=== PATIENT | male | born 1965 | race Caucasian/White ===

== ENCOUNTER → 2024-03-01 16:19 | Outpatient (REF) | payer OTHER, SELFPAY | LOC: RAD 16:19 | PROVIDERS: ATTENDING PHYSICIAN Nurse Practitioner Family; FAMILY PHYSICIAN Family Medicine | DX: R14.0 Abdominal distension (gaseous) (principal); R13.19 Other dysphagia | CPT/HCPCS: 74018 ==

== ENCOUNTER 2024-03-08 08:59 | Emergency (ER) | payer OTHER, SELFPAY ==
[2024-03-08 09:15] VITALS: BP 155/100
[2024-03-08 09:34] LABS: % Basophils 0.8 % (0-2); % Immature Granulocytes 0.3 % (0-0.5); % Lymphocytes 30.2 % (20.5-51.1); % Monocytes 6.3 % (1.7-9.3); % Neutrophils 60.4 % (42.2-75.2); Absolute Basophils 0.1 10^3/uL (0-0.2); Absolute Eosinophils 0.1 10^3/uL (0-0.7); Absolute Lymphocytes 1.9 10^3/uL (1.2-3.4); Absolute Monocytes 0.4 10^3/uL (0.1-0.6); Absolute Neutrophils 3.8 10^3/uL (1.4-6.5); Hematocrit 45.4 % (39.0-52.0); Hemoglobin 16.5 g/dL (13.0-18.0); Mean Corp Hgb Conc. 36.3 g/dL (33.0-37.0); Mean Corpuscular Hgb 31.9 pg (27.0-31.0); Mean Corpuscular Volume 87.8 fL (80.0-94.0); Mean Platelet Volume 9.3 fL (7.4-10.4); Nucleated Red Blood Cells % 0 % (-); Platelet Count 240 10^3/uL (130-400); Red Blood Cell Count 5.17 10^6/uL (4.70-6.10); Red Cell Dist. Width 12.2 % (11.5-14.5); White Blood Cell Count 6.4 10^3/uL (4.8-10.8)
[2024-03-08 09:48] LABS: ALT (SGPT) 38 U/L (0-50); AST (SGOT) 29 U/L (17-59); Albumin 4.8 g/dl (3.5-5.0); Alkaline Phosphatase 57 U/L (38-126); Blood Urea Nitrogen 18 mg/dl (9-20); Calcium 9.9 mg/dl (8.4-10.2); Carbon Dioxide 24 mmol/L (22-30); Chloride 106 mmol/L (98-107); Glucose 102 mg/dl (70-99); Potassium 4.6 mmol/L (3.5-5.1); Sodium 138 mmol/L (135-145); Total Bilirubin 1.2 mg/dl (0.2-1.3); Total Protein 7.9 g/dl (6.3-8.2); eGFR > 60.00
[2024-03-08 09:59] LABS: Troponin I < 0.012 ng/ml
--- NOTE | 2024-03-08 09:59 | ED.GENMED ---
History of Present Illness
General
Chief Complaint: Chest Pain
Source: patient
Exam Limitations: none
Time Seen by Provider: 03/08/24 09:59
Nursing documentation reviewed up to this point in time: agreed with
Travel History
Have you had any contact with someone who has COVID-19?: No
Do you have any symptoms of coronavirus? Fever > 100 degrees, chills, cough, shortness of breath, sore throat, loss of taste or smell, muscle aches, or headache?: No
History of Present Illness
History of Present Illness:
58-year-old male with history of migraines, sciatica, sleep apnea, HTN, HLD, GERD, BPH, UTI, anxiety depression, panic disorder presents stating he woke at 3:30 a.m. with central chest pain radiatig to left arm, felt dizzy, got sweaty, had to run to
the bathroom and had 3 episodes diarrhea. Denies fever/chills. Denies nausea or vomiting.
Took Lorazepam, back to bed, with some improvement.
Pain was 9/10 at 3:30 a.m., now 5/10 and non radiating
Has suprapubic tube and took last dose of 9 doses of Fosfomycin 4 days ago. Followed by Urologist Dr. Parry. Has appt 03/12 for tube change.
Has been SOB with exertion for 'months'
Has appointment with his account financial manager in 3 days for pulmonary function testing.
He does admit to being anxious about his health 'I don't want to collapse and no one be around.' Followed 3 x week by Psychologist.
Past History
Past History
ED Past Medical History: GERD, HTN, Hypercholesterolemia, Psychiatric (Anxiety and Depression Panic disorder) and Other (sarcoidosis-in remission per pt 04/2017, 'aneurisms of carotids', concussion Sep 2016, migraines, Vertigo, Herniated disc, Sleep
apnea, Hiatal hernia, UTI, )
ED Past Surgical History: Orthopedic (ACL left knee repair, Jaw implants Laminectomy) and Urological (TURP, atonic bladder, suprapubic tube)
Patient has exhibited threatening behavior?: No
Social History
Tobacco: Non-smoker
Alcohol: None
Drug: None
Personal: Partner
Living: with roommate
Employment: Disabled
Family History
Family History: CAD and Other
Review of Systems
Review of Systems
Allergies reviewed?: Yes
All Other Systems: ROS reviewed and negative except as documented in HPI and ROS
Constitutional: Denies fever or fatigue
EENT: Reports other (dysphagia followed by GI Dr. Bustillo, for swallow study 03/14)
Respiratory: Reports trouble breathing (Has been short of breath with exertion for 'months.' He is followed by pulmonology. Next appt. in 3 days); Denies cough
Cardiac: Reports chest pain and diaphoresis; Denies palpitations or syncope
ABD/GI: Reports diarrhea (3 episodes during the night); Denies abdominal pain, nausea, vomiting or anorexia
: Reports other (suprapubic tube finished and final dose of Fosfomycin 03/04, to have tube changed 03/12)
Musculoskeletal: Reports back pain (chronic)
Skin: Reports no symptoms
Neurological: Reports dizzy and other (bilateral LE neuropathy); Denies headache, weakness or numbness
Phy Exam
Physical Exam
Physical Exam:
GENERAL: No acute distress. A&Ox3.
CONSTITUTIONAL: Afebrile.
EYES: Clear, conjunctivae normal
ENMT: moist mucus membranes, Pharynx nl
RESPIRATORY: Regular respirations, nonlabored, lungs clear.
CARDIOVASCULAR: Regular rate and rhythm, no murmurs, no rubs.
GI: Soft, nontender, normal BS, Suprapubic catheter intact.
MUSCULOSKELETAL: Moves with ease. Well perfused. No edema
SKIN: Warm, dry, pink
PSYCH: Normal mood and affect. Well kept, interactive and appropriate
NEUROLOGIC: Awake, alert and oriented. No focal neurological deficits
Scores
Heart Score for Chest Pain Patients
STEMI patient?: Not applicable
Course
Orders/Labs/Results
Orders:
Orders
03/08/24 09:07
EKG [Electrocardiogram (*1)] Urgent
Reason for Study: Chest Pain
EKG- Treatment ONCE
03/08/24 09:24
Complete Blood Count/With Diff Urgent
Comprehensive Metabolic Panel Urgent
Troponin I Urgent
03/08/24 10:00
CR Chest - 2 Views Urgent
Comment:
Reason For Exam: chest pain
Abnormal Lab Results
03/08/24
09:24
MCH 31.9 H pg
(27.0-31.0)
Glucose 102 H mg/dl
(70-99)
03/08/24 09:24
03/08/24 09:24
Vital Signs
Initial and Last Documented VS:
Initial Vital Signs
Temp Pulse Resp BP Pulse Ox
98.5 F 68 16 155/100 96
03/08/24 09:15 03/08/24 09:15 03/08/24 09:15 03/08/24 09:15 03/08/24 09:15
Last Documented Vital Signs
Temp Pulse Resp BP Pulse Ox
98.5 F 64 25 139/102 96
03/08/24 09:15 03/08/24 10:44 03/08/24 10:44 03/08/24 10:44 03/08/24 10:44
MDM/Problems Addressed
Differential Diagnosis Includes:
ACS, GERD, medication side effect, anxiety, musculoskeletal
MDM/Problems Addressed:
58-year-old male with history of migraines, sciatica, sleep apnea, HTN, HLD, GERD, BPH, UTI, anxiety depression, panic disorder presents stating he woke at 3:30 a.m. with central chest pain radiatig to left arm, felt dizzy, got sweaty, had to run to
the bathroom and had 3 episodes diarrhea. Denies fever/chills. Denies nausea or vomiting.
Took Lorazepam, back to bed, with some improvement.
Pain was 9/10 at 3:30 a.m., now 5/10 and non radiating
Has suprapubic tube and took last dose of 9 doses of Fosfomycin 4 days ago. Followed by Urologist Dr. Parry. Has appt 03/12 for tube change.
Has been SOB with exertion for 'months'
Has appointment with his account financial manager in 3 days for pulmonary function testing.
He does admit to being anxious about his health 'I don't want to collapse and no one be around.' Followed 3 x week by Psychologist.
10:10 AM
CBC normal
CMP normal troponin normal
Chest x-ray normal
EKG NSR
Side effects of fosfomycin include dyspepsia, diarrhea and these may be the etiology of patient's symptoms.
Patient does admit to being anxious about his health
Reassured nothing worrisome in today's workup
Patient will keep follow-up appointments with GI doctor, urologist, account financial manager and psychologist.
*Critical Care Note
Total Time (30-74mins, 75-104mins- exclusive of procedures): Not Applicable
ED Attending Note
-
Portions of this chart may have been created with voice recognition software.� Occasional wrong word or��sound alike� substitutions may have occurred due to the inherent limitations of voice recognition software.
Discharge Plan
Departure
Patient Disposition: Home (Routine Discharge)
Date of Disposition: 03/08/24
Time of Disposition: 10:51
Patient with high blood pressure during this ER visit?: No
Condition: Good
Discharge Problem:
Atypical chest pain, Anxiety about health
Instructions: Chest Pain That Is Not Caused by the Heart (DC), Acid Reflux and GERD in Adults (DC)
Prescriptions:
No Action
valacyclovir [Valtrex] 500 MG tablet
500 mg PO DAILY
lorazepam 1 MG tablet
1 mg PO BID PRN (Reason: ANXIETY)
Patient Comments:
11/18/2023: LAST FILLED 10/06/23, 60 TABS FOR 30 DAYS FROM [facility]#[id number]
famotidine 20 MG tablet
20 mg PO BID
nebivolol 2.5 MG tablet
1.25 mg PO HS
albuterol sulfate 90 mcg/actuation HFA aerosol inhaler
2 puff INHALATION R Q4 PRN (Reason: SOB/WHEEZING)
cyclosporine 0.05 % dropperette
1 drp BOTH EYES HS
metoclopramide HCl [Reglan] 10 mg tablet
10 mg PO Q8HPRN PRN (Reason: Migraine headache) Qty: 30 0RF
Referrals:
Your, Surface Grinder [Other] - Keep scheduled appt
Paolo Bustillo MD [Active] - Keep scheduled appt
Activity Restrictions/Additional Instructions:
As we discussed, there is nothing worrisome in your workup here today, specifically no sign of a heart attack.
Some of the side effects of fosfomycin include heartburn, nausea, diarrhea so your symptoms may be side effect from this medication. Keep your appointments with your account financial manager, GI doctor as scheduled.
Interventions
Interventions:
*Risk Screen - Suicide Last Done: 03/08/24 09:15
*General Assessment Last Done: 03/08/24 09:15
*Neglect/Abuse Screening Last Done: 03/08/24 09:15
*Nursing Disposition Last Done: 03/08/24 11:06
ED- Cardiac Assessment Last Done: 03/08/24 10:12
Discharge Date and Time
Discharge Date/Time: 03/08/24 11:11
Print Language: GEORGIAN
[2024-03-08 10:11] VITALS: BMI 29.7
[2024-03-08 10:44] VITALS: BP 139/102
== END 2024-03-08 11:11 | disposition home or self-care (01) ==
LOC: EMR 08:59
PROVIDERS: Physician Assistant; EMERGENCY PHYSICIAN Student in an Organized Health Care Education/Training Program; FAMILY PHYSICIAN Family Medicine
DX: R07.89 Other chest pain (principal); F41.9 Anxiety disorder, unspecified; R42 Dizziness and giddiness; R19.7 Diarrhea, unspecified; R06.02 Shortness of breath; G43.909 Migraine, unspecified, not intractable, without status migrainosus; R13.10 Dysphagia, unspecified; M54.30 Sciatica, unspecified side; G47.30 Sleep apnea, unspecified; E78.00 Pure hypercholesterolemia, unspecified; K21.9 Gastro-esophageal reflux disease without esophagitis; I10 Essential (primary) hypertension; N40.0 Benign prostatic hyperplasia without lower urinary tract symptoms; F41.0 Panic disorder [episodic paroxysmal anxiety]; F32.A Depression, unspecified; D86.9 Sarcoidosis, unspecified; G62.9 Polyneuropathy, unspecified; K44.9 Diaphragmatic hernia without obstruction or gangrene; M51.25 Other intervertebral disc displacement, thoracolumbar region; Z87.440 Personal history of urinary (tract) infections; Z87.820 Personal history of traumatic brain injury; Z88.1 Allergy status to other antibiotic agents; Z88.5 Allergy status to narcotic agent; Z88.2 Allergy status to sulfonamides; Z88.8 Allergy status to other drugs, medicaments and biological substances
CPT/HCPCS: 99284; 71046; 80053; 84484; 85025; 93005

== ENCOUNTER 2024-03-15 14:02 | Emergency (ER) | payer OTHER, SELFPAY ==
[2024-03-15 14:07] VITALS: BP 172/110
[2024-03-15 14:32] LABS: % Basophils 0.7 % (0-2); % Eosinophils 1.5 % (0-6); % Immature Granulocytes 0.1 % (0-0.5); % Monocytes 6.4 % (1.7-9.3); % Neutrophils 52.3 % (42.2-75.2); Absolute Basophils 0.1 10^3/uL (0-0.2); Absolute Eosinophils 0.1 10^3/uL (0-0.7); Absolute Lymphocytes 2.9 10^3/uL (1.2-3.4); Absolute Monocytes 0.5 10^3/uL (0.1-0.6); Absolute Neutrophils 3.9 10^3/uL (1.4-6.5); Hematocrit 47.7 % (39.0-52.0); Hemoglobin 16.9 g/dL (13.0-18.0); Mean Corp Hgb Conc. 35.4 g/dL (33.0-37.0); Mean Corpuscular Hgb 31.4 pg (27.0-31.0); Mean Corpuscular Volume 88.5 fL (80.0-94.0); Mean Platelet Volume 9.5 fL (7.4-10.4); Nucleated Red Blood Cells % 0 % (-); Platelet Count 221 10^3/uL (130-400); Red Blood Cell Count 5.39 10^6/uL (4.70-6.10); Red Cell Dist. Width 12.2 % (11.5-14.5); White Blood Cell Count 7.5 10^3/uL (4.8-10.8)
[2024-03-15 14:50] LABS: ALT (SGPT) 47 U/L (0-50); AST (SGOT) 30 U/L (17-59); Albumin 4.7 g/dl (3.5-5.0); Alkaline Phosphatase 54 U/L (38-126); Blood Urea Nitrogen 15 mg/dl (9-20); Calcium 9.6 mg/dl (8.4-10.2); Carbon Dioxide 26 mmol/L (22-30); Chloride 104 mmol/L (98-107); Glucose 87 mg/dl (70-99); Potassium 4.3 mmol/L (3.5-5.1); Sodium 135 mmol/L (135-145); Total Bilirubin 1.5 mg/dl (0.2-1.3); Total Protein 8.1 g/dl (6.3-8.2); eGFR > 60.00
[2024-03-15 14:59] LABS: Troponin I < 0.012 ng/ml
[2024-03-15 17:07] VITALS: BP 163/111
[2024-03-15 17:13] VITALS: BP 172/106
[2024-03-15 18:00] VITALS: BP 149/101
--- NOTE | 2024-03-15 19:02 | ED.GENMED ---
History of Present Illness
General
Chief Complaint: Chest Pain
Source: patient
Exam Limitations: none
Time Seen by Provider: 03/15/24 17:19
Nursing documentation reviewed up to this point in time: agreed with
Travel History
Have you had any contact with someone who has COVID-19?: No
Do you have any symptoms of coronavirus? Fever > 100 degrees, chills, cough, shortness of breath, sore throat, loss of taste or smell, muscle aches, or headache?: No
History of Present Illness
History of Present Illness:
Patient presents to ED for evaluation, after he developed chest pain with elevated blood pressure during outpatient, scheduled GI procedure this afternoon. Patient states that as the camera was being passed down his nose and down his throat, he
started gagging. This is when he developed chest pain, with left arm numbness sensation, along with elevated blood pressure. Denies shortness of breath. Denies headache. Denies nausea or vomiting. Patient does report feeling sweaty with
lightheaded sensation. Patient was subsequently transferred to ED for an evaluation. During the course of observation, patient states that his symptoms have all resolved.
Past History
Past History
ED Past Medical History: GERD, HTN, Hypercholesterolemia, Psychiatric (Anxiety and Depression Panic disorder) and Other (sarcoidosis-in remission per pt 04/2017, 'aneurisms of carotids', concussion Sep 2016, migraines, Vertigo, Herniated disc, Sleep
apnea, Hiatal hernia, UTI, )
ED Past Surgical History: Orthopedic (ACL left knee repair, Jaw implants Laminectomy) and Urological (TURP, atonic bladder, suprapubic tube)
Patient has exhibited threatening behavior?: No
Social History
Tobacco: Non-smoker
Alcohol: None
Drug: None
Personal: Partner
Living: with roommate
Employment: Disabled
Family History
Family History: CAD and Other
Review of Systems
Review of Systems
Allergies reviewed?: Yes
All Other Systems: ROS reviewed and negative except as documented in HPI and ROS
Constitutional: Reports no symptoms
EENT: Reports no symptoms
Respiratory: Reports no symptoms
Cardiac: Reports chest pain and diaphoresis
ABD/GI: Reports no symptoms
: Reports no symptoms
Musculoskeletal: Reports no symptoms
Skin: Reports no symptoms
Neurological: Reports dizzy
Phy Exam
Physical Exam
Physical Exam:
Physical Exam
General: no apparent distress, not acutely ill. afebrile
Head: nc/at. eomi
Neck: supple. no meningeal signs.
Heart: s1/s2 regular rate and rhythm, no murmur. equal radial pulses.
Lungs: no acute respiratory distress. clear bilaterally
Abdomen: normal bowel sounds. not tender.
Neuro: alert and oriented. no focal neurological deficits
Skin: no rash
Psychiatric: well kept. interactive and cooperative
Extremities: no edema. no calf tenderness.
Scores
Heart Score for Chest Pain Patients
STEMI patient?: Not applicable
Course
Orders/Labs/Results
Orders:
Orders
03/15/24 14:04
Electrocardiogram (*1) Urgent
Reason for Study: Chest Pain
EKG- Treatment ONCE
03/15/24 14:17
Complete Blood Count/With Diff Urgent
Comprehensive Metabolic Panel Urgent
Troponin I Urgent
Abnormal Lab Results
03/15/24
14:17
MCH 31.4 H pg
(27.0-31.0)
Total Bilirubin 1.5 H mg/dl
(0.2-1.3)
03/15/24 14:17
03/15/24 14:17
Vital Signs
Initial and Last Documented VS:
Initial Vital Signs
Temp Pulse Resp BP Pulse Ox
98.4 F 73 18 172/110 98
03/15/24 14:07 03/15/24 14:07 03/15/24 14:07 03/15/24 14:07 03/15/24 14:07
Last Documented Vital Signs
Temp Pulse Resp BP Pulse Ox
98.4 F 65 21 149/101 96
03/15/24 14:07 03/15/24 18:30 03/15/24 18:30 03/15/24 18:00 03/15/24 18:30
MDM/Problems Addressed
MDM/Problems Addressed:
History and exam consistent with likely vagal response from procedure. Since arrival to ED, patient has remained symptom-free. Blood pressure remains mildly elevated, but patient has not taken his evening blood pressure medication. As such,
patient will be discharged home at this time, with recommendation to follow-up with his pillowcase folder for reevaluation, including potentially additional medication to better control his blood pressure. Patient expresses understanding at time of
discharge.
*Critical Care Note
Total Time (30-74mins, 75-104mins- exclusive of procedures): Not Applicable
ED Attending Note
-
Portions of this chart may have been created with voice recognition software.� Occasional wrong word or��sound alike� substitutions may have occurred due to the inherent limitations of voice recognition software.
Discharge Plan
Departure
Patient Disposition: Home (Routine Discharge)
Date of Disposition: 03/15/24
Time of Disposition: 19:06
Patient with high blood pressure during this ER visit?: Yes
Discharge Problem:
Hypertension
Instructions: High Blood Pressure (DC)
Prescriptions:
No Action
valacyclovir [Valtrex] 500 MG tablet
500 mg PO DAILY
lorazepam 1 MG tablet
1 mg PO BID PRN (Reason: ANXIETY)
Patient Comments:
11/18/2023: LAST FILLED 10/06/23, 60 TABS FOR 30 DAYS FROM [id number]
famotidine 20 MG tablet
20 mg PO BID
nebivolol 2.5 MG tablet
1.25 mg PO HS
albuterol sulfate 90 mcg/actuation HFA aerosol inhaler
2 puff INHALATION R Q4 PRN (Reason: SOB/WHEEZING)
cyclosporine 0.05 % dropperette
1 drp BOTH EYES HS
metoclopramide HCl [Reglan] 10 mg tablet
10 mg PO Q8HPRN PRN (Reason: Migraine headache) Qty: 30 0RF
Referrals:
Maria A Mcintyre DO [Family Provider] -
Srinivas Delcid MD [Active] -
Activity Restrictions/Additional Instructions:
As discussed, please follow-up with your primary care physician and/or pillowcase folder for further evaluation treatment, including potential medication adjustment.
Interventions
Interventions:
*Risk Screen - Suicide Last Done: 03/15/24 14:04
*General Assessment Last Done: 03/15/24 14:04
*Neglect/Abuse Screening Last Done: 03/15/24 14:04
ED- Fall Risk Assessment Last Done: 03/15/24 19:29
*ED COVID-19 Vaccine History Last Done: 03/15/24 14:04
*Nursing Disposition Last Done: 03/15/24 19:29
ED- Cardiac Assessment Last Done: 03/15/24 17:37
Discharge Date and Time
Discharge Date/Time: 03/15/24 19:30
Print Language: [place]
== END 2024-03-15 19:30 | disposition home or self-care (01) ==
LOC: EMR 14:02
PROVIDERS: Emergency Medicine; EMERGENCY PHYSICIAN Emergency Medicine; FAMILY PHYSICIAN Family Medicine
DX: I10 Essential (primary) hypertension (principal)
CPT/HCPCS: 99284; 80053; 84484; 85025; 93005

== ENCOUNTER → 2024-04-02 07:04 | Outpatient (REF) | payer OTHER, SELFPAY | LOC: RCS 07:04 | PROVIDERS: ATTENDING PHYSICIAN Physician Assistant; FAMILY PHYSICIAN Family Medicine | DX: R07.89 Other chest pain (principal); I10 Essential (primary) hypertension; R07.9 Chest pain, unspecified; R06.02 Shortness of breath | CPT/HCPCS: 93306 ==

== ENCOUNTER 2024-04-07 13:23 | Emergency (ER) | payer OTHER, SELFPAY ==
[2024-04-07 13:30] VITALS: BP 163/122
[2024-04-07 14:07] LABS: ALT (SGPT) 44 U/L (0-50); AST (SGOT) 25 U/L (17-59); Albumin 4.7 g/dl (3.5-5.0); Alkaline Phosphatase 56 U/L (38-126); Blood Urea Nitrogen 8 mg/dl (9-20); Calcium 9.6 mg/dl (8.4-10.2); Carbon Dioxide 28 mmol/L (22-30); Chloride 105 mmol/L (98-107); Glucose 96 mg/dl (70-99); Potassium 4.1 mmol/L (3.5-5.1); Sodium 141 mmol/L (135-145); Total Bilirubin 0.9 mg/dl (0.2-1.3); Total Protein 7.8 g/dl (6.3-8.2); eGFR > 60.00
[2024-04-07 14:08] LABS: % Basophils 0.8 % (0-2); % Eosinophils 2.3 % (0-6); % Immature Granulocytes 0.3 % (0-0.5); % Lymphocytes 36.1 % (20.5-51.1); % Neutrophils 53.5 % (42.2-75.2); Absolute Basophils 0.1 10^3/uL (0-0.2); Absolute Eosinophils 0.2 10^3/uL (0-0.7); Absolute Lymphocytes 2.4 10^3/uL (1.2-3.4); Absolute Monocytes 0.5 10^3/uL (0.1-0.6); Absolute Neutrophils 3.5 10^3/uL (1.4-6.5); Hematocrit 45.8 % (39.0-52.0); Mean Corp Hgb Conc. 34.9 g/dL (33.0-37.0); Mean Corpuscular Hgb 31.2 pg (27.0-31.0); Mean Corpuscular Volume 89.3 fL (80.0-94.0); Mean Platelet Volume 9.6 fL (7.4-10.4); Nucleated Red Blood Cells % 0 % (-); Platelet Count 236 10^3/uL (130-400); Red Blood Cell Count 5.13 10^6/uL (4.70-6.10); Red Cell Dist. Width 12.2 % (11.5-14.5); White Blood Cell Count 6.6 10^3/uL (4.8-10.8)
[2024-04-07 14:42] LABS: Urine Albumin Trace (Neg - Trace); Urine Bilirubin 2+ (Negative); Urine Character Clear (Clear); Urine Glucose Negative (Negative); Urine Ketone Negative (Negative); Urine Leukocyte 2+ (Negative); Urine Nitrite Positive (Negative); Urine Occult Blood 2+ (Negative); Urine Urobilinogen 3+ (Neg - 1+)
[2024-04-07 14:52] LABS: Urine Color Orange
[2024-04-07 15:10] LABS: Urine Bacteria Few (Negative)
[2024-04-07 15:11] LABS: Urine White Cell 21-25 /HPF (0-5)
[2024-04-07 15:14] LABS: Urine Squamous Cell 0-2 /LPF (Few); Urine Urothelial Cell 0-2 /LPF (FEW)
--- NOTE | 2024-04-07 16:03 | ED.GENMED ---
History of Present Illness
General
Chief Complaint: Urinary Symptoms
Source: patient
Time Seen by Provider: 04/07/24 15:48
Travel History
Have you had any contact with someone who has COVID-19?: No
Do you have any symptoms of coronavirus? Fever > 100 degrees, chills, cough, shortness of breath, sore throat, loss of taste or smell, muscle aches, or headache?: No
History of Present Illness
History of Present Illness:
58-year-old male with chronic indwelling suprapubic Preston catheter presenting to the emergency department from urology office for evaluation of bilateral flank and groin pain over the last few days, had his suprapubic catheter changed a couple of
days ago and since that time has had worsening symptoms. Had an appointment at urology office today and due to the pain was sent to the ER for further evaluation. Patient reports that he had a bladder scan done at the office which did not show any
urine retained. He states pain to the bilateral testicles presently but no lesions or sores. He states that when he has to have a bowel movement he notes increased pressure and discomfort with in the suprapubic region and scrotum. Patient states
he has been taking Azo for bladder spasm with minimal relief. He notes that about a week or so ago he finished a course of amoxicillin for urinary tract infection. He denies any traumatic injuries. Has noted history for genital herpes in the past
but no current outbreaks. No other concerns.
Past History
Past History
ED Past Medical History: GERD, HTN, Hypercholesterolemia, Psychiatric (Anxiety and Depression Panic disorder) and Other (sarcoidosis-in remission per pt 04/2017, 'aneurisms of carotids', concussion Sep 2016, migraines, Vertigo, Herniated disc, Sleep
apnea, Hiatal hernia, UTI, )
ED Past Surgical History: Orthopedic (ACL left knee repair, Jaw implants Laminectomy) and Urological (TURP, atonic bladder, suprapubic tube)
Patient has exhibited threatening behavior?: No
Social History
Tobacco: Non-smoker
Alcohol: None
Drug: None
Personal: Partner
Living: with roommate
Employment: Disabled
Family History
Family History: CAD and Other
Review of Systems
Review of Systems
All Other Systems: ROS reviewed and negative except as documented in HPI and ROS
Phy Exam
Physical Exam
Physical Exam:
GENERAL: Alert , in no apparent distress but does appear uncomfortable
EYE: clear conjunctiva b/l
HEAD: NCAT
ENT: mmm.
ABDOMEN: Soft, without focal tenderness, no r/g, no cvat, negative Javier sign, no tenderness at McBurney's point
Genitourinary: Circumcised, normal lying testicles, positive cremasteric reflex bilateral, no testicular tenderness or epididymal tenderness, no overlying erythema, no perineal crepitus or erythema, no urethral discharge
NEUROLOGICAL: Alert and oriented
SKIN: Warm and dry, skin intact.
MUSCULOSKELETAL: No edema, well perfused.
PSYCH: Normal and appropriate interaction.
Scores
Heart Failure Risk
Heart Failure Risk Score: Not Applicable
Heart Score for Chest Pain Patients
STEMI patient?: Not applicable
Withdrawal Assessment of Alcohol
Withdrawal Assessment Completed?: Not applicable
Course
Orders/Labs/Results
Orders:
Orders
04/07/24 13:39
CT Abd/pelvis Wo Iv Cont Urgent
Comment:
Reason For Exam: pelvic pain since suprabulic tube placed
04/07/24 13:41
US Scrotum Urgent
Comment:
Reason For Exam: testicular pain
04/07/24 13:46
Complete Blood Count/With Diff Urgent
Comprehensive Metabolic Panel Urgent
Urinalysis Reflex To Culture Urgent
Date Specimen was Collected: 04/07/24
Time Specimen was Collected: 13:31
Urine Microscopic Reflex Cult Urgent
Urine Culture Urgent
LEXY Source: U
Specimen Description:
Date Specimen was Collected: 04/07/24
Time Specimen was Collected: 13:31
Abnormal Lab Results
04/07/24
13:46
MCH 31.2 H pg
(27.0-31.0)
BUN 8 L mg/dl
(9-20)
Ur Occult Blood Reflex 2+ A
(Negative)
Urine Nitrite (Reflex) Positive A
(Negative)
Urine Bilirubin 2+ A
(Negative)
Urine Urobilinogen 3+ A
(Neg - 1+)
Leukocyte Esterase Rfl 2+ A
(Negative)
Urine RBC 3-6 A /HPF
(0-2)
Urine WBC (Reflex) 21-25 A /HPF
(0-5)
Urine Bacteria (Reflex) Few A
(Negative)
04/07/24 13:46
04/07/24 13:46
Vital Signs
Initial and Last Documented VS:
Initial Vital Signs
Temp Pulse Resp BP Pulse Ox
97.9 F 79 17 163/122 99
04/07/24 13:30 04/07/24 13:30 04/07/24 13:30 04/07/24 13:30 04/07/24 13:30
Last Documented Vital Signs
Temp Pulse Resp BP Pulse Ox
97.6 F 72 16 148/82 99
04/07/24 17:04 04/07/24 17:04 04/07/24 17:04 04/07/24 17:04 04/07/24 17:04
MDM/Problems Addressed
Differential Diagnosis Includes:
Urinary tract infection, epididymitis/orchitis, renal/ureteral colic, chronic pain, catheter associated pain, pyelonephritis
MDM/Problems Addressed:
58-year-old male presenting emergency department for evaluation of gradually worsening pelvic pain/suprapubic pain after having recent catheter exchange. Patient was in so much discomfort at urology office today so was sent to the ER to be further
evaluated. Patient's labs show no leukocytosis or any renal dysfunction. Urinalysis is nitrite positive, 2+ leukocyte esterase and 21-[address] of the abdomen pelvis and ultrasound were ordered. Ultimately no acute findings on these tests
either. Patient has multiple previous culture reports and amoxicillin does appear to be resistant on some of his urine cultures so it certainly possible patient had antibiotic failure due to organism resistance. Will discuss case with urology to
help determine treatment plan and disposition.
Chronic conditions affecting care: Previous abdomnial surgery
Acute Exacerbation and/or Progression of Chronic Illness: Previous abdomnial surgery
*Radiology
Radiology exam reviewed: radiology read reviewed
*Pulse Oximetry
Patient hypoxic: no
*Critical Care Note
Total Time (30-74mins, 75-104mins- exclusive of procedures): Not Applicable
Data Reviewed
Review of Other/Old Records Reveals: Labs and Records (Patient had urinalysis/urine culture done on September 27, 2023 which grew Citrobacter Freundii. This was resistant to Augmentin and other penicillins but was otherwise pansensitive)
Source: patient and records
Patient Management
Discussion with other providers: Filter Press Supervisor
Escalation/DeEscalation of care consider admission/obs:
Ultrasound and CT unremarkable. I notified patient's urology team and we will initiate patient on Monuril although I do suspect there is some degree of colonization given his chronic indwelling catheter. Patient aware of return precautions ER but
is otherwise stable for discharge home.
ED Attending Note
-
Portions of this chart may have been created with voice recognition software.� Occasional wrong word or��sound alike� substitutions may have occurred due to the inherent limitations of voice recognition software.
Discharge Plan
Departure
Patient Disposition: Home (Routine Discharge)
Date of Disposition: 04/07/24
Time of Disposition: 16:19
Patient with high blood pressure during this ER visit?: Yes
Discharge Problem:
Urinary tract infection
Instructions: Urinary Tract Infection, Adult (DC)
Prescriptions:
New
fosfomycin tromethamine 3 gram packet
3 g PO Q3D Qty: 2 0RF
No Action
valacyclovir [Valtrex] 500 MG tablet
500 mg PO DAILY
lorazepam 1 MG tablet
1 mg PO BID PRN (Reason: ANXIETY)
Patient Comments:
11/18/2023: LAST FILLED 10/06/23, 60 TABS FOR 30 DAYS FROM [facility]#[id number]
famotidine 20 MG tablet
20 mg PO BID
nebivolol 2.5 MG tablet
1.25 mg PO HS
albuterol sulfate 90 mcg/actuation HFA aerosol inhaler
2 puff INHALATION R Q4 PRN (Reason: SOB/WHEEZING)
cyclosporine 0.05 % dropperette
1 drp BOTH EYES HS
metoclopramide HCl [Reglan] 10 mg tablet
10 mg PO Q8HPRN PRN (Reason: Migraine headache) Qty: 30 0RF
Referrals:
Maria A Mcintyre DO [Family Provider] -
Harshal Roca MD [Active] -
Interventions
Interventions:
*ED COVID-19 Vaccine History Last Done: 04/07/24 13:30
*Nursing Disposition Last Done: 04/07/24 17:05
ED-Male Genitourinary Assessment Last Done: 04/07/24 17:03
Discharge Date and Time
Discharge Date/Time: 04/07/24 17:05
Print Language: [place]
[2024-04-07 17:04] VITALS: BP 148/82
== END 2024-04-07 17:05 | disposition home or self-care (01) ==
LOC: EMR 13:23
PROVIDERS: EMERGENCY PHYSICIAN Emergency Medicine; FAMILY PHYSICIAN Family Medicine
DX: N39.0 Urinary tract infection, site not specified (principal); N50.811 Right testicular pain; N50.812 Left testicular pain; I10 Essential (primary) hypertension; K21.9 Gastro-esophageal reflux disease without esophagitis; F41.9 Anxiety disorder, unspecified; F32.A Depression, unspecified; F41.0 Panic disorder [episodic paroxysmal anxiety]; E78.00 Pure hypercholesterolemia, unspecified; D86.9 Sarcoidosis, unspecified; G47.30 Sleep apnea, unspecified; K44.9 Diaphragmatic hernia without obstruction or gangrene; G43.909 Migraine, unspecified, not intractable, without status migrainosus; Z88.6 Allergy status to analgesic agent; Z88.1 Allergy status to other antibiotic agents; Z88.5 Allergy status to narcotic agent; Z88.2 Allergy status to sulfonamides; Z88.8 Allergy status to other drugs, medicaments and biological substances
CPT/HCPCS: 99284; 74176; 76870; 80053; 81003; 81015; 85025; 87077; 87086; 87147; 87186; 93976

== ENCOUNTER → 2024-06-04 10:21 | Outpatient (REF) | payer OTHER, MEDICARE, SELFPAY | LOC: REG 10:21 | PROVIDERS: ATTENDING PHYSICIAN Specialist; FAMILY PHYSICIAN Family Medicine | DX: R33.8 Other retention of urine (principal) | CPT/HCPCS: 36415; 87086 ==

== ENCOUNTER 2024-07-01 15:42 | Emergency (ER) | payer OTHER, MEDICARE, SELFPAY ==
[2024-07-01 15:58] VITALS: BP 152/103
[2024-07-01 16:29] LABS: % Basophils 0.8 % (0-2); % Eosinophils 2.4 % (0-6); % Immature Granulocytes 0.3 % (0-0.5); % Lymphocytes 37.3 % (20.5-51.1); % Monocytes 6.5 % (1.7-9.3); % Neutrophils 52.7 % (42.2-75.2); Absolute Basophils 0.1 10^3/uL (0-0.2); Absolute Eosinophils 0.2 10^3/uL (0-0.7); Absolute Lymphocytes 2.5 10^3/uL (1.2-3.4); Absolute Monocytes 0.4 10^3/uL (0.1-0.6); Absolute Neutrophils 3.5 10^3/uL (1.4-6.5); Hemoglobin 15.5 g/dL (13.0-18.0); Mean Corpuscular Hgb 31.1 pg (27.0-31.0); Mean Corpuscular Volume 86.3 fL (80.0-94.0); Mean Platelet Volume 9.4 fL (7.4-10.4); Nucleated Red Blood Cells % 0 % (-); Platelet Count 242 10^3/uL (130-400); Red Blood Cell Count 4.98 10^6/uL (4.70-6.10); Red Cell Dist. Width 12.5 % (11.5-14.5); White Blood Cell Count 6.6 10^3/uL (4.8-10.8)
[2024-07-01 16:37] LABS: ALT (SGPT) 31 U/L (0-50); AST (SGOT) 27 U/L (17-59); Albumin 4.8 g/dl (3.5-5.0); Alkaline Phosphatase 51 U/L (38-126); Blood Urea Nitrogen 11 mg/dl (9-20); Calcium 9.5 mg/dl (8.4-10.2); Carbon Dioxide 23 mmol/L (22-30); Chloride 107 mmol/L (98-107); Glucose 123 mg/dl (70-99); Potassium 3.8 mmol/L (3.5-5.1); Sodium 140 mmol/L (135-145); Total Bilirubin 0.9 mg/dl (0.2-1.3); Total Protein 7.5 g/dl (6.3-8.2); eGFR > 60.00
--- NOTE | 2024-07-01 17:50 | ED.GENMED ---
History of Present Illness
General
Chief Complaint: Flank Pain
Time Seen by Provider: 07/01/24 17:50
History of Present Illness
History of Present Illness:
HPI: Patient presents with general unwell feeling and multiple complaints. He has a neurogenic bladder. He has increasing abdominal discomfort. He reports a history of 'the urine backing up into my kidneys' around the time that he had back
surgery a few years ago and had a Preston catheter which was then switched to an SP tube last year. He felt chills. He went to see urologist today where he saw a nurse and they performed a urine culture which will be pending for the next few days
according to the patient. He also reports some confusion and slurred speech
EXAM:
GENERAL: Well appearing in mild distress
HEENT: Moist oral mucosa
CARDIOVASCULAR: No murmurs, normal heart rate, regular rhythm, No chest wall tenderness
PULMONARY: No respiratory distress, breath sounds are clear and equal
ABDOMEN: Soft with no peritoneal signs, diffuse abdominal tenderness, SP tube noted and there is tenderness near the SP insertion site
NEUROLOGIC: Excellent strength all extremities, no coordination deficits, specifically there is no slurred speech on physical examination and he has a nonfocal neurologic examination
PSYCHIATRIC: Appropriate mental status, normal insight and judgement
EXTREMITIES: Nontender, no edema, moves all extremities equally, Preston catheter drainage bag noted around the right thigh this is an acute problem
SKIN: No rash, no lesions
TIME OF INITIAL ENCOUNTER: 6 PM
NUMBER AND COMPLEXITY OF PROBLEMS ADDRESSED AT THE ENCOUNTER
� Chronic conditions affecting care: High blood pressure, hyperlipidemia, BPH, neurogenic bladder
� Acute Exacerbation and/or Progression of Chronic Illness: This is an acute but recurrent problem
� Differential Diagnosis includes: UTI, pyelonephritis, noninfectious bladder pain
AMOUNT AND/OR COMPLEXITY OF DATA TO BE REVIEWED AND ANALYZED
� I performed an independent evaluation of and my interpretation is:
EKG:
CT: CT head shows no acute abnormality
X-rays:
Laboratory Studies: White count, hemoglobin, and chemistries unremarkable
Other:
� Review of other/old records: I reviewed records urine cultures in the past grew Citrobacter freundii
� Clinical information was obtained by an independent historian: None needed
� Prescriptions/Medications Considered but not given: Consider different antibiotics however the patient has multiple intolerances and I also reviewed the urine cultures/sensitivities
� Further testing considered but not performed:
RISK OF COMPLICATIONS AND/OR MORBIDITY OR MORTALITY OF PATIENT MANAGEMENT
� Social determinants of health affecting care: Lives at home
� Discussion with other providers: Discussed case with Dr. Peacock and ultimately we decided to try Monurol again
� Escalation of care including admission/observation vs risk of discharge considered: The patient is concerned because of ongoing pain. He also has other complaints including slurred speech however no slurred speech is noted on
physical examination. CT of the brain was obtained which was unremarkable. He states he gave a urinalysis to the urologist nurse earlier today and urine culture pending.
Past History
Past History
ED Past Medical History: GERD, HTN, Hypercholesterolemia, Psychiatric (Anxiety and Depression Panic disorder) and Other (sarcoidosis-in remission per pt 04/2017, 'aneurisms of carotids', concussion Sep 2016, migraines, Vertigo, Herniated disc, Sleep
apnea, Hiatal hernia, UTI, )
ED Past Surgical History: Orthopedic (ACL left knee repair, Jaw implants Laminectomy) and Urological (TURP, atonic bladder, suprapubic tube)
Patient has exhibited threatening behavior?: No
Social History
Tobacco: Non-smoker
Alcohol: None
Drug: None
Personal: Partner
Living: with roommate
Employment: Disabled
Family History
Family History: CAD and Other
Phy Exam
Physical Exam
Physical Exam:
See HPI
Course
Orders/Labs/Results
Orders:
Orders
07/01/24 16:02
Electrocardiogram (*1) Urgent
Reason for Study: Abdominal Pain
EKG- Treatment ONCE
07/01/24 16:09
Complete Blood Count/With Diff Urgent
Comprehensive Metabolic Panel Urgent
07/01/24 18:07
CT Abd/pel Without Iv Or Oral Urgent
Comment:
Reason For Exam: increasing abd/back pain, SP tube
CT Head W/o Iv Contrast Urgent
Comment:
Reason For Exam: slurred speech confusion
07/01/24 19:09
ECG [Electrocardiogram (*1)] Urgent
Reason for Study: Chest Pain
EKG- Treatment ONCE
07/01/24 21:58
Urinalysis Reflex To Culture Urgent
Date Specimen was Collected: 07/01/24
Time Specimen was Collected: 21:56
Urine Microscopic Reflex Cult Urgent
Urine Culture Urgent
LEXY Source: U
Specimen Description:
Date Specimen was Collected: 07/01/24
Time Specimen was Collected: 21:56
07/01/24 22:22
Fosfomycin [Monurol] 3 gm PO ONCE ONE
Abnormal Lab Results
07/01/24 07/01/24
16:09 21:58
MCH 31.1 H pg
(27.0-31.0)
Glucose 123 H mg/dl
(70-99)
Ur Occult Blood Reflex Trace A
(Negative)
Urine Nitrite (Reflex) Positive A
(Negative)
Leukocyte Esterase Rfl 2+ A
(Negative)
Urine WBC (Reflex) 80-90 A /HPF
(0-5)
Urine Bacteria (Reflex) Moderate A
(Negative)
07/01/24 16:09
07/01/24 16:09
Vital Signs
Initial and Last Documented VS:
Initial Vital Signs
Temp Pulse Resp BP Pulse Ox
98.1 F 66 16 152/103 95
07/01/24 15:58 07/01/24 15:58 07/01/24 15:58 07/01/24 15:58 07/01/24 15:58
Last Documented Vital Signs
Temp Pulse Resp BP Pulse Ox
98.1 F 77 18 142/88 94
07/01/24 15:58 07/01/24 21:56 07/01/24 21:56 07/01/24 21:56 07/01/24 21:56
*Critical Care Note
Total Time (30-74mins, 75-104mins- exclusive of procedures): Not Applicable
ED Attending Note
-
Portions of this chart may have been created with voice recognition software.� Occasional wrong word or��sound alike� substitutions may have occurred due to the inherent limitations of voice recognition software.
Discharge Plan
Departure
Patient Disposition: Home (Routine Discharge)
Date of Disposition: 07/01/24
Time of Disposition: 22:24
Patient with high blood pressure during this ER visit?: Yes
Discharge Problem:
Urinary tract infection
Instructions: Urinary Tract Infection, Adult ED
Prescriptions:
New
fosfomycin tromethamine 3 gram packet
3 g PO ONCE Qty: 2 0RF
Rx Instructions:
Take dose on Friday and Friday
No Action
valacyclovir [Valtrex] 500 MG tablet
500 mg PO DAILY
lorazepam 1 MG tablet
1 mg PO BID PRN (Reason: ANXIETY)
Patient Comments:
11/18/2023: LAST FILLED 10/06/23, 60 TABS FOR 30 DAYS FROM [facility]#[id number]
famotidine 20 MG tablet
20 mg PO BID
nebivolol 2.5 MG tablet
1.25 mg PO HS
albuterol sulfate 90 mcg/actuation HFA aerosol inhaler
2 puff INHALATION R Q4 PRN (Reason: SOB/WHEEZING)
cyclosporine 0.05 % dropperette
1 drp BOTH EYES HS
metoclopramide HCl [Reglan] 10 mg tablet
10 mg PO Q8HPRN PRN (Reason: Migraine headache) Qty: 30 0RF
fosfomycin tromethamine 3 gram packet
3 g PO Q3D Qty: 2 0RF
Referrals:
Maria A Mcintyre DO [Family Provider] -
Harshal Roca MD [Active] - Follow up in 2-3 days
Activity Restrictions/Additional Instructions:
We gave a dose of Monurol today. I gave a prescription for Monurol to take another dose on Friday and then another dose on Friday. Follow-up with your urologist.
Interventions
Interventions:
*Risk Screen - Suicide Last Done: 07/01/24 15:58
*General Assessment Last Done: 07/01/24 15:58
*Neglect/Abuse Screening Last Done: 07/01/24 15:58
ED- Fall Risk Assessment Last Done: 07/01/24 22:42
*ED COVID-19 Vaccine History Last Done: 07/01/24 15:58
*Nursing Disposition Last Done: 07/01/24 22:42
DH-Ljqnhs-Yyuwamnqrr Assessment Last Done: 07/01/24 19:52
ED-Male Genitourinary Assessment Last Done: 07/01/24 19:52
Discharge Date and Time
Discharge Date/Time: 07/01/24 22:43
Print Language: BAHAMIAN
[2024-07-01 17:51] VITALS: BP 159/102
[2024-07-01 21:56] VITALS: BP 142/88
[2024-07-01 22:06] LABS: Urine Albumin Negative (Neg - Trace); Urine Bilirubin Negative (Negative); Urine Character Clear (Clear); Urine Color Yellow; Urine Glucose Negative (Negative); Urine Ketone Negative (Negative); Urine Leukocyte 2+ (Negative); Urine Nitrite Positive (Negative); Urine Occult Blood Trace (Negative); Urine Specific Gravity 1.015 (<1.030); Urine Urobilinogen Negative (Neg - 1+)
[2024-07-01 22:20] LABS: Urine Red Blood Cell 0-2 /HPF (0-2)
[2024-07-01 22:21] LABS: Urine Bacteria Moderate (Negative); Urine White Cell 80-90 /HPF (0-5)
[2024-07-01] MEDS: MONUROL 3 GM PO (22:32)
== END 2024-07-01 22:43 | disposition home or self-care (01) ==
LOC: EMR 15:42
PROVIDERS: Emergency Medicine; EMERGENCY PHYSICIAN Emergency Medicine; FAMILY PHYSICIAN Family Medicine
DX: N39.0 Urinary tract infection, site not specified (principal); N31.9 Neuromuscular dysfunction of bladder, unspecified; E78.00 Pure hypercholesterolemia, unspecified; F41.9 Anxiety disorder, unspecified; G47.30 Sleep apnea, unspecified; I10 Essential (primary) hypertension; K21.9 Gastro-esophageal reflux disease without esophagitis; N20.0 Calculus of kidney; Z82.49 Family history of ischemic heart disease and other diseases of the circulatory system; Z87.440 Personal history of urinary (tract) infections; Z90.79 Acquired absence of other genital organ(s)
CPT/HCPCS: 99284; 70450; 74176; 80053; 81003; 81015; 85025; 87086; 87147; 87186; 93005

== ENCOUNTER → 2024-11-23 10:44 | Outpatient (REF) | payer MEDICARE, OTHER, SELFPAY | LOC: RAD 10:44 | PROVIDERS: ATTENDING PHYSICIAN Internal Medicine Gastroenterology; FAMILY PHYSICIAN Student in an Organized Health Care Education/Training Program | DX: R13.19 Other dysphagia (principal) | CPT/HCPCS: 74221 ==

== ENCOUNTER → 2024-11-26 17:06 | Outpatient (REF) | payer MEDICARE, OTHER, SELFPAY | LOC: RAD 17:06 | PROVIDERS: ATTENDING PHYSICIAN Student in an Organized Health Care Education/Training Program | DX: R10.84 Generalized abdominal pain (principal) | CPT/HCPCS: 74019 ==

== ENCOUNTER → 2024-12-24 09:20 | Outpatient (REF) | payer MEDICARE, OTHER, SELFPAY | LOC: RAD 09:20 | PROVIDERS: FAMILY PHYSICIAN Student in an Organized Health Care Education/Training Program | DX: J42 Unspecified chronic bronchitis (principal); I10 Essential (primary) hypertension; R04.2 Hemoptysis | CPT/HCPCS: 71275; Q9967 ==

== ENCOUNTER → 2025-01-10 08:13 | Outpatient (REF) | payer MEDICARE, OTHER, SELFPAY | LOC: RAD 08:13 | PROVIDERS: ATTENDING PHYSICIAN Student in an Organized Health Care Education/Training Program | DX: R50.9 Fever, unspecified (principal) | CPT/HCPCS: 71046 ==

== ENCOUNTER 2025-01-18 16:50 | Emergency (ER) | payer MEDICARE, OTHER, SELFPAY ==
[2025-01-18 16:54] VITALS: BP 163/106
[2025-01-18 17:07] LABS: % Basophils 0.8 % (0-2); % Eosinophils 2.7 % (0-6); % Immature Granulocytes 0.1 % (0-0.5); % Lymphocytes 42.7 % (20.5-51.1); % Monocytes 7.1 % (1.7-9.3); % Neutrophils 46.6 % (42.2-75.2); Absolute Basophils 0.1 10^3/uL (0-0.2); Absolute Eosinophils 0.2 10^3/uL (0-0.7); Absolute Lymphocytes 3.1 10^3/uL (1.2-3.4); Absolute Monocytes 0.5 10^3/uL (0.1-0.6); Absolute Neutrophils 3.3 10^3/uL (1.4-6.5); Hematocrit 43.6 % (39.0-52.0); Hemoglobin 15.3 g/dL (13.0-18.0); Mean Corp Hgb Conc. 35.1 g/dL (33.0-37.0); Mean Corpuscular Hgb 31.3 pg (27.0-31.0); Mean Corpuscular Volume 89.2 fL (80.0-94.0); Mean Platelet Volume 9.5 fL (7.4-10.4); Nucleated Red Blood Cells % 0 % (-); Platelet Count 300 10^3/uL (130-400); Red Blood Cell Count 4.89 10^6/uL (4.70-6.10); Red Cell Dist. Width 12.9 % (11.5-14.5); White Blood Cell Count 7.1 10^3/uL (4.8-10.8)
[2025-01-18 17:28] LABS: ALT (SGPT) 44 U/L (0-50); AST (SGOT) 24 U/L (17-59); Albumin 4.9 g/dl (3.5-5.0); Alkaline Phosphatase 54 U/L (38-126); Blood Urea Nitrogen 13 mg/dl (9-20); Carbon Dioxide 26 mmol/L (22-30); Chloride 102 mmol/L (98-107); Glucose 119 mg/dl (70-99); Potassium 4.4 mmol/L (3.5-5.1); Sodium 139 mmol/L (135-145); Total Bilirubin 1.1 mg/dl (0.2-1.3); Total Protein 7.9 g/dl (6.3-8.2); eGFR > 60.00
[2025-01-18 18:48] VITALS: BMI 28.7
[2025-01-18 18:55] VITALS: BP 158/95
[2025-01-18 19:00] VITALS: BP 190/109
[2025-01-18 20:00] VITALS: BP 142/95
[2025-01-18 20:05] LABS: Urine Albumin Negative (Neg - Trace); Urine Bilirubin Negative (Negative); Urine Character Clear (Clear); Urine Color Yellow; Urine Glucose Negative (Negative); Urine Ketone Negative (Negative); Urine Leukocyte 3+ (Negative); Urine Nitrite Negative (Negative); Urine Occult Blood Negative (Negative); Urine Specific Gravity 1.015 (<1.030); Urine Urobilinogen Negative (Neg - 1+)
[2025-01-18 20:18] LABS: Urine Bacteria Moderate (Negative); Urine Red Blood Cell 0-2 /HPF (0-2); Urine White Cell 30-40 /HPF (0-5)
[2025-01-18 21:00] VITALS: BP 155/108
--- NOTE | 2025-01-18 22:39 | ED.GENMED ---
History of Present Illness
General
Chief Complaint: Flank Pain
Source: patient
Exam Limitations: none
Time Seen by Provider: 01/18/25 18:55
Nursing documentation reviewed up to this point in time: agreed with
History of Present Illness
History of Present Illness:
Patient to ED with complaint of left flank pain. He has a suprapubic tube and reports he is frequently treated for UTI's. He had fever and flank pain last week. He was placed on fosfamycin 3g every 3 days x 3 doses. Last dose was friday. COmes
to ED [facility] because flank pain is still present. States he follows with urology at [facility] and was advised to come to ED for further eval as his provider was not sure what antibiotic to order due to his many allergies. He denies any fever/chills
since last week. No n/v/d. Flank pain is unchangeed from prior. Brought self to ED for eval.
Past History
Past History
ED Past Medical History: GERD, HTN, Hypercholesterolemia, Psychiatric (Anxiety and Depression Panic disorder) and Other (sarcoidosis-in remission per pt 04/2017, 'aneurisms of carotids', concussion Sep 2016, migraines, Vertigo, Herniated disc, Sleep
apnea, Hiatal hernia, UTI, )
ED Past Surgical History: Orthopedic (ACL left knee repair, Jaw implants Laminectomy) and Urological (TURP, atonic bladder, suprapubic tube)
Patient has exhibited threatening behavior?: No
Social History
Tobacco: Non-smoker
Alcohol: None
Drug: None
Personal: Partner
Living: with roommate
Employment: Disabled
Family History
Family History: CAD and Other
Review of Systems
Review of Systems
Allergies reviewed?: Yes
All Other Systems: ROS reviewed and negative except as documented in HPI and ROS
Constitutional: Reports no symptoms
EENT: Reports no symptoms
Respiratory: Reports no symptoms
Cardiac: Reports no symptoms
ABD/GI: Reports no symptoms
: Reports flank pain (left flank pain)
Musculoskeletal: Reports no symptoms
Skin: Reports no symptoms
Neurological: Reports no symptoms
Psychiatric: Reports no symptoms
Phy Exam
General Physical Exam
General Presentation: well appearing and no apparent distress
General age: appears stated age
General Skin: warm and dry
General Habitus: normal
General Mental: alert
Gastrointestinal Exam
Gastrointestinal Exam: normal bowel sounds, non tender, soft, no organomegaly and no cva tenderness
Genitourinary Exam Male
Exam Male: other (Suprapubic tube intact, draining clear yellow urine,)
Musculoskeletal Exam
Musculoskeletal Exam: full ROM and neuro vasc intact
Skin Exam
Skin Exam: normal color, warm/dry and no rash
Psychiatric Exam
Psychiatric Exam: normal mood/affect
Course
Orders/Labs/Results
Orders:
Orders
01/18/25 17:00
Complete Blood Count/With Diff Urgent
Comprehensive Metabolic Panel Urgent
01/18/25 19:04
CT Abd/pel Without Iv Or Oral Urgent
Comment:
Reason For Exam: left flank pain
01/18/25 19:53
Urinalysis Reflex To Culture Urgent
Date Specimen was Collected: 01/18/25
Time Specimen was Collected: 19:02
Urine Microscopic Reflex Cult Urgent
Urine Culture Urgent
LEXY Source: U
Specimen Description:
Date Specimen was Collected: 01/18/25
Time Specimen was Collected: 19:02
Abnormal Lab Results
01/18/25 01/18/25
17:00 19:53
MCH 31.3 H pg
(27.0-31.0)
Glucose 119 H mg/dl
(70-99)
Leukocyte Esterase Rfl 3+ A
(Negative)
Urine WBC (Reflex) 30-40 A /HPF
(0-5)
Urine Bacteria (Reflex) Moderate A
(Negative)
01/18/25 17:00
01/18/25 17:00
Vital Signs
Initial and Last Documented VS:
Initial Vital Signs
Temp Pulse Resp BP Pulse Ox
97.1 F 71 16 163/106 100
01/18/25 16:54 01/18/25 16:54 01/18/25 16:54 01/18/25 16:54 01/18/25 16:54
Last Documented Vital Signs
Temp Pulse Resp BP Pulse Ox
97.1 F 64 16 155/108 97
01/18/25 16:54 01/18/25 20:59 01/18/25 20:59 01/18/25 21:00 01/18/25 20:59
*Radiology
Radiology exam reviewed: radiology read reviewed
*Pulse Oximetry
Patient hypoxic: no
*Critical Care Note
Total Time (30-74mins, 75-104mins- exclusive of procedures): Not Applicable
Update Note
Update Note:
Patient to ED with complaint of left flank pain for the past week. He just completed a course of fosfomycin without relief. He remains afebrile. No n/v/d. UA reviewed. Elevated WBC's noted. No RBC''s, No nitrates. Will hold off on further
antibiotics pending culture results. May be related to chronic catheter. Her remains nontoxic appearing, in no distress. He has a followup with his urologist this week. Given instructions on s/s tor eturn to ED and he is agreeable to plan.
ED Attending Note
-
Portions of this chart may have been created with voice recognition software.� Occasional wrong word or��sound alike� substitutions may have occurred due to the inherent limitations of voice recognition software.
Discharge Plan
Departure
Patient Disposition: Home (Routine Discharge)
Date of Disposition: 01/18/25
Time of Disposition: 21:53
Patient with high blood pressure during this ER visit?: No
Condition: Good
Covid-19: Not Applicable
Discharge Problem:
Flank pain
Instructions: Flank Pain (DC)
Prescriptions:
No Action
valacyclovir [Valtrex] 500 MG tablet
500 mg PO DAILY
lorazepam 1 MG tablet
1 mg PO BID PRN (Reason: ANXIETY)
Patient Comments:
11/18/2023: LAST FILLED 10/06/23, 60 TABS FOR 30 DAYS FROM [facility]#[id number]
famotidine 20 MG tablet
20 mg PO BID
nebivolol 2.5 MG tablet
1.25 mg PO HS
albuterol sulfate 90 mcg/actuation HFA aerosol inhaler
2 puff INHALATION R Q4 PRN (Reason: SOB/WHEEZING)
cyclosporine 0.05 % dropperette
1 drp BOTH EYES HS
metoclopramide HCl [Reglan] 10 mg tablet
10 mg PO Q8HPRN PRN (Reason: Migraine headache) Qty: 30 0RF
fosfomycin tromethamine 3 gram packet
3 g PO Q3D Qty: 2 0RF
fosfomycin tromethamine 3 gram packet
3 g PO ONCE Qty: 2 0RF
Rx Instructions:
Take dose on Friday and Friday
Referrals:
SOLE VILLA, [Family Provider] -
Activity Restrictions/Additional Instructions:
FOllow up with your urologist as scheduled. Return to the emergency department immediately for fever/chills, increasing pain, vomiting, or for any further concerns.
Interventions
Interventions:
*Risk Screen - Suicide Last Done: 01/18/25 16:54
*General Assessment Last Done: 01/18/25 18:48
*Neglect/Abuse Screening Last Done: 01/18/25 16:54
*ED- Fall Risk Assessment Last Done: 01/18/25 18:48
*ED COVID-19 Vaccine History Last Done: 01/18/25 18:48
*Nursing Disposition Last Done: 01/18/25 22:03
YH-Xbnbau-Mkekpeetwr Assessment Last Done: 01/18/25 19:29
ED-Male Genitourinary Assessment Last Done: 01/18/25 19:29
Discharge Date and Time
Discharge Date/Time: 01/18/25 22:03
Print Language: NORTHERN IRISH
== END 2025-01-18 22:03 | disposition home or self-care (01) ==
LOC: EMR 16:50
PROVIDERS: Nurse Practitioner; EMERGENCY PHYSICIAN Emergency Medicine; FAMILY PHYSICIAN Student in an Organized Health Care Education/Training Program
DX: R10.9 Unspecified abdominal pain (principal); K21.9 Gastro-esophageal reflux disease without esophagitis; I10 Essential (primary) hypertension; E78.00 Pure hypercholesterolemia, unspecified; N40.0 Benign prostatic hyperplasia without lower urinary tract symptoms; N31.9 Neuromuscular dysfunction of bladder, unspecified; F41.9 Anxiety disorder, unspecified; F32.A Depression, unspecified; F41.0 Panic disorder [episodic paroxysmal anxiety]; D86.9 Sarcoidosis, unspecified; R01.1 Cardiac murmur, unspecified; G43.909 Migraine, unspecified, not intractable, without status migrainosus; G47.30 Sleep apnea, unspecified; K44.9 Diaphragmatic hernia without obstruction or gangrene; Z87.440 Personal history of urinary (tract) infections; Z87.442 Personal history of urinary calculi; Z87.820 Personal history of traumatic brain injury; Z86.16 Personal history of COVID-19; Z88.1 Allergy status to other antibiotic agents; Z88.5 Allergy status to narcotic agent; Z88.2 Allergy status to sulfonamides; Z88.8 Allergy status to other drugs, medicaments and biological substances
CPT/HCPCS: 99284; 74176; 80053; 81003; 81015; 85025; 87086

== ENCOUNTER 2025-03-14 18:59 | Emergency (ER) | payer MEDICARE, OTHER, SELFPAY ==
[2025-03-14 19:04] VITALS: BP 161/111
[2025-03-14 19:20] LABS: % Basophils 0.6 % (0-2); % Eosinophils 3.5 % (0-6); % Immature Granulocytes 0.1 % (0-0.5); % Lymphocytes 40.5 % (20.5-51.1); % Monocytes 7.2 % (1.7-9.3); % Neutrophils 48.1 % (42.2-75.2); Absolute Basophils 0.1 10^3/uL (0-0.2); Absolute Eosinophils 0.3 10^3/uL (0-0.7); Absolute Lymphocytes 3.2 10^3/uL (1.2-3.4); Absolute Monocytes 0.6 10^3/uL (0.1-0.6); Absolute Neutrophils 3.7 10^3/uL (1.4-6.5); Hematocrit 45.4 % (39.0-52.0); Hemoglobin 16.3 g/dL (13.0-18.0); Mean Corp Hgb Conc. 35.9 g/dL (33.0-37.0); Mean Corpuscular Hgb 30.7 pg (27.0-31.0); Mean Corpuscular Volume 85.5 fL (80.0-94.0); Mean Platelet Volume 9.2 fL (7.4-10.4); Nucleated Red Blood Cells % 0 % (-); Platelet Count 245 10^3/uL (130-400); Red Blood Cell Count 5.31 10^6/uL (4.70-6.10); Red Cell Dist. Width 12.5 % (11.5-14.5); White Blood Cell Count 7.8 10^3/uL (4.8-10.8)
[2025-03-14 19:42] LABS: ALT (SGPT) 42 U/L (0-50); AST (SGOT) 27 U/L (17-59); Albumin 4.6 g/dl (3.5-5.0); Alkaline Phosphatase 41 U/L (38-126); Blood Urea Nitrogen 15 mg/dl (9-20); Calcium 10.2 mg/dl (8.4-10.2); Carbon Dioxide 23 mmol/L (22-30); Chloride 104 mmol/L (98-107); Glucose 120 mg/dl (70-99); Potassium 4.2 mmol/L (3.5-5.1); Sodium 139 mmol/L (135-145); Total Bilirubin 1.2 mg/dl (0.2-1.3); Total Protein 7.7 g/dl (6.3-8.2); eGFR > 60.00
[2025-03-14 19:48] LABS: Troponin I < 0.012 ng/ml
--- NOTE | 2025-03-14 21:56 | ED.GENMED ---
History of Present Illness
General
Chief Complaint: Chest Pain
Source: patient
Exam Limitations: none
Time Seen by Provider: 03/14/25 21:56
Nursing documentation reviewed up to this point in time: agreed with
History of Present Illness
History of Present Illness:
59-year-old male presents emergency department due to chest pain in his left armpit that began at about 6 PM. He was sitting on the couch when the pain began. It hurts when he moves his left arm.
Past History
Past History
ED Past Medical History: GERD, HTN, Hypercholesterolemia, Psychiatric (Anxiety and Depression Panic disorder) and Other (sarcoidosis-in remission per pt 04/2017, 'aneurisms of carotids', concussion Sep 2016, migraines, Vertigo, Herniated disc, Sleep
apnea, Hiatal hernia, UTI, )
ED Past Surgical History: Orthopedic (ACL left knee repair, Jaw implants Laminectomy) and Urological (TURP, atonic bladder, suprapubic tube)
Patient has exhibited threatening behavior?: No
Social History
Tobacco: Non-smoker
Alcohol: None
Drug: None
Personal: Partner
Living: with roommate
Employment: Disabled
Family History
Family History: CAD and Other
Review of Systems
Review of Systems
Allergies reviewed?: Yes
All Other Systems: Not applicable
Constitutional: Reports no symptoms
EENT: Reports no symptoms
Respiratory: Reports no symptoms
Cardiac: Reports chest pain
ABD/GI: Reports no symptoms
: Reports no symptoms
Musculoskeletal: Reports no symptoms
Skin: Reports no symptoms
Neurological: Reports no symptoms
Endocrine: Reports no symptoms
Hematologic/Lymphatic: Reports no symptoms
Psychiatric: Reports no symptoms
Phy Exam
Physical Exam
Physical Exam:
Physical Exam
General: no apparent distress, not acutely ill
Neck: supple. no meningeal signs. normal posterior pharynx
Heart: s1/s2 regular rate and rhythm, no murmur. equal radial
pulses.
HEENT: Pupils equal round reactive to light, EOMI
Lungs: no acute respiratory distress. clear bilaterally, left chest wall tender to palpation reproducing pain
Abdomen: normal bowel sounds. not tender. no CVAT, suprapubic catheter
Neuro: alert and oriented. no focal neurological deficits cranial nerves II through XII intact
Skin: no rash
Psychiatric: well kept. interactive and cooperative
Extremities: no edema. no calf tenderness. negative homans. good distal pulses
Scores
Heart Score for Chest Pain Patients
STEMI patient?: No
History: Slightly or Non-Suspicious
ECG: Normal
Age: >45 - <65 years
Risk Factors: 1 or 2 Risk Factors
Troponin: </= Normal Limit
Heart Score for Chest Pain Patients: 2
Heart Score Risk: 2.5% MACE over next 6 weeks
Course
Orders/Labs/Results
Orders:
Orders
03/14/25 19:01
Electrocardiogram (*1) Urgent
Reason for Study: Chest Pain
EKG- Treatment ONCE
03/14/25 19:14
Complete Blood Count/With Diff Urgent
Comprehensive Metabolic Panel Urgent
Troponin I Urgent
03/14/25 22:04
CR Chest - 2 Views Urgent
Comment:
Reason For Exam: left side chest pain
03/14/25 22:08
Troponin I Urgent
Abnormal Lab Results
03/14/25
19:14
Glucose 120 H mg/dl
(70-99)
03/14/25 19:14
03/14/25 19:14
Vital Signs
Initial and Last Documented VS:
Initial Vital Signs
Temp Pulse Resp BP Pulse Ox
97.8 F 83 18 161/111 93
03/14/25 19:04 03/14/25 19:04 03/14/25 19:04 03/14/25 19:04 03/14/25 19:04
Last Documented Vital Signs
Temp Pulse Resp BP Pulse Ox
97.8 F 66 21 136/94 96
03/14/25 19:04 03/14/25 22:45 03/14/25 22:45 03/14/25 22:26 03/14/25 22:45
MDM/Problems Addressed
Differential Diagnosis Includes:
PE, ACS
MDM/Problems Addressed:
59-year-old male with left-sided chest pain, likely musculoskeletal. Do not suspect aortic dissection, PE or ACS. Exam more consistent with left-sided intercostal muscle pain. Serial troponins negative. Stable for discharge. Follow-up with
primary care.
Chronic conditions affecting care: HTN
Acute Exacerbation and/or Progression of Chronic Illness: HTN
*Radiology
Radiology exam reviewed: preliminary read by ED provider (Chest x-ray no acute findings)
*Pulse Oximetry
Patient hypoxic: no
*EKG
Interpreted by ED Provider?: Yes
EKG Intrepretation Date: 03/14/25
EKG Intrepretation Time: 19:02
Interpretation: normal
Comparison EKG: no changes
Heart Rate: 81
Rate: normal
Rhythm: sinus
[place]: normal axis
Interval: normal interval
QRS Pattern: normal QRS
Ischemia: no ischemia
*Research & Analytics Manager Interpretation
Rate: normal
Interpretation: normal
Heart Rate: 80
Rhythm: sinus
*Critical Care Note
Total Time (30-74mins, 75-104mins- exclusive of procedures): Not Applicable
Data Reviewed
Further Testing Considered But Not Given:
CT chest not indicated
Patient Management
Social determinants of health affecting care: Living situation and Strong social support
Escalation/DeEscalation of care consider admission/obs:
Admit not indicated
ED Attending Note
-
Portions of this chart may have been created with voice recognition software.� Occasional wrong word or��sound alike� substitutions may have occurred due to the inherent limitations of voice recognition software.
Discharge Plan
Departure
Patient Disposition: Home (Routine Discharge)
Date of Disposition: 03/14/25
Time of Disposition: 22:59
Patient with high blood pressure during this ER visit?: Yes
Condition: Good
Discharge Problem:
Chest pain
Instructions: Chest Pain That Is Not Caused by the Heart (DC), BLOOD PRESSURE
Prescriptions:
No Action
valacyclovir [Valtrex] 500 MG tablet
500 mg PO DAILY
lorazepam 1 MG tablet
1 mg PO BID PRN (Reason: ANXIETY)
Patient Comments:
11/18/2023: LAST FILLED 10/06/23, 60 TABS FOR [address] [facility]#[id number]
famotidine 20 MG tablet
20 mg PO BID
nebivolol 2.5 MG tablet
1.25 mg PO HS
albuterol sulfate 90 mcg/actuation HFA aerosol inhaler
2 puff INHALATION R Q4 PRN (Reason: SOB/WHEEZING)
cyclosporine 0.05 % dropperette
1 drp BOTH EYES HS
metoclopramide HCl [Reglan] 10 mg tablet
10 mg PO Q8HPRN PRN (Reason: Migraine headache) Qty: 30 0RF
fosfomycin tromethamine 3 gram packet
3 g PO Q3D Qty: 2 0RF
fosfomycin tromethamine 3 gram packet
3 g PO ONCE Qty: 2 0RF
Rx Instructions:
Take dose on Friday and Friday
Referrals:
SOLE VILLA, [Family Provider] - Call in 1-3 days for appt
Interventions
Interventions:
*Risk Screen - Suicide Last Done: 03/14/25 19:07
*General Assessment Last Done: 03/14/25 19:07
*Neglect/Abuse Screening Last Done: 03/14/25 19:07
*ED COVID-19 Vaccine History Last Done: 03/14/25 19:07
ED- Cardiac Assessment Last Done: 03/14/25 22:00
Discharge Date and Time
Print Language: FRISIAN
[2025-03-14 21:59] VITALS: BP 147/105
[2025-03-14 22:26] VITALS: BP 136/94
[2025-03-14 22:42] LABS: Troponin I < 0.012 ng/ml
[2025-03-14 23:00] VITALS: BP 120/84
== END 2025-03-14 23:15 | disposition home or self-care (01) ==
LOC: EMR 18:59
PROVIDERS: Emergency Medicine; EMERGENCY PHYSICIAN Emergency Medicine; FAMILY PHYSICIAN Student in an Organized Health Care Education/Training Program
DX: R07.89 Other chest pain (principal); K21.9 Gastro-esophageal reflux disease without esophagitis; E78.00 Pure hypercholesterolemia, unspecified; G47.30 Sleep apnea, unspecified; I10 Essential (primary) hypertension; Z82.49 Family history of ischemic heart disease and other diseases of the circulatory system; Z87.440 Personal history of urinary (tract) infections; Z90.79 Acquired absence of other genital organ(s); F41.9 Anxiety disorder, unspecified
CPT/HCPCS: 99283; 71046; 80053; 84484; 85025; 93005

== ENCOUNTER 2025-05-02 06:28 | Emergency (ER) | payer MEDICARE, OTHER, SELFPAY ==
[2025-05-02 06:36] VITALS: BP 146/104
--- NOTE | 2025-05-02 07:23 | ED.GENMED ---
History of Present Illness
General
Chief Complaint: Male Genito-Urinary Symptoms
Source: patient
Time Seen by Provider: 05/02/25 07:06
History of Present Illness
History of Present Illness:
The patient presents with atypical right-sided cranial pain following bladder irrigation.
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 He routinely performs gentamicin flushes as
per his urologists instructions. During the procedure last night, he experienced intense bladder spasms followed by a rapid onset of nausea, a warm sensation, and abnormal pain in his cranial region. The patient describes the sensation as feeling as
if 'water was running in his head.' This incident was also associated with severe nausea and dizziness, though no vomiting occurred. He reports mild visual changes and describes the cranial pain as acute and different from his usual migraines.
Symptoms began after the gentamicin flush was completed around 6 PM. The patient denies fever and notes neck pain was not present upon palpation.
Past History
Past History
ED Past Medical History: GERD, HTN, Hypercholesterolemia, Psychiatric (Anxiety and Depression Panic disorder) and Other (sarcoidosis-in remission per pt 04/2017, 'aneurisms of carotids', concussion Sep 2016, migraines, Vertigo, Herniated disc, Sleep
apnea, Hiatal hernia, UTI, )
ED Past Surgical History: Orthopedic (ACL left knee repair, Jaw implants Laminectomy) and Urological (TURP, atonic bladder, suprapubic tube)
Patient has exhibited threatening behavior?: No
Social History
Tobacco: Non-smoker
Alcohol: None
Drug: None
Personal: Partner
Living: with roommate
Employment: Disabled
Family History
Family History: CAD and Other
Phy Exam
Physical Exam
Physical Exam:
General: Well-appearing male no acute respiratory distress
HEENT: Normocephalic pupils equal round reactive to light extract motions are intact no nystagmus
Heart: Regular rate and rhythm
Lungs: Clear no wheeze
Neurologic exam: Alert and oriented no facial asymmetry finger-nose [id number] intact no drift on exam no tenderness to palpation or negative Tinel's over the right temporal artery. No meningeal sign
Extremities: No cyanosis or edema
Course
Orders/Labs/Results
Orders:
Orders
05/02/25 07:23
CT Head W/o Iv Contrast Urgent
Comment:
Reason For Exam: headache
05/02/25 07:42
CRP [C-Reactive Protein] Urgent
Complete Blood Count/With Diff Urgent
Comprehensive Metabolic Panel Urgent
Sed Rate [Erythrocyte Sed Rate] Urgent
Urinalysis Reflex To Culture Urgent
Date Specimen was Collected: 05/02/25
Time Specimen was Collected: 07:25
Urine Microscopic Reflex Cult Urgent
Urine Culture Urgent
LEXY Source: U
Specimen Description:
Date Specimen was Collected: 05/02/25
Time Specimen was Collected: 07:25
Abnormal Lab Results
05/02/25
07:42
Chloride 108 H mmol/L
(98-107)
Glucose 103 H mg/dl
(70-99)
Leukocyte Esterase Rfl 1+ A
(Negative)
05/02/25 07:42
05/02/25 07:42
Vital Signs
Initial and Last Documented VS:
Initial Vital Signs
Temp Pulse Resp BP Pulse Ox
98.2 F 68 20 146/104 98
05/02/25 06:36 05/02/25 06:36 05/02/25 06:36 05/02/25 06:36 05/02/25 06:36
Last Documented Vital Signs
Temp Pulse Resp BP Pulse Ox
98.2 F 68 20 139/91 95
05/02/25 06:36 05/02/25 06:36 05/02/25 06:36 05/02/25 09:00 05/02/25 09:00
MDM/Problems Addressed
Differential Diagnosis Includes:
The Differential Diagnosis includes, in no particular order and is not limited to:
1. Migraine variant
2. Subarachnoid hemorrhage
3. Cervicogenic headache
4. Temporal arteritis
5. Bladder irrigation complication
MDM/Problems Addressed:
Acute Problems:
- Uncharacteristic cranial pain post-bladder irrigation
- Nausea and dizziness
1. Perform a computed tomography (CT) scan of the head to evaluate the atypical cranial pain and ensure no underlying pathology.
2. Conduct blood tests to include inflammatory markers to rule out potential vasculitis or related conditions affecting cranial arteries.
3. Obtain a sample for urinalysis to further assess any complications related to bladder function or infections.
*Critical Care Note
Total Time (30-74mins, 75-104mins- exclusive of procedures): Not Applicable
Update Note
Update Note:
Patient reexamined looks well upon reassessment CT head negative urinalysis normal renal function is normal. Patient could have had an adverse reaction to his gentamicin irrigation versus an atypical migraine but neurologically appears well
declined any medicine for his headache. Stable for discharge with follow-up with urology
ED Attending Note
-
Portions of this chart may have been created with voice recognition software.� Occasional wrong word or��sound alike� substitutions may have occurred due to the inherent limitations of voice recognition software.
Discharge Plan
Departure
Patient Disposition: Home (Routine Discharge)
Date of Disposition: 05/02/25
Time of Disposition: 10:03
Patient with high blood pressure during this ER visit?: No
Discharge Problem:
Headache
Instructions: Headaches in adults
Prescriptions:
No Action
valacyclovir [Valtrex] 500 MG tablet
500 mg PO DAILY
lorazepam 1 MG tablet
1 mg PO BID PRN (Reason: ANXIETY)
Patient Comments:
11/18/2023: LAST FILLED 10/06/23, 60 TABS FOR 30 DAYS FROM [facility]#[id number]
famotidine 20 MG tablet
20 mg PO BID
nebivolol 2.5 MG tablet
1.25 mg PO HS
albuterol sulfate 90 mcg/actuation HFA aerosol inhaler
2 puff INHALATION R Q4 PRN (Reason: SOB/WHEEZING)
cyclosporine 0.05 % dropperette
1 drp BOTH EYES HS
metoclopramide HCl [Reglan] 10 mg tablet
10 mg PO Q8HPRN PRN (Reason: Migraine headache) Qty: 30 0RF
fosfomycin tromethamine 3 gram packet
3 g PO Q3D Qty: 2 0RF
fosfomycin tromethamine 3 gram packet
3 g PO ONCE Qty: 2 0RF
Rx Instructions:
Take dose on Friday and Friday
Referrals:
SOLE [facility]ILLA DO [Family Provider, Family Practice]
Activity Restrictions/Additional Instructions:
Return if worse otherwise follow-up with your doctor
Interventions
Interventions:
*Risk Screen - Suicide Last Done: 05/02/25 06:36
*General Assessment Last Done: 05/02/25 07:17
*Neglect/Abuse Screening Last Done: 05/02/25 06:36
*ED- Fall Risk Assessment Last Done: 05/02/25 07:17
*ED COVID-19 Vaccine History Last Done: 05/02/25 07:44
ED-Male Genitourinary Assessment Last Done: 05/02/25 07:14
Discharge Date and Time
Print Language: IRISH
[2025-05-02 07:42] VITALS: BP 139/93
--- NOTE | 2025-05-02 07:53 | EDRN ---
Pt has some skin irritation from stat lock. Offered leg strap; pt declined. Offered skin prep pads with instructions
[2025-05-02 08:07] LABS: Urine Albumin Negative (Neg - Trace); Urine Bilirubin Negative (Negative); Urine Character Clear (Clear); Urine Color Yellow; Urine Glucose Negative (Negative); Urine Ketone Negative (Negative); Urine Leukocyte 1+ (Negative); Urine Nitrite Negative (Negative); Urine Occult Blood Negative (Negative); Urine Urobilinogen Negative (Neg - 1+)
[2025-05-02 08:26] VITALS: BP 137/90
[2025-05-02 08:26] LABS: ALT (SGPT) 33 U/L (0-50); AST (SGOT) 21 U/L (17-59); Albumin 4.5 g/dl (3.5-5.0); Alkaline Phosphatase 47 U/L (38-126); Blood Urea Nitrogen 17 mg/dl (9-20); Calcium 9.7 mg/dl (8.4-10.2); Carbon Dioxide 24 mmol/L (22-30); Chloride 108 mmol/L (98-107); Glucose 103 mg/dl (70-99); Potassium 4.6 mmol/L (3.5-5.1); Sodium 142 mmol/L (135-145); Total Bilirubin 0.7 mg/dl (0.2-1.3); Total Protein 7.6 g/dl (6.3-8.2); eGFR > 60.00
[2025-05-02 08:28] LABS: Urine Squamous Cell 0-2 /LPF (Few)
[2025-05-02 08:29] LABS: Urine Amorphous Seen
[2025-05-02 08:30] LABS: Urine Red Blood Cell 0-2 /HPF (0-2)
[2025-05-02 09:00] VITALS: BP 139/91
[2025-05-02 09:02] LABS: C-Reactive Protein < 5.00 mg/L (0.0-10.00)
[2025-05-02 09:51] LABS: % Basophils 0.8 % (0-2); % Eosinophils 4.4 % (0-6); % Immature Granulocytes 0.2 % (0-0.5); % Lymphocytes 35.1 % (20.5-51.1); % Monocytes 6.5 % (1.7-9.3); Absolute Eosinophils 0.2 10^3/uL (0-0.7); Absolute Lymphocytes 1.8 10^3/uL (1.2-3.4); Absolute Monocytes 0.3 10^3/uL (0.1-0.6); Absolute Neutrophils 2.8 10^3/uL (1.4-6.5); Hematocrit 45.3 % (39.0-52.0); Hemoglobin 16.2 g/dL (13.0-18.0); Mean Corp Hgb Conc. 35.8 g/dL (33.0-37.0); Mean Corpuscular Hgb 30.6 pg (27.0-31.0); Mean Corpuscular Volume 85.6 fL (80.0-94.0); Mean Platelet Volume 10.2 fL (7.4-10.4); Nucleated Red Blood Cells % 0 % (-); Platelet Count 215 10^3/uL (130-400); Red Blood Cell Count 5.29 10^6/uL (4.70-6.10); Red Cell Dist. Width 12.5 % (11.5-14.5); White Blood Cell Count 5.2 10^3/uL (4.8-10.8)
[2025-05-02 09:57] LABS: Erythrocyte Sed Rate 7 mm/hour (0-20)
== END 2025-05-02 10:12 | disposition home or self-care (01) ==
LOC: EMR 06:28
PROVIDERS: Physician Assistant; EMERGENCY PHYSICIAN Emergency Medicine; FAMILY PHYSICIAN Student in an Organized Health Care Education/Training Program
DX: R51.9 Headache, unspecified (principal); E78.00 Pure hypercholesterolemia, unspecified; G47.30 Sleep apnea, unspecified; I10 Essential (primary) hypertension; Z90.79 Acquired absence of other genital organ(s); Z93.59 Other cystostomy status; Z87.440 Personal history of urinary (tract) infections
CPT/HCPCS: 99284; 70450; 80053; 81003; 81015; 85025; 85652; 86140; 87086

== ENCOUNTER 2025-06-15 05:36 | Emergency (ER) | payer MEDICARE, OTHER, SELFPAY ==
[2025-06-15] VITALS (8 sets, daily range): BP systolic 139–174; BP diastolic 88–104; BMI 28.8
[2025-06-15 05:54] LABS: Hematocrit 44.8 % (39.0-52.0); Hemoglobin 15.6 g/dL (13.0-18.0); Mean Corp Hgb Conc. 34.8 g/dL (33.0-37.0); Mean Corpuscular Volume 88.9 fL (80.0-94.0); Nucleated Red Blood Cells % 0 % (-); Platelet Count 222 10^3/uL (130-400); Red Cell Dist. Width 12.6 % (11.5-14.5)
[2025-06-15 06:17] LABS: ALT (SGPT) 33 U/L (0-50); AST (SGOT) 19 U/L (17-59); Albumin 4.4 g/dl (3.5-5.0); Alkaline Phosphatase 51 U/L (38-126); Blood Urea Nitrogen 19 mg/dl (9-20); Calcium 9.3 mg/dl (8.4-10.2); Carbon Dioxide 25 mmol/L (22-30); Chloride 107 mmol/L (98-107); Glucose 106 mg/dl (70-99); Potassium 4.4 mmol/L (3.5-5.1); Sodium 139 mmol/L (135-145); Total Protein 7.3 g/dl (6.3-8.2); eGFR > 60.00
[2025-06-15 06:28] LABS: Troponin I < 0.012 ng/ml
--- NOTE | 2025-06-15 08:09 | ED.GENMED ---
History of Present Illness
General
Chief Complaint: Chest Pain
Time Seen by Provider: 06/15/25 08:09
History of Present Illness
History of Present Illness:
PAST MEDICAL HISTORY AND REVIEW OF OLD RECORDS
- The patient has a history of migraines, sarcoidosis, high blood pressure, hyperlipidemia, GERD, anxiety/depression. I reviewed records, the patient was seen here in February also with chest pain which was felt to be musculoskeletal in nature.
Note:
CHIEF COMPLAINT(S)
Chest discomfort and fluctuating blood pressure.
HISTORY OF PRESENT ILLNESS
The patient is a 59-year-old male presenting with episodes of chest discomfort and fluctuating blood pressure. The chest discomfort reportedly began on Friday or Friday and occurs intermittently rather than constantly. The patient mentioned
experiencing the discomfort upon waking at approximately 5 a.m. today, describing it as a pressure-like sensation. He does not report experiencing it daily.
The patient has a known heart murmur, and he experiences 'extra beats,' though he is uncertain of the specific diagnosis. Follow-up with his remedial project manager, Dr. Delcid, occurred a couple of months ago, during which a monitor was employed to observe his
condition due to ongoing issues with his blood pressure. The patient is currently on Nebivolol for blood pressure management, which he takes at night. However, he has observed significant fluctuations in his blood pressure, ranging from high to as
low as 101/68 mmHg, and describes feeling unwell during these fluctuations. He consulted his primary care provider due to these concerns, who advised hospital evaluation and recommended increased vigilance regarding his condition.
The patient plans to follow up with his remedial project manager, Dr. Delcid, tomorrow. He expressed concerns about increasing Nebivolol due to its association with bradycardia. He inquired about alternative blood pressure medications such as Losartan, which
might not affect heart rate. Additionally, he experiences markedly different blood pressure readings between his right and left arms.
CHRONIC MEDICAL CONDITIONS SIGNIFICANTLY AFFECTING CARE
- Known heart murmur.
- Blood pressure instability managed with Nebivolol.
MEDICATIONS
- Nebivolol for blood pressure management.
PHYSICAL EXAM
General: Alert, no acute distress.
Skin: Warm, dry.
Head: Normocephalic, atraumatic.
Neck: Supple, trachea midline.
Eyes, Ears, Nose, Mouth and Throat: Oral mucosa moist.
Cardiovascular: Normal peripheral perfusion, No edema.
Respiratory: Respirations are non-labored.
Gastrointestinal: Abdomen nondistended.
Back: Normal range of motion, Normal alignment.
Musculoskeletal: Normal range of motion, normal strength.
Neurological: Alert and oriented to person, place, time, and situation, No focal neurological deficit observed.
Psychiatric: Cooperative, appropriate mood & affect.
PLAN
- A repeat cardiac biomarker test is planned to reassess cardiac status.
- Monitoring and possible adjustment of blood pressure medication, with consideration of alternatives such as Losartan.
- Follow-up with cardiology scheduled for tomorrow to further evaluate blood pressure fluctuations and medication efficacy.
DIFFERENTIAL DIAGNOSIS
The Differential Diagnosis includes, in no particular order and is not limited to:
- Acute Coronary Syndrome
- Aortic Dissection
- Cardiac Arrhythmia
- Pulmonary Embolism
- Gastroesophageal Reflux Disease
- Hypertensive Crisis
- Panic Disorder
- Costochondritis
- Pericarditis
- Myocarditis
Disposition:
SUMMARY OF ENCOUNTER
The patient presented to the emergency department with intermittent chest discomfort and fluctuating blood pressure. Cardiac blood work was repeated and returned normal results, indicating no immediate need for hospital admission. Blood pressure
readings were taken in both arms and found to be comparable, with the most recent reading at 139/88 mmHg. No changes to the patients current blood pressure medication, Nebivolol, were recommended during this visit. The patient will follow up with
remedial project manager Dr. Delcid tomorrow for further evaluation.
DISPOSITION
Discharge
PLAN
The patient is instructed to follow up with their remedial project manager, Dr. Delcid, tomorrow for further evaluation of blood pressure fluctuations and related symptoms.
FOLLOW-UP INSTRUCTIONS
The patient is advised to review their emergency department visit and findings with Dr. Delcid at the scheduled appointment tomorrow.
MEDICAL DECISION MAKING
- Number and Complexity of Problems Addressed: Chronic conditions affecting care include known heart murmur and blood pressure instability managed with Nebivolol. Differential Diagnosis includes Acute Coronary Syndrome, Aortic Dissection, Cardiac
Arrhythmia, Pulmonary Embolism, Gastroesophageal Reflux Disease, Hypertensive Crisis, Panic Disorder, Costochondritis, Pericarditis, Myocarditis.
- Data:
Category 1
Repeat cardiac biomarker test was reviewed, which returned normal results.
- Risk:
Consideration of Admission/Observation: Escalation of care including admission/observation was considered given the complexity and risk of the patients presenting complaint, exam findings, and underlying comorbidities. However, ultimately I feel the
patient is safe for outpatient management with close follow-up. Reasoning: Work-up reassuring, does not reveal any acute life/organ-threatening processes, patients symptoms well controlled upon reevaluation, reexamination is reassuring, vitals are
stable, patient agreeable with discharge, reliable for follow-up.
DIAGNOSIS
Chest Discomfort, unspecified (R07.89)
Essential (primary) hypertension (I10)
EKG
- Sinus 60, left axis deviation, no acute ST abnormality, no change from 03/14/2025
LABS
- CBC normal, chemistries and troponin unremarkable
Past History
Past History
ED Past Medical History: GERD, HTN, Hypercholesterolemia, Psychiatric (Anxiety and Depression Panic disorder) and Other (sarcoidosis-in remission per pt 04/2017, 'aneurisms of carotids', concussion Sep 2016, migraines, Vertigo, Herniated disc, Sleep
apnea, Hiatal hernia, UTI, )
ED Past Surgical History: Orthopedic (ACL left knee repair, Jaw implants Laminectomy) and Urological (TURP, atonic bladder, suprapubic tube)
Patient has exhibited threatening behavior?: No
Social History
Tobacco: Non-smoker
Alcohol: None
Drug: None
Personal: Partner
Living: with roommate
Employment: Disabled
Family History
Family History: CAD and Other
Phy Exam
Physical Exam
Physical Exam:
See HPI
Scores
Heart Score for Chest Pain Patients
STEMI patient?: Not applicable
Course
Orders/Labs/Results
Orders:
Orders
06/15/25 05:36
Electrocardiogram (*1) Urgent
Reason for Study: Chest Pain
06/15/25 05:37
EKG- Treatment ONCE
06/15/25 05:45
Complete Blood Count/With Diff Urgent
Comprehensive Metabolic Panel Urgent
Troponin I Urgent
06/15/25 08:55
Electrocardiogram (*1) Urgent
Reason for Study: Chest Pain
06/15/25 08:56
EKG- Treatment ONCE
06/15/25 09:09
Troponin I Urgent
Abnormal Lab Results
06/15/25
05:45
Glucose 106 H mg/dl
(70-99)
06/15/25 05:45
06/15/25 05:45
Vital Signs
Initial and Last Documented VS:
Initial Vital Signs
Temp Pulse Resp BP Pulse Ox
36.6 C 64 16 145/101 96
06/15/25 05:39 06/15/25 05:39 06/15/25 05:39 06/15/25 05:39 06/15/25 05:39
Last Documented Vital Signs
Temp Pulse Resp BP Pulse Ox
36.6 C 58 26 174/103 98
06/15/25 05:39 06/15/25 09:02 06/15/25 09:02 06/15/25 09:04 06/15/25 09:02
*Pulse Oximetry
SaO2: 96
Oxygen Mode of Delivery: Room air
Patient hypoxic: no
*Critical Care Note
Total Time (30-74mins, 75-104mins- exclusive of procedures): Not Applicable
ED Attending Note
-
Portions of this chart may have been created with voice recognition software.� Occasional wrong word or��sound alike� substitutions may have occurred due to the inherent limitations of voice recognition software.
Discharge Plan
Departure
Patient Disposition: Home (Routine Discharge)
Date of Disposition: 06/15/25
Time of Disposition: 10:13
Patient with high blood pressure during this ER visit?: Yes
Discharge Problem:
Chest pain
Instructions: Chest Pain DCA Follow Up, BLOOD PRESSURE
Prescriptions:
No Action
valacyclovir [Valtrex] 500 MG tablet
500 mg PO DAILY
lorazepam 1 MG tablet
1 mg PO BID PRN (Reason: ANXIETY)
Patient Comments:
11/18/2023: LAST FILLED 10/06/23, 60 TABS FOR [address] [facility]#[id number]
famotidine 20 MG tablet
20 mg PO BID
nebivolol 2.5 MG tablet
1.25 mg PO HS
albuterol sulfate 90 mcg/actuation HFA aerosol inhaler
2 puff INHALATION R Q4 PRN (Reason: SOB/WHEEZING)
cyclosporine 0.05 % dropperette
1 drp BOTH EYES HS
metoclopramide HCl [Reglan] 10 mg tablet
10 mg PO Q8HPRN PRN (Reason: Migraine headache) Qty: 30 0RF
fosfomycin tromethamine 3 gram packet
3 g PO Q3D Qty: 2 0RF
fosfomycin tromethamine 3 gram packet
3 g PO ONCE Qty: 2 0RF
Rx Instructions:
Take dose on Friday and Friday
Referrals:
UNKNOWN - PT DOES,NOT KNOW [Family Provider]
Activity Restrictions/Additional Instructions:
Your EKG appears normal. 2 sets of cardiac blood work (troponins) shows no sign of heart attack. I recommend that you follow-up with Dr. Delcid tomorrow. Return here if worse or other concerns. Your repeat blood pressure prior to discharge showed
a systolic of about 138�you could talk to Dr. Delcid if you wants to make any blood pressure medication changes. Your heart rate here has been in the 58-62 range.
Interventions
Interventions:
*Risk Screen - Suicide Last Done: 06/15/25 05:39
*General Assessment Last Done: 06/15/25 05:39
*Neglect/Abuse Screening Last Done: 06/15/25 05:39
*ED- Fall Risk Assessment Last Done: 06/15/25 05:39
*ED COVID-19 Vaccine History Last Done: 06/15/25 05:39
ED- Cardiac Assessment Last Done: 06/15/25 08:36
Discharge Date and Time
Print Language: FAROESE
[2025-06-15 09:58] LABS: Troponin I < 0.012 ng/ml
== END 2025-06-15 10:54 | disposition home or self-care (01) ==
LOC: EMR 05:36
PROVIDERS: Emergency Medicine; EMERGENCY PHYSICIAN Emergency Medicine
DX: R07.89 Other chest pain (principal); D86.9 Sarcoidosis, unspecified; K21.9 Gastro-esophageal reflux disease without esophagitis; E78.00 Pure hypercholesterolemia, unspecified; G47.30 Sleep apnea, unspecified; I10 Essential (primary) hypertension; F41.0 Panic disorder [episodic paroxysmal anxiety]; F41.8 Other specified anxiety disorders; Z82.49 Family history of ischemic heart disease and other diseases of the circulatory system; Z87.440 Personal history of urinary (tract) infections; Z90.79 Acquired absence of other genital organ(s)
CPT/HCPCS: 99283; 80053; 84484; 85025; 93005

== ENCOUNTER 2025-07-16 18:42 | Emergency (ER) | payer MEDICARE, OTHER, SELFPAY ==
[2025-07-16 18:47] VITALS: BP 164/111
[2025-07-16 19:15] LABS: Hematocrit 41.9 % (39.0-52.0); Hemoglobin 15.1 g/dL (13.0-18.0); Mean Corp Hgb Conc. 36.0 g/dL (33.0-37.0); Mean Corpuscular Volume 86.0 fL (80.0-94.0); Nucleated Red Blood Cells % 0 % (-); Platelet Count 217 10^3/uL (130-400); Red Cell Dist. Width 12.8 % (11.5-14.5)
[2025-07-16 19:40] LABS: ALT (SGPT) 33 U/L (0-50); AST (SGOT) 23 U/L (17-59); Albumin 4.8 g/dl (3.5-5.0); Alkaline Phosphatase 48 U/L (38-126); Blood Urea Nitrogen 19 mg/dl (9-20); Calcium 9.5 mg/dl (8.4-10.2); Carbon Dioxide 23 mmol/L (22-30); Chloride 109 mmol/L (98-107); Glucose 94 mg/dl (70-99); Potassium 4.2 mmol/L (3.5-5.1); Sodium 138 mmol/L (135-145); Total Protein 7.6 g/dl (6.3-8.2); eGFR > 60.00
[2025-07-16 19:53] LABS: Troponin I < 0.012 ng/ml
--- NOTE | 2025-07-16 21:16 | ED.GENMED ---
History of Present Illness
General
Chief Complaint: Chest Pain
Time Seen by Provider: 07/16/25 21:16
History of Present Illness
History of Present Illness:
FOCUSED PAST MEDICAL HISTORY
- The patient has a history of anxiety/depression, sarcoidosis, high blood pressure, hyperlipidemia, GERD
REVIEW OF OLD RECORDS
- I reviewed records, I saw this patient here in the emergency department seen with chest pain 1 month ago. 2 troponins on 06/15/2025 were normal.
Note:
CHIEF COMPLAINT(S)
Chest discomfort and elevated blood pressure.
HISTORY OF PRESENT ILLNESS
The patient is a 59-year-old male with a history of hypertension, recently experiencing chest discomfort and elevated blood pressure. The patient underwent cataract surgery two days prior and was advised by their milieu coordinator, Dr. Delcid, to
discontinue blood pressure medication due to nocturnal hypotension. The patients blood pressure at night drops to around 102/68 mmHg, while it is elevated during the day. Tonight's episode occurred after an argument around 6 PM, prompting the onset
of symptoms including sweating and pressure-like chest pain. The patient mentioned these symptoms were similar to previous experiences. The patient had no recent coronary interventions, and past stress tests showed no abnormalities. The
[facility] ([facility] The patient continues to feel weak with chest pressure, but no pain upon palpation.
PAST MEDICAL AND SURGICAL HISTORY
History of hypertension, cataract surgery (two days ago).
CHRONIC MEDICAL CONDITIONS SIGNIFICANTLY AFFECTING CARE
Chronic conditions affecting care include hypertension.
PHYSICAL EXAM
- General: Well appearing in no distress
- HEENT: Moist oral mucosa, currently wearing sunglasses related to recent eye surgery
- Cardiovascular: No murmurs, normal heart rate, regular rhythm, there appears to be some tenderness with palpation of the left lower anterolateral chest wall
- Pulmonary: No respiratory distress, breath sounds are clear and equal
- Abdomen: Soft with no peritoneal signs, no tenderness
- Neurologic: Excellent strength all extremities, no coordination deficits
- Psychiatric: Appropriate mental status, normal insight and judgement
- Extremities: Nontender, no edema, moves all extremities equally
- Skin: No rash, no lesions
PLAN
Repeat cardiac blood work to ensure no changes since the previous visit.
DIFFERENTIAL DIAGNOSIS
The Differential Diagnosis includes, in no particular order and is not limited to:
- Hypertension
- Angina
- Panic attack
- Anxiety
- Gastroesophageal reflux disease (GERD)
- Pericarditis
- Myocardial infarction
- Hypertensive crisis
- Pheochromocytoma
- Unstable angina
SUMMARY OF ENCOUNTER
The patient presented with chest discomfort and elevated blood pressure following an argument. The patient has a history of cataract surgery two days ago and recent modifications in hypertension management by their milieu coordinator. The
Electrocardiogram (EKG) and initial cardiac blood tests do not indicate immediate cardiac events. A repeat cardiac blood work is planned.
MEDICATION RECONCILIATION
- The patient is on lorazepam daily.
- Eye steroid drops post-cataract surgery.
- No current blood pressure medication.
MEDICAL DECISION MAKING
-Complexity of Data Reviewed: Chronic conditions affecting care include hypertension. The Differential Diagnosis list includes hypertension, angina, panic attack, anxiety, GERD, pericarditis, myocardial infarction, hypertensive crisis,
pheochromocytoma, and unstable angina.
-Data:
- Category 1:
- Repeat cardiac blood work is planned.
- Category 2:
- My independent interpretation of EKG: Normal findings.
-Risk:
- Consideration of Admission/Observation: Escalation of care including admission/observation was considered given the complexity and risk of the patients presenting complaint, exam findings, and/or their underlying comorbidities. However, ultimately
I feel the patient is safe for outpatient management with close follow-up. Reasoning: Work-up reassuring, does not reveal any acute life/organ-threatening processes, patients symptoms well-controlled upon reevaluation, reexamination is reassuring,
vitals are stable, patient agreeable with discharge, reliable for follow-up.
DIAGNOSIS
- Hypertension: I10
- Chest pain, unspecified: R07.9
EKG
- Sinus 60, left axis deviation, no acute ST abnormality, no change from 06/15/2025
LABS
- CBC and chemistries including troponin x 2 unremarkable
SUMMARY OF ENCOUNTER
The patient, a 59-year-old male with a history of hypertension, presented with chest discomfort and elevated blood pressure following an argument. The patient had undergone cataract surgery two days ago and recently stopped blood pressure medication
on the advice of Dr. Delcid, the milieu coordinator. The patient experienced symptoms similar to previous episodes, including sweating and pressure-like chest pain. Initial EKG and cardiac blood work, including two troponin tests, were normal, indicating
no immediate cardiac events such as myocardial infarction. The patient�s heart rate was found to be stable, fluctuating between 58 to 62 bpm during the visit. Given these findings, admission to the hospital was not deemed necessary at this time.
DISPOSITION
Discharge.
ASSESSMENT
The patient was not experiencing a myocardial infarction based on normal troponin levels and EKG results. However, coronary disease cannot be entirely ruled out, and follow-up with a milieu coordinator is recommended.
PLAN
Discharge with instructions to follow up with the milieu coordinator. Evaluate the necessity of stents or further intervention in case of coronary disease, but no acute interventions required now.
INDEPENDENT REVIEW OF LABS AND INTERPRETATION OF TESTS
My independent review of cardiac blood work is normal troponin levels, indicating no myocardial infarction. Basic blood work, complete blood count, and complete metabolic profile were also performed.
FOLLOW-UP INSTRUCTIONS
Please follow up with a milieu coordinator for further evaluation of coronary disease and management of hypertension. Ensure that you contact the milieu coordinator, possibly Dr. Delcid or the [facility], for a complete evaluation as an outpatient.
MEDICATION RECONCILIATION
Currently on lorazepam and steroid eye drops; no current blood pressure medication as advised post-surgery.
MEDICAL DECISION MAKING
-Complexity of Data Reviewed: Chronic conditions affecting care include a history of hypertension. The Differential Diagnosis list includes hypertension, angina, panic attack, anxiety, gastroesophageal reflux disease (GERD), pericarditis, myocardial
infarction, hypertensive crisis, pheochromocytoma, and unstable angina.
-Data:
Category 1
My independent interpretation of the EKG indicates normal findings. Two troponin tests were normal. Basic blood work, complete blood count, and complete metabolic profile were conducted.
Category 3
Discussion of management with a milieu coordinator (Dr. Delcid or [facility]) is advised for future evaluation.
-Risk:
Consideration of Admission/Observation: Escalation of care, including admission/observation, was considered given the complexity and risk of the patients presenting complaints, exam findings, and underlying comorbidities. However, ultimately I feel
the patient is safe for outpatient management with close follow-up. Reasoning: Work-up reassuring, does not reveal any acute life/organ-threatening processes, patients symptoms well-controlled upon reevaluation, reexamination is reassuring, vitals
are stable, patient agreeable with discharge, reliable for follow-up.
DIAGNOSIS
- Hypertension: I10
- Chest pain, unspecified: R07.9
Past History
Past History
ED Past Medical History: GERD, HTN, Hypercholesterolemia, Psychiatric (Anxiety and Depression Panic disorder) and Other (sarcoidosis-in remission per pt 04/2017, 'aneurisms of carotids', concussion Sep 2016, migraines, Vertigo, Herniated disc, Sleep
apnea, Hiatal hernia, UTI, )
ED Past Surgical History: Orthopedic (ACL left knee repair, Jaw implants Laminectomy) and Urological (TURP, atonic bladder, suprapubic tube)
Patient has exhibited threatening behavior?: No
Social History
Tobacco: Non-smoker
Alcohol: None
Drug: None
Personal: Partner
Living: with roommate
Employment: Disabled
Family History
Family History: CAD and Other
Phy Exam
Physical Exam
Physical Exam:
See HPI
Scores
Heart Score for Chest Pain Patients
STEMI patient?: Not applicable
Course
Orders/Labs/Results
Orders:
Orders
07/16/25 18:44
EKG [Electrocardiogram (*1)] Urgent
Reason for Study: Chest Pain
EKG- Treatment ONCE
07/16/25 18:59
Complete Blood Count/With Diff Urgent
Comprehensive Metabolic Panel Urgent
Troponin I Urgent
07/16/25 21:48
Troponin I Urgent
Abnormal Lab Results
07/16/25
18:59
Chloride 109 H mmol/L
(98-107)
07/16/25 18:59
07/16/25 18:59
Vital Signs
Initial and Last Documented VS:
Initial Vital Signs
Temp Pulse Resp BP Pulse Ox
36.2 C 67 18 164/111 98
07/16/25 18:47 07/16/25 18:47 07/16/25 18:47 07/16/25 18:47 07/16/25 18:47
Last Documented Vital Signs
Temp Pulse Resp BP Pulse Ox
36.2 C 55 21 153/103 97
07/16/25 18:47 07/16/25 22:45 07/16/25 22:45 07/16/25 22:00 07/16/25 22:45
*Pulse Oximetry
SaO2: 98
Oxygen Mode of Delivery: Room air
Patient hypoxic: no
*Critical Care Note
Total Time (30-74mins, 75-104mins- exclusive of procedures): Not Applicable
ED Attending Note
-
Portions of this chart may have been created with voice recognition software.� Occasional wrong word or��sound alike� substitutions may have occurred due to the inherent limitations of voice recognition software.
Discharge Plan
Departure
Patient Disposition: Home (Routine Discharge)
Date of Disposition: 07/16/25
Time of Disposition: 23:02
Patient with high blood pressure during this ER visit?: Yes
Discharge Problem:
Chest pain
Instructions: Chest Pain NON-DHP Processing Inspector Follow Up
Prescriptions:
No Action
valacyclovir [Valtrex] 500 MG tablet
500 mg PO DAILY
lorazepam 1 MG tablet
1 mg PO BID PRN (Reason: ANXIETY)
Patient Comments:
11/18/2023: LAST FILLED 10/06/23, 60 TABS FOR 30 DAYS FROM [facility][id number]
famotidine 20 MG tablet
20 mg PO BID
nebivolol 2.5 MG tablet
1.25 mg PO HS
albuterol sulfate 90 mcg/actuation HFA aerosol inhaler
2 puff INHALATION R Q4 PRN (Reason: SOB/WHEEZING)
cyclosporine 0.05 % dropperette
1 drp BOTH EYES HS
metoclopramide HCl [Reglan] 10 mg tablet
10 mg PO Q8HPRN PRN (Reason: Migraine headache) Qty: 30 0RF
fosfomycin tromethamine 3 gram packet
3 g PO Q3D Qty: 2 0RF
fosfomycin tromethamine 3 gram packet
3 g PO ONCE Qty: 2 0RF
Rx Instructions:
Take dose on Friday and Friday
Referrals:
SOLE VILLA DO [Family Provider, Family Practice]
Activity Restrictions/Additional Instructions:
The cause of your symptoms is unclear. Chest discomfort may have been related to the argument that you had earlier/stress/anxiety. 2 sets of cardiac blood test were both normal tonight. Your EKG is unremarkable. Follow-up with [facility].
Interventions
Interventions:
*Risk Screen - Suicide Last Done: 07/16/25 18:47
*General Assessment Last Done: 07/16/25 18:47
*Neglect/Abuse Screening Last Done: 07/16/25 18:47
*ED- Fall Risk Assessment Last Done: 07/16/25 21:53
*ED COVID-19 Vaccine History Last Done: 07/16/25 18:47
ED- Cardiac Assessment Last Done: 07/16/25 21:52
Discharge Date and Time
Print Language: ALBANIAN
[2025-07-16 21:19] VITALS: BP 166/109
[2025-07-16 22:00] VITALS: BP 153/103
[2025-07-16 22:35] LABS: Troponin I < 0.012 ng/ml
[2025-07-16 23:00] VITALS: BP 164/105
== END 2025-07-16 23:16 | disposition home or self-care (01) ==
LOC: EMR 18:42
PROVIDERS: Emergency Medicine; EMERGENCY PHYSICIAN Emergency Medicine; FAMILY PHYSICIAN Student in an Organized Health Care Education/Training Program
DX: R07.9 Chest pain, unspecified (principal); I10 Essential (primary) hypertension; I95.89 Other hypotension; E78.00 Pure hypercholesterolemia, unspecified; G47.30 Sleep apnea, unspecified; D86.9 Sarcoidosis, unspecified; K21.9 Gastro-esophageal reflux disease without esophagitis; K44.9 Diaphragmatic hernia without obstruction or gangrene; F41.9 Anxiety disorder, unspecified; F32.A Depression, unspecified; F41.0 Panic disorder [episodic paroxysmal anxiety]; Z87.820 Personal history of traumatic brain injury; Z82.49 Family history of ischemic heart disease and other diseases of the circulatory system
CPT/HCPCS: 99284; 80053; 84484; 85025; 93005

== ENCOUNTER 2025-07-31 10:20 | Emergency (ER) | payer MEDICARE, OTHER, SELFPAY ==
[2025-07-31 10:24] VITALS: BP 172/123
--- NOTE | 2025-07-31 12:15 | ED.GENMED ---
History of Present Illness
General
Chief Complaint: Exposure-Chemical
Source: patient
Exam Limitations: none
Time Seen by Provider: 07/31/25 11:27
Nursing documentation reviewed up to this point in time: agreed with
History of Present Illness
History of Present Illness:
59 yo al here for poss ingestion of foreign substance. concerns about potential contamination of a bottle of water consumed at 9:30 this a.m. The patient noted discoloration inside the bottle after consumption, prompting calls to poison control,
his primary care physician, and the store where the water was purchased. The water appeared normal at the time of drinking,shortly afterwards his noted discoloration on the side of the bottle that he states he did not see prior to drinking it;
has felt nauseous since. The patient has a history of neurogenic bladder requiring an SP tube following back surgery in 2019. He has experienced dark-colored urine, attributed to dehydration, but this morning it was especially dark. He drank a lot
of fluid and the urine is now pale yellow. The patient denies shortness of breath, chest pain, diarrhea, vomiting, or abdominal pain.
Past History
Past History
ED Past Medical History: GERD, HTN, Hypercholesterolemia, Psychiatric (Anxiety and Depression Panic disorder) and Other (sarcoidosis-in remission per pt 04/2017, 'aneurisms of carotids', concussion Sep 2016, migraines, Vertigo, Herniated disc, Sleep
apnea, Hiatal hernia, UTI, )
ED Past Surgical History: Orthopedic (ACL left knee repair, Jaw implants Laminectomy) and Urological (TURP, atonic bladder, suprapubic tube)
Patient has exhibited threatening behavior?: No
Social History
Tobacco: Non-smoker
Alcohol: None
Drug: None
Personal: Partner
Living: with roommate
Employment: Disabled
Family History
Family History: CAD and Other
Review of Systems
Review of Systems
Allergies reviewed?: Yes
All Other Systems: ROS reviewed and negative except as documented in HPI and ROS
Constitutional: Denies fever
EENT: Denies sore throat or mouth swelling
Respiratory: Denies trouble breathing
Cardiac: Denies chest pain
ABD/GI: Denies abdominal pain, vomiting or diarrhea
: Denies bleeding
Musculoskeletal: Reports no symptoms
Skin: Reports no symptoms
Neurological: Reports no symptoms
Phy Exam
Physical Exam
Physical Exam:
GENERAL: No acute distress. A&Ox3.
CONSTITUTIONAL: Afebrile.
EYES: clear, conjunctivae normal
ENMT: moist mucus membranes, Pharynx nl, oral mucosa and tongue normal.
RESPIRATORY: Regular respirations, nonlabored, lungs clear.
CARDIOVASCULAR: Regular rate and rhythm, no murmurs, no rubs.
GI: Soft, nontender, normal BS
: SP tube draining clear light yellow urine
MUSCULOSKELETAL: Moves with ease. Well perfused.
SKIN: Warm, dry, pink
PSYCH: Normal mood and affect. Well kept, interactive and appropriate
NEUROLOGIC: Awake, alert and oriented. No focal neurological deficits
Course
Orders/Labs/Results
Orders:
Orders
07/31/25 12:28
Complete Blood Count/With Diff Urgent
Comprehensive Metabolic Panel Urgent
Abnormal Lab Results
07/31/25
12:28
Glucose 100 H mg/dl
(70-99)
Total Bilirubin 1.4 H mg/dl
(0.2-1.3)
Total Protein 8.6 H g/dl
(6.3-8.2)
Albumin 5.3 H g/dl
(3.5-5.0)
07/31/25 12:28
07/31/25 12:28
Vital Signs
Initial and Last Documented VS:
Initial Vital Signs
Temp Pulse Resp BP Pulse Ox
98.8 F 99 18 172/123 99
07/31/25 10:24 07/31/25 10:24 07/31/25 10:24 07/31/25 10:24 07/31/25 10:24
Last Documented Vital Signs
Temp Pulse Resp BP Pulse Ox
98.8 F 71 16 160/120 98
07/31/25 10:24 07/31/25 13:47 07/31/25 13:47 07/31/25 13:47 07/31/25 13:47
Unit Support Representative consulted with Physician
Unit Support Representative consulted with physician?: Yes
Name of Physician Consulted: Jorge
MDM/Problems Addressed
Differential Diagnosis Includes:
Contaminated bottled water, medication side effect
MDM/Problems Addressed:
59 yo al here for poss ingestion of foreign substance. concerns about potential contamination of a bottle of water consumed at 9:30 this a.m. The patient noted discoloration inside the bottle after consumption, prompting calls to poison control,
his primary care physician, and the store where the water was purchased. The water appeared normal at the time of drinking,shortly afterwards his noted discoloration on the side of the bottle that he states he did not see prior to drinking it;
has felt nauseous since. The patient has a history of neurogenic bladder requiring an SP tube following back surgery in 2019. He has experienced dark-colored urine, attributed to dehydration, but this morning it was especially dark. He drank a lot
of fluid and the urine is now pale yellow. The patient denies shortness of breath, chest pain, diarrhea, vomiting, or abdominal pain.
Afebrile, NAD
PE unremarkable. Urine clear pale yellow in SP bag.
There is a 4 x a cm glob of purple material clinging to the side of the bottle about 2 cm up from the bottom. There is small amount purple fluid at the bottom of the bottle. It looks like a glob of concentrated purple food coloring.
Pt is wondering if we can perform lab studied on the material in the bottle. Informed we only do lab studies on bodily fluids. Recommended f/u with [facility] if he wants to pursue further.
Will check basic labs.
If labs, ok, good to discharge.
Case discussed with Dr. Patel who agrees
1:20 PM: CBC normal
CMP normal
Patient stable for discharge.
Patient's blood pressure remains high. States he was taken off his Metoprolol due to low BP. He will check it at home and discuss with his [place] on 08/05 appointment
*Pulse Oximetry
SaO2: 99
Oxygen Mode of Delivery: Room air
Patient hypoxic: no
*Critical Care Note
Total Time (30-74mins, 75-104mins- exclusive of procedures): Not Applicable
ED Attending Note
-
Portions of this chart may have been created with voice recognition software.� Occasional wrong word or��sound alike� substitutions may have occurred due to the inherent limitations of voice recognition software.
Discharge Plan
Departure
Patient Disposition: Home (Routine Discharge)
Date of Disposition: 07/31/25
Time of Disposition: 13:24
Patient with high blood pressure during this ER visit?: Yes
Condition: Good
Discharge Problem:
BP (high blood pressure), possible ingestion foreign substance
Instructions: High blood pressure in adults, Understanding your risk of high blood pressure
Prescriptions:
No Action
valacyclovir [Valtrex] 500 MG tablet
500 mg PO DAILY
lorazepam 1 MG tablet
1 mg PO BID PRN (Reason: ANXIETY)
Patient Comments:
11/18/2023: LAST FILLED 10/06/23, 60 TABS FOR 30 DAYS FROM [facility]#[id number]
famotidine 20 MG tablet
20 mg PO BID
nebivolol 2.5 MG tablet
1.25 mg PO HS
albuterol sulfate 90 mcg/actuation HFA aerosol inhaler
2 puff INHALATION R Q4 PRN (Reason: SOB/WHEEZING)
cyclosporine 0.05 % dropperette
1 drp BOTH EYES HS
metoclopramide HCl [Reglan] 10 mg tablet
10 mg PO Q8HPRN PRN (Reason: Migraine headache) Qty: 30 0RF
fosfomycin tromethamine 3 gram packet
3 g PO Q3D Qty: 2 0RF
fosfomycin tromethamine 3 gram packet
3 g PO ONCE Qty: 2 0RF
Rx Instructions:
Take dose on Friday and Friday
Referrals:
SOLE VILLA, DO [Family Provider, Family Practice] - As needed
Activity Restrictions/Additional Instructions:
As we discussed, your blood pressure is high.
Take you blood pressure at home 1-2 times a day under cam circumstances and record it over the next week and discuss with your doctor if it remains high.
Your blood work here today shows nothing worrisome.
Interventions
Interventions:
*Risk Screen - Suicide Last Done: 07/31/25 11:46
*General Assessment Last Done: 07/31/25 10:26
*Neglect/Abuse Screening Last Done: 07/31/25 10:26
*ED- Fall Risk Assessment Last Done: 07/31/25 13:48
*ED COVID-19 Vaccine History Last Done: 07/31/25 10:26
*Nursing Disposition Last Done: 07/31/25 13:48
ED-EENT Assessment Last Done: 07/31/25 12:15
ED- Pulmonary Assessment Last Done: 07/31/25 12:15
ED-Skin Assessment Last Done: 07/31/25 12:15
Discharge Date and Time
Discharge Date/Time: 07/31/25 13:49
Print Language: LIBERIAN
[2025-07-31 12:35] LABS: Hematocrit 47.3 % (39.0-52.0); Hemoglobin 16.8 g/dL (13.0-18.0); Mean Corp Hgb Conc. 35.5 g/dL (33.0-37.0); Mean Corpuscular Volume 87.3 fL (80.0-94.0); Nucleated Red Blood Cells % 0 % (-); Platelet Count 253 10^3/uL (130-400); Red Cell Dist. Width 12.7 % (11.5-14.5)
[2025-07-31 12:55] LABS: ALT (SGPT) 36 U/L (0-50); AST (SGOT) 30 U/L (17-59); Albumin 5.3 g/dl (3.5-5.0); Alkaline Phosphatase 51 U/L (38-126); Blood Urea Nitrogen 14 mg/dl (9-20); Calcium 9.5 mg/dl (8.4-10.2); Carbon Dioxide 24 mmol/L (22-30); Chloride 106 mmol/L (98-107); Glucose 100 mg/dl (70-99); Potassium 4.4 mmol/L (3.5-5.1); Sodium 140 mmol/L (135-145); Total Protein 8.6 g/dl (6.3-8.2); eGFR > 60.00
[2025-07-31 13:06] VITALS: BP 145/116
[2025-07-31 13:47] VITALS: BP 160/120
== END 2025-07-31 13:49 | disposition home or self-care (01) ==
LOC: EMR 10:20
PROVIDERS: Registered Nurse; EMERGENCY PHYSICIAN Emergency Medicine; FAMILY PHYSICIAN Student in an Organized Health Care Education/Training Program
DX: I10 Essential (primary) hypertension (principal); E78.00 Pure hypercholesterolemia, unspecified; G47.30 Sleep apnea, unspecified; D86.9 Sarcoidosis, unspecified; N31.2 Flaccid neuropathic bladder, not elsewhere classified; K21.9 Gastro-esophageal reflux disease without esophagitis; F41.9 Anxiety disorder, unspecified; F32.A Depression, unspecified; F41.0 Panic disorder [episodic paroxysmal anxiety]; Z87.820 Personal history of traumatic brain injury; Z82.49 Family history of ischemic heart disease and other diseases of the circulatory system
CPT/HCPCS: 99283; 80053; 85025

== ENCOUNTER 2025-09-02 07:12 | Inpatient (IN) | payer MEDICARE, OTHER, SELFPAY ==
[2025-09-02 02:33] VITALS: BP 147/97
[2025-09-02 03:15] VITALS: BMI 27.6
--- NOTE | 2025-09-02 03:15 | ED.GENMED ---
History of Present Illness
<Lucie Rothman PA-C - Last Filed: 09/02/25 06:41>
General
Chief Complaint: Fever
Source: patient
Exam Limitations: none
Time Seen by Provider: 09/02/25 02:34
Nursing documentation reviewed up to this point in time: agreed with
History of Present Illness
History of Present Illness:
see MDM
Past History
<KARLEE Botello Last Filed: 09/02/25 06:41>
Past History
ED Past Medical History: GERD, HTN, Hypercholesterolemia, Psychiatric (Anxiety and Depression Panic disorder) and Other (sarcoidosis-in remission per pt 04/2017, 'aneurisms of carotids', concussion Sep 2016, migraines, Vertigo, Herniated disc, Sleep
apnea, Hiatal hernia, UTI, )
ED Past Surgical History: Orthopedic (ACL left knee repair, Jaw implants Laminectomy) and Urological (TURP, atonic bladder, suprapubic tube)
Patient has exhibited threatening behavior?: No
Social History
Tobacco: Non-smoker
Alcohol: None
Drug: None
Personal: Partner
Living: with roommate
Employment: Disabled
Family History
Family History: CAD and Other
Phy Exam
<KARLEE Botello Last Filed: 09/02/25 06:41>
Physical Exam
Physical Exam:
GENERAL: Alert , in no apparent distress
EYE: pupils equal and reactive
NECK: Supple
ENT: o/p clr, mmm.
CARDIAC: Regular rate and rhythm .
LUNGS: Clear breath sounds bilaterally, no acute respiratory distress, no wheezes/rales/rhonchi
ABDOMEN: Soft, without focal tenderness, no r/g, no cvat, normal bowel sounds
Suprapubic site without any erythema, draining yellow urine in the bag, no bladder distention
NEUROLOGICAL: Alert and oriented, no focal neuro deficits
SKIN: Warm and dry, skin intact.
MUSCULOSKELETAL: No edema, well perfused. neg delores's sign
PSYCH: Normal and appropriate interaction.
Sepsis
<Lucie Rothman PA-C - Last Filed: 09/02/25 06:41>
Sepsis Screening
Sepsis Assessment: Sepsis Ruled Out
Sepsis Screen
Sepsis Screen: Sepsis Ruled Out
Date: 09/02/25
Time: 06:41
Course
<Lucie Rothman PA-C - Last Filed: 09/02/25 06:41>
Orders/Labs/Results
Orders:
Orders
09/02/25 03:13
CT Abd/Pel (IV only)-DH only Urgent
Comment:
Reason For Exam: L flank pain, fever, suprapubic tube
09/02/25 03:14
0.9% Sodium Chloride 1000 ml [Nss] 1,000 ml IV BOLUS
Acetaminophen [Tylenol] 650 mg PO NOW STA
09/02/25 03:34
COVID-19 Antigen Urgent
Source: Nasal Swab
Complete Blood Count/With Diff Urgent
Comprehensive Metabolic Panel Urgent
Lactic Acid Q4H
Comment: CANCEL 2nd LACTIC ACID IF 1st LACTIC ACID IS LESS THAN 2
Urinalysis Reflex To Culture Urgent
Date Specimen was Collected: 09/02/25
Time Specimen was Collected: 03:16
Urine Microscopic Reflex Cult Urgent
Blood Culture Q30M
LEXY Source: Blood/Venous
Specimen Description:
Blood Culture Q30M
LEXY Source: Blood/Venous
Specimen Description:
Influenza A+B Rapid Molecular Urgent
LEXY Source: Nasal Swab
Specimen Description:
Urine Culture Urgent
LEXY Source: U
Specimen Description:
Date Specimen was Collected: 09/02/25
Time Specimen was Collected: 03:16
09/02/25 05:11
Meropenem [Merrem] 1,000 mg IV NOW STA
09/02/25 05:40
Sterile Water [Sterile Water For Injection] 20 ml .ROUTE .STK-MED
09/02/25 07:15
Lactic Acid Q4H
Comment: CANCEL 2nd LACTIC ACID IF 1st LACTIC ACID IS LESS THAN 2
Abnormal Lab Results
09/02/25
03:34
WBC 14.2 H 10^3/uL
(4.8-10.8)
Abs Immat Gran (auto) 0.1 H 10^3/uL
(0-0.05)
Absolute Neuts (auto) 11.5 H 10^3/uL
(1.4-6.5)
Absolute Monos (auto) 1.0 H 10^3/uL
(0.1-0.6)
Neutrophils % 80.7 H %
(42.2-75.2)
Lymphocytes % 10.8 L %
(20.5-51.1)
Glucose 117 H mg/dl
(70-99)
Total Bilirubin 2.0 H mg/dl
(0.2-1.3)
Ur Occult Blood Reflex 1+ A
(Negative)
Urine Nitrite (Reflex) Positive A
(Negative)
Leukocyte Esterase Rfl 3+ A
(Negative)
Urine WBC (Reflex) 80-90 A /HPF
(0-5)
Urine Bacteria (Reflex) Moderate A
(Negative)
Urine Albumin (Reflex) 2+ A
(Neg - Trace)
09/02/25 03:34
09/02/25 03:34
Vital Signs
Temp: 37.7 C
Initial and Last Documented VS:
Initial Vital Signs
Temp Pulse BP Pulse Ox
36.7 C 99 147/97 100
09/02/25 02:33 09/02/25 02:33 09/02/25 02:33 09/02/25 02:33
Last Documented Vital Signs
Temp Pulse Resp BP Pulse Ox
36.7 C 83 18 139/96 99
09/02/25 04:46 09/02/25 04:46 09/02/25 04:46 09/02/25 04:46 09/02/25 04:46
<Sean Myles, - Last Filed: 09/02/25 05:37>
Orders/Labs/Results
Orders:
Orders
09/02/25 03:13
CT Abd/Pel (IV only)-DH only Urgent
Comment:
Reason For Exam: L flank pain, fever, suprapubic tube
09/02/25 03:14
0.9% Sodium Chloride 1000 ml [Nss] 1,000 ml IV BOLUS
Acetaminophen [Tylenol] 650 mg PO NOW STA
09/02/25 03:34
COVID-19 Antigen Urgent
Source: Nasal Swab
Complete Blood Count/With Diff Urgent
Comprehensive Metabolic Panel Urgent
Lactic Acid Q4H
Comment: CANCEL 2nd LACTIC ACID IF 1st LACTIC ACID IS LESS THAN 2
Urinalysis Reflex To Culture Urgent
Date Specimen was Collected: 09/02/25
Time Specimen was Collected: 03:16
Urine Microscopic Reflex Cult Urgent
Blood Culture Q30M
LEXY Source: Blood/Venous
Specimen Description:
Blood Culture Q30M
LEXY Source: Blood/Venous
Specimen Description:
Influenza A+B Rapid Molecular Urgent
LEXY Source: Nasal Swab
Specimen Description:
Urine Culture Urgent
LEXY Source: U
Specimen Description:
Date Specimen was Collected: 09/02/25
Time Specimen was Collected: 03:16
09/02/25 05:11
Meropenem [Merrem] 1,000 mg IV NOW STA
09/02/25 05:40
Sterile Water [Sterile Water For Injection] 20 ml .ROUTE .STK-MED
09/02/25 07:15
Lactic Acid Q4H
Comment: CANCEL 2nd LACTIC ACID IF 1st LACTIC ACID IS LESS THAN 2
Abnormal Lab Results
09/02/25
03:34
WBC 14.2 H 10^3/uL
(4.8-10.8)
Abs Immat Gran (auto) 0.1 H 10^3/uL
(0-0.05)
Absolute Neuts (auto) 11.5 H 10^3/uL
(1.4-6.5)
Absolute Monos (auto) 1.0 H 10^3/uL
(0.1-0.6)
Neutrophils % 80.7 H %
(42.2-75.2)
Lymphocytes % 10.8 L %
(20.5-51.1)
Glucose 117 H mg/dl
(70-99)
Total Bilirubin 2.0 H mg/dl
(0.2-1.3)
Ur Occult Blood Reflex 1+ A
(Negative)
Urine Nitrite (Reflex) Positive A
(Negative)
Leukocyte Esterase Rfl 3+ A
(Negative)
Urine WBC (Reflex) 80-90 A /HPF
(0-5)
Urine Bacteria (Reflex) Moderate A
(Negative)
Urine Albumin (Reflex) 2+ A
(Neg - Trace)
09/02/25 03:34
09/02/25 03:34
Vital Signs
Initial and Last Documented VS:
Initial Vital Signs
Temp Pulse BP Pulse Ox
36.7 C 99 147/97 100
09/02/25 02:33 09/02/25 02:33 09/02/25 02:33 09/02/25 02:33
Last Documented Vital Signs
Temp Pulse Resp BP Pulse Ox
36.7 C 83 18 139/96 99
09/02/25 04:46 09/02/25 04:46 09/02/25 04:46 09/02/25 04:46 09/02/25 04:46
<Lucie Rothman PA-C - Last Filed: 09/02/25 06:41>
MDM/Problems Addressed
Differential Diagnosis Includes:
see MDM
MDM/Problems Addressed:
Note:
CHIEF COMPLAINT(S)
Headache, chills, abdominal pain, foul-smelling urine.
HISTORY OF PRESENT ILLNESS
The patient is a 59-year-old male with a history of back surgery complications leading to bladder dysfunction and subsequent placement of a suprapubic catheter, which has been in place for over two years following discomfort with [place] catheters. He
presents to the emergency department with complaints including headache, chills, abdominal pain, and foul-smelling urine. The patient reports the onset of these symptoms as occurring yesterday. He also describes a history of a dislodged suprapubic
catheter approximately a week ago, which was manipulated and repositioned without replacement at an emergency room visit last Friday. (angel)
The patient was treated with Linezolid for a suspected infection diagnosed on August 19 and completed a seven-day course. However, he states that although his lab results were reported as good, the smell of his urine did not improve significantly
during the treatment. He notes the presence of abdominal pain associated with eating, following a recent CT scan identifying narrowing of ' a vein in my stomach' consistent with possible SMA syndrome.
Additional symptoms include back pain and transient sore throat without cough, diarrhea, or vomiting. He denies alcohol use and expresses ongoing discomfort despite completion of the antibiotic course. Furthermore, he mentions worsening general
malaise and difficulty finding comfort, as well as isolated episodes of sweating and the need to stay warm.
CHRONIC MEDICAL CONDITIONS SIGNIFICANTLY AFFECTING CARE
1. Bladder dysfunction status post back surgery.
2. Presence of chronic suprapubic catheter.
SOCIAL HISTORY
The patient denies alcohol use.
REVIEW OF SYSTEMS
- General: Complains of chills and a general feeling of malaise.
- Neurological: Reports headache.
- Gastrointestinal: Admits to abdominal pain and discomfort when eating. Denies diarrhea or vomiting.
- Genitourinary: Foul-smelling urine.
- Respiratory: Denies cough or respiratory distress. Mild sore throat noted.
- Musculoskeletal: Reports back pain.
PHYSICAL EXAM
Nursing notes reviewed and vital signs reviewed.
- General: The patient appears uncomfortable.
- Abdomen: Tenderness noted in the area of the suprapubic catheter.
PROBLEM LIST
Acute:
1. Possible recurrent urinary tract infection with suprapubic catheter.
2. Headache with chills, possible systemic infection.
3. Abdominal pain, possibly related to SMA syndrome.
PLAN
1. Conduct blood work and draw cultures to assess for infection.
2. Consider changing suprapubic catheter if appropriate, given the history of dislodgement and symptoms suggestive of infection.
3. Evaluate for possible flu and other systemic infections as differentials for current symptoms.
4. Follow up with gastrointestinal evaluation for suspected SMA syndrome based on recent imaging.
5. Assess pain management needs and explore further management of chronic back pain.
DIFFERENTIAL DIAGNOSIS
The Differential Diagnosis includes, in no particular order and is not limited to:
1. Recurrent urinary tract infection.
2. Possible sepsis secondary to urinary source.
3. Superior Mesenteric Artery syndrome.
4. Influenza or viral infection.
5. Post-surgical complications related to back surgery.
6. Chronic urinary colonization with intermittent exacerbation.
7. Gastrointestinal conditions, possibly peptic ulcer disease.
8. Nephrolithiasis or renal colic.
9. Sinusitis contributing to headache.
10. Dehydration exacerbating systemic symptoms.
09/02/25 - 05:27
White blood cell count has elevated to 14, suggesting an ongoing infection. Urinalysis confirmed presence of infection, which corresponds with fever and general malaise. CT scan indicates bladder wall inflammation, likely due to a chronic bacterial
colonization. Patient has been started on meropenem after consulting with the pharmacist to avoid allergic reactions, considering patient�s extensive allergy history. Blood cultures have been ordered to check for bacteremia, results pending in two
days. Negative for flu and COVID, with main symptoms being shivering, back pain, and bladder-related issues. Monitoring closely to prevent progression to a kidney infection.
<Lucie Rothman PA-C - Last Filed: 09/02/25 06:41>
*Pulse Oximetry
SaO2: 100
Oxygen Mode of Delivery: Room air
Patient hypoxic: no
*Critical Care Note
Total Time (30-74mins, 75-104mins- exclusive of procedures): Not Applicable
ED Attending Note
<Lucie Rothman PA-C - Last Filed: 09/02/25 06:41>
-
Portions of this chart may have been created with voice recognition software.� Occasional wrong word or��sound alike� substitutions may have occurred due to the inherent limitations of voice recognition software.
<Sean Myles DO - Last Filed: 09/02/25 05:37>
ED Attending Note
Patient seen and examined by attending physician: Yes
ED Attending Note:
59-year-old male presents with foul-smelling urine and pain. Patient has indwelling suprapubic catheter. Urinalysis does show UTI. Patient to be admitted to the hospitalist service. Patient was seen in conjunction with the [facility]. I have reviewed
and agree with her history and treatment plan. On my independent physical exam patient awake alert and oriented. He had several questions for me. When all questions were answered, patient was admitted to hospitalist service.
Discharge Plan
Departure
Patient Disposition: Admit
Date of Disposition: 09/02/25
Time of Disposition: 05:09
Admit to: Med/Surg
Presentation/result/management discussed w/ accepting MD/DO: Hospitalist
Condition: Fair
Covid-19: Negative COVID-19
Discharge Problem:
UTI (urinary tract infection), Fever, Failure of outpatient treatment
Prescriptions:
No Action
valacyclovir [Valtrex] 500 MG tablet
500 mg PO DAILY
lorazepam 1 MG tablet
1 mg PO BID PRN (Reason: ANXIETY)
Patient Comments:
11/18/2023: LAST FILLED 10/06/23, 60 TABS FOR 30 DAYS FROM [id number]
famotidine 20 MG tablet
20 mg PO BID
nebivolol 2.5 MG tablet
1.25 mg PO HS
albuterol sulfate 90 mcg/actuation HFA aerosol inhaler
2 puff INHALATION R Q4 PRN (Reason: SOB/WHEEZING)
cyclosporine 0.05 % dropperette
1 drp BOTH EYES HS
metoclopramide HCl [Reglan] 10 mg tablet
10 mg PO Q8HPRN PRN (Reason: Migraine headache) Qty: 30 0RF
fosfomycin tromethamine 3 gram packet
3 g PO Q3D Qty: 2 0RF
fosfomycin tromethamine 3 gram packet
3 g PO ONCE Qty: 2 0RF
Rx Instructions:
Take dose on Friday and Friday
Interventions
Interventions:
*Risk Screen - Suicide Last Done: 09/02/25 02:35
*General Assessment Last Done: 09/02/25 03:15
*Neglect/Abuse Screening Last Done: 09/02/25 02:35
*ED- Fall Risk Assessment Last Done: 09/02/25 02:35
*ED COVID-19 Vaccine History Last Done: 09/02/25 02:35
*ED Influenza Vaccine History Last Done: 09/02/25 02:35
ED- Neurological Assessment Last Done: 09/02/25 04:20
ED-Skin Assessment Last Done: 09/02/25 04:20
Discharge Date and Time
Print Language: ITALIAN
[2025-09-02] MEDS: TYLENOL 650 MG PO ×2 (03:19→20:12)
[2025-09-02] MEDS: NSS 1000 IV ×3 (03:29→21:56)
[2025-09-02 03:46] LABS: Hematocrit 40.9 % (39.0-52.0); Hemoglobin 14.6 g/dL (13.0-18.0); Mean Corp Hgb Conc. 35.7 g/dL (33.0-37.0); Mean Corpuscular Volume 86.7 fL (80.0-94.0); Nucleated Red Blood Cells % 0 % (-); Platelet Count 172 10^3/uL (130-400); Red Cell Dist. Width 12.0 % (11.5-14.5)
[2025-09-02 04:06] LABS: ALT (SGPT) 27 U/L (0-50); AST (SGOT) 18 U/L (17-59); Albumin 4.4 g/dl (3.5-5.0); Alkaline Phosphatase 46 U/L (38-126); Blood Urea Nitrogen 9 mg/dl (9-20); Calcium 9.3 mg/dl (8.4-10.2); Carbon Dioxide 24 mmol/L (22-30); Chloride 106 mmol/L (98-107); Estimated Creatinine Clearance 85 ml/min; Glucose 117 mg/dl (70-99); Potassium 4.1 mmol/L (3.5-5.1); Sodium 137 mmol/L (135-145); Total Protein 7.2 g/dl (6.3-8.2); eGFR > 60.00
[2025-09-02 04:07] LABS: COVID-19 Antigen Negative (Negative)
[2025-09-02 04:11] LABS: Urine Character Clear (Clear)
[2025-09-02 04:12] LABS: Urine Red Blood Cell 0-2 /HPF (0-2); Urine Squamous Cell 0-2 /LPF (Few)
[2025-09-02 04:13] LABS: Urine White Cell 80-90 /HPF (0-5)
[2025-09-02 04:46] VITALS: BP 139/96
[2025-09-02] MEDS: MERREM 1000 MG IV ×3 (06:38→20:08)
[2025-09-02 06:49] VITALS: BP 135/82
--- NOTE | 2025-09-02 07:03 | HPS.HSE ---
Family Physician
-
Family Physician: SOLE VILLA DO
Chief Complaint
-
Flank pain, Bladder spasms
History of Present Illness
Patient is a 59y M with PMH significant for neurogenic bladder with chronic SPC who presents to ED complaining of bilateral flank pain, bladder spasms and new fevers / chills. Patient states that he has had issues with bladder spasms and flank
pain for about 1-2 weeks now. He was seen at the ED at [facility] one week ago and his SPC was adjusted with some temporary improvement in his symptoms. He was also placed on a one week course of Linezolid at that time by his primary
Urologist - Dr. Ja Bird at [facility]. Patient states that he has developed recurrent spasms and bilateral flank pain in the past 2-3 days. he has also noted general malaise, poor appetite and this evening had shaking chills and fever to 102
degrees.
Patient presented to the ED for further evaluation.
His SPC was last changed on 08/19 at [facility]. He has had suprapubic catheter for about 2 years and has been catheter-dependent for about 4 years in total (following spinal surgery and resultant neurogenic bladder).
Medical History
Past Medical History
Past Medical History: Reports Other
Additional Past Medical History:
Neurogenic Bladder
DDD
Anxiety / Depression
Lung Disease NOS
Bilateral Cavernous Carotid Aneurysms
Hypertension
BPH
Past Surgical History: Reports Other
Additional Past Surgical History:
Lumbar Laminectomy / Discectomy
TURP
Suprapubic Catheter Placement
Social History
Tobacco: Non-smoker
Alcohol: None
Drug: None
Family History
Family History: Not pertinent
Allergies / Home Medications
Allergies reflects when Allergies were last updated in [facility].
Home Medications with original date entered in [facility]
Allergy/Medication List:
Allergies
Allergy/AdvReac Type Severity Reaction Status Date / Time
ciprofloxacin (From Cipro) Allergy Intermediate Itching/tendon Verified 09/02/25 02:35
in leg
sulfamethoxazole (From Allergy Mild Rash Verified 09/02/25 02:35
Bactrim)
trimethoprim (From Bactrim) Allergy Mild Rash Verified 09/02/25 02:35
hydrocodone Allergy Unknown Unknown Verified 09/02/25 02:35
sumatriptan Allergy Unknown headache Verified 09/02/25 02:35
worsens
amlodipine Allergy rash and Verified 09/02/25 02:35
swelling
amoxicillin Allergy confusion Verified 09/02/25 02:35
cefdinir Allergy Unknown Verified 09/02/25 02:35
diphenhydramine (From Allergy Unknown Verified 09/02/25 02:35
Benadryl)
doxycycline Allergy chest Verified 09/02/25 02:35
heavy/lips
numb/SOB
lisinopril Allergy Itching Verified 09/02/25 02:35
valsartan Allergy tachycardia Verified 09/02/25 02:35
ketorolac (From Toradol) AdvReac Unknown Pharmacy Verified 09/02/25 02:35
to Review
hydralazine AdvReac pressure Verified 09/02/25 02:35
in head
hydrochlorothiazide AdvReac lower K+ Verified 09/02/25 02:35
spironolactone AdvReac high BP Verified 09/02/25 02:35
Home Medications
valacyclovir 500 mg tablet (Valtrex) 500 mg PO DAILY Infection 04/22/10
lorazepam 1 mg tablet 1 mg PO BID PRN ANXIETY 08/09/18
famotidine 20 mg tablet 20 mg PO BID Gastrointestinal Issue 10/19/18
nebivolol 2.5 mg tablet 1.25 mg PO HS Blood Pressure 11/01/21
albuterol sulfate 90 mcg/actuation aerosol inhaler 2 puff inhalation R Q4 PRN SOB/WHEEZING 11/18/23
vibegron 75 mg tablet (Gemtesa) 75 mg PO DAILY 09/02/25
Review of Systems
-
History Source: Patient
A 12 point ROS was completed and negative except as noted: Yes
Constitutional: Reports Fever, Fatigue and Chills
Respiratory: Denies Cough or Trouble Breathing
Cardiac: Denies Chest Pain or Palpitations
Abdomen/GI: Denies Nausea, Vomiting or Diarrhea
: Reports Suprapubic Tube and Other (Bilateral flank pain. Suprapubic pain / spasms.)
Musculoskeletal: Denies Joint Pain or Edema
Neurological: Denies Dizzy or Headache
Psych: Reports Depression; Denies Anxiety
Physical Exam
Vital Signs
Vital Signs
Temp Pulse Resp BP Pulse Ox
98.6 F 77 18 135/82 98
09/02/25 06:49 09/02/25 06:49 09/02/25 06:49 09/02/25 06:49 09/02/25 06:49
Physical Exam
General: Other (59y M in no acute distress.)
HEENT: Moist mucous membranes and PERRLA
Respiratory: Clear; No Wheezes, Rales or Rhonchi
Cardiac: S1/S2 and Regular Rhythm; No Murmur
GI: Soft, Non Tender, Non Distended and Normal Bowel Sounds
Genito-urinary: Other (Suprapubic tube in place without surrounding erythema, discharge, bleeding, etc.)
Musculoskeletal: No Clubbing, No Cyanosis and No Edema
Neuro: AO x 3
Laboratory Results
-
09/02/25 03:34
09/02/25 03:34
Laboratory Results
Lactic Acid Cancelled 09/02/25 07:15
Total Bilirubin 2.0 mg/dl (0.2-1.3) H 09/02/25 03:34
AST 18 U/L (17-59) 09/02/25 03:34
ALT 27 U/L (0-50) 09/02/25 03:34
Alkaline Phosphatase 46 U/L (38-126) 09/02/25 03:34
Impression/Plan
-
A/P: Patient is a 59y M with PMH significant for neurogenic bladder with chronic suprapubic catheter who presents to ED complaining of bilateral flank pain, bladder spasms and fevers / chills at home.
CAUTI
Sepsis secondary to the above
- Admit for further evaluation and treatment.
- Patient presents with tachycardia, leukocytosis and UA / symptoms suggestive of infection.
- Also had measured temp at home to 102 degrees.
- IV abx with meropenem for now based on significant allergy profile.
- Follow-up culture data and adjust as able.
- ID consulted for additional recommendations.
- Supportive care, follow fever curve.
Neurogenic Bladder
Chronic Indwelling Suprapubic Catheter
- Last catheter change was 08/19 at [facility]. Catheter re-positioned at [facility] about one week ago.
- Appears to be functioning appropriately at present.
- CT shows catheter well-positioned and bladder diffusely thickened / inflamed consistent with infection.
- Continue Gemtesa for bladder spasms.
- Patient is followed by Dr. Ja Bird at [facility].
Benign Hypertension
- Stable. Continue nebivolol.
Lung Disease
- Unclear diagnosis here. No prior smoking. ? pulmonary sarcoid by external med record.
- Not on any chronic medications other than PRN Xopenex MDI.
- Follow for any new issues or complaints.
Anxiety / Depression
- Stable. Continue lorazepam PRN.
DVT Prophylaxis: Lovenox
Code Status: Full
--- NOTE | 2025-09-02 07:58 | W.PN.HOSP.TC ---
Today's Communication/Plan
-
cont IV abx
follow cultures
pain control
Assessment / Plan
Assessment / Plan
Physical Exam
General: no acute distress, appears comfortable at this time.
HEENT: Moist mucous membranes and PERRLA
Respiratory: Clear; No Wheezes, Rales or Rhonchi
Cardiac: S1/S2 and Regular Rhythm; No Murmur
GI: Soft, Non Tender, Non Distended and Normal Bowel Sounds
Genito-urinary: Suprapubic tube in place without surrounding erythema, discharge, or bleeding
Musculoskeletal: No Clubbing, No Cyanosis and No Edema
Neuro: AO x 3 conversant coherent
A/P: Patient is a 59y M with PMH significant for neurogenic bladder with chronic suprapubic catheter who presents to ED complaining of bilateral flank pain, bladder spasms and fevers / chills at home.
CAUTI
Possible Sepsis POA (fever, leukocytosis, though fever is reported at home not seen here)
- Patient presents with tachycardia, leukocytosis and UA / symptoms suggestive of infection.
- Also had measured temp at home to 102 degrees.
- IV abx with meropenem for now based on significant allergy profile.
- Follow-up culture data and adjust as able.
- ID consulted for additional recommendations.
- Supportive care, follow fever curve.
Neurogenic Bladder
Chronic Indwelling Suprapubic Catheter
- Last catheter change was 08/19 at [facility]. Catheter re-positioned at [facility] about one week ago.
- Appears to be functioning appropriately at present.
- CT shows catheter well-positioned and bladder diffusely thickened / inflamed consistent with infection.
- Continue Gemtesa for bladder spasms.
- Patient is followed by Dr. Ja Bird at [facility].
Benign Hypertension
- Stable. Continue nebivolol.
Lung Disease
- Unclear diagnosis here. No prior smoking. ? pulmonary sarcoid by external med record.
- Not on any chronic medications other than PRN Xopenex MDI.
- Follow for any new issues or complaints.
Anxiety / Depression
- Stable. Continue lorazepam PRN.
DVT Prophylaxis: Lovenox
Code Status: Full
I spent a total of 40 minutes with the patient or on the floor. More than 50% of this time involved counseling and coordination of care.
Anticipated Discharge: 24 - 48 hours
Subjective/Interval History
-
Date of Service: September 02, 2025
Seen and examined at bedside in no acute distress sitting up comfortably in bed. Overall notes improvement since start IV abx, b/l flank pain persists but tolerable.
Objective Data
-
Labs:
Laboratory Results
09/02/25
03:34
WBC 14.2 H
Hgb 14.6
Hct 40.9
Plt Count 172
Sodium 137
Potassium 4.1
Chloride 106
Carbon Dioxide 24
BUN 9
Creatinine 0.9
Glucose 117 H
Calcium 9.3
Total Bilirubin 2.0 H
AST 18
ALT 27
Alkaline Phosphatase 46
Vital Signs:
Vital Signs
Temp Pulse Resp BP Pulse Ox
98.6 F 77 18 135/82 98
09/02/25 06:49 09/02/25 06:49 09/02/25 06:49 09/02/25 06:49 09/02/25 06:49
--- NOTE | 2025-09-02 09:51 | EDCM ---
CM reviewed chart and met with pt bedside in ED. Lives with his SO in 2nd floor apartment, [address] then has elevator access.
Independent in ADLs, personal care and ambulation at baseline. Has chronic suprapubic catheter for past 2 years. He goes to Urology at [place] to have it changed monthly. Other than catheter supplies he does not have any DME in home.
Confirms prescription coverage.
PCP: Lennie Watkins
Pharmacy: [facility] [address]
Anticipate discharge home, no needs. CM will continue to follow for all discharge planning needs.
[2025-09-02 11:35] VITALS: BP 146/98; BMI 28.0
--- NOTE | 2025-09-02 12:10 | TRANSFER ---
Patient arrived from ED via stretcher. OOB with minimum assist from stretcher to bed. VSS. Per patient, he has not receiving blood pressure medications this AM. Patient's girlfriend to bring in his home Nebivolol. Weight obtained. No dentures,
hearing aids, and/or glasses. IV fluids initiated. Suprapubic catheter site assessed--site is clean and dry with no erythema or drainage. Urine draining yellow, into leg bag--leg bag to be changed to standard drainage bag. Admission questions
completed. Skin is CDI. Patient can turn himself. No bed alarm in place. Patient oriented to room. All needs met at this time. Call bean and personal belongings within reach.
[2025-09-02] MEDS: PEPCID 20 MG PO ×2 (12:26→20:12)
[2025-09-02] MEDS: VALTREX 500 MG PO (12:26)
[2025-09-02 15:00] VITALS: BP 131/99
[2025-09-02] MEDS: LOVENOX 40 MG SC (18:32)
[2025-09-02] MEDS: ATIVAN 1 MG PO (20:10)
[2025-09-02] MEDS: STERILE WATER FOR INJECTION 20 ML IV (20:12)
[2025-09-02] MEDS: DETROL LA 4 MG PO (20:58)
[2025-09-02 23:07] VITALS: BP 128/75
[2025-09-03] MEDS: STERILE WATER FOR INJECTION 20 ML IV ×3 (03:25→20:31)
[2025-09-03] MEDS: MERREM 1000 MG IV ×3 (03:25→20:31)
[2025-09-03 07:00] VITALS: BP 119/75
--- NOTE | 2025-09-03 07:45 | W.PN.HOSP.TC ---
Today's Communication/Plan
-
cont empiric abx
follow cultures
Assessment / Plan
Assessment / Plan
Physical Exam
General: no acute distress, appears comfortable at this time.
HEENT: Moist mucous membranes and PERRLA
Respiratory: Clear; No Wheezes, Rales or Rhonchi
Cardiac: S1/S2 and Regular Rhythm; No Murmur
GI: Soft, Non Tender, Non Distended and Normal Bowel Sounds
Genito-urinary: Suprapubic tube in place without surrounding erythema, discharge, or bleeding
Musculoskeletal: No Clubbing, No Cyanosis and No Edema
Neuro: AO x 3 conversant coherent
A/P: Patient is a 59y M with PMH significant for neurogenic bladder with chronic suprapubic catheter who presents to ED complaining of bilateral flank pain, bladder spasms and fevers / chills at home.
CAUTI
Possible Sepsis POA (fever, leukocytosis, though fever is reported at home not seen here)
- Patient presents with tachycardia, leukocytosis and UA / symptoms suggestive of infection.
- Also had measured temp at home to 102 degrees, consistently afebrile during stay here
- IV abx with meropenem for now based on significant allergy profile.
- Follow-up culture data and adjust as able.
- ID consulted appreciated.
Neurogenic Bladder
Chronic Indwelling Suprapubic Catheter
- Last catheter change was 08/19 at [facility]. Catheter re-positioned at [facility] about one week ago.
- Appears to be functioning appropriately at present.
- CT shows catheter well-positioned and bladder diffusely thickened / inflamed consistent with infection.
- Continue Gemtesa for bladder spasms.
- Patient is followed by Dr. Ja Bird at [facility].
Benign Hypertension
- Stable. Continue nebivolol.
Lung Disease
- Unclear diagnosis here. No prior smoking. ? pulmonary sarcoid by external med record.
- Not on any chronic medications other than PRN Xopenex MDI.
- Follow for any new issues or complaints.
Anxiety / Depression
- Stable. Continue lorazepam PRN.
DVT Prophylaxis: Lovenox
Code Status: Full
I spent a total of 37 minutes with the patient or on the floor. More than 50% of this time involved counseling and coordination of care.
Anticipated Discharge: 24 - 48 hours
Subjective/Interval History
-
Date of Service: September 03, 2025
No acute distress, overall reports feeling well, denies new acute issues at this time. pain well controlled at this time. Ambulatory without need for assist device.
Objective Data
-
Labs:
Laboratory Results
09/03/25
06:00
WBC Pending
Hgb Pending
Hct Pending
Plt Count Pending
Sodium Pending
Potassium Pending
Chloride Pending
Carbon Dioxide Pending
BUN Pending
Creatinine Pending
Glucose Pending
Calcium Pending
Vital Signs:
Vital Signs
Temp Pulse Resp BP Pulse Ox
97.6 F 70 16 128/75 95
09/02/25 23:07 09/02/25 23:07 09/02/25 23:07 09/02/25 23:07 09/02/25 23:07
I&O
09/02/25 09/03/25 09/04/25
06:59 06:59 06:59
Intake Total 2640 / 2640
Output Total 950 / 950
Balance 1690 / 1690
[2025-09-03] MEDS: VALTREX 500 MG PO (08:08)
[2025-09-03] MEDS: PEPCID 20 MG PO ×2 (08:08→20:31)
[2025-09-03 08:09] LABS: Hematocrit 36.7 % (39.0-52.0); Hemoglobin 13.0 g/dL (13.0-18.0); Mean Corp Hgb Conc. 35.4 g/dL (33.0-37.0); Mean Corpuscular Volume 91.1 fL (80.0-94.0); Platelet Count 158 10^3/uL (130-400); Red Cell Dist. Width 12.0 % (11.5-14.5)
[2025-09-03 08:38] LABS: Blood Urea Nitrogen 10 mg/dl (9-20); Calcium 8.4 mg/dl (8.4-10.2); Carbon Dioxide 27 mmol/L (22-30); Chloride 109 mmol/L (98-107); Estimated Creatinine Clearance 85 ml/min; Glucose 91 mg/dl (70-99); Magnesium 2.1 mg/dl (1.6-2.3); Potassium 4.2 mmol/L (3.5-5.1); Sodium 139 mmol/L (135-145); eGFR > 60.00
[2025-09-03] MEDS: NON-FORMULARY ITEM 1.25 MG PO (09:36)
--- NOTE | 2025-09-03 11:14 | CM ---
CM reviewed chart, patient seen bedside, discussed consult received for Advance Directive, paperwork provided.
Patient reports hx with Iv antibiotics in past.
Patient reports previously at [facility], d/c home, frustrated he is now admitted back to Hospital.
Care ongoing, CM will continue to follow.
Plan; home, watch for need for IV antibiotics upon d/c.
--- NOTE | 2025-09-03 11:38 | CON.ID ---
Consultation
-
Date/Time Consultation Requested: 09/02/2025 1128
Date/Time Consultation Performed: 09/03/2025 1138
Requesting Provider: Dr. Avalos
Performing Provider: Dr. Campbell
Reason for Consultation: UTI
Chief Complaint / Past History
History of Present Illness
Kimo Nur is a 59-year-old man with a significant past medical history of neurogenic bladder being evaluated at the request of Dr. Avalos regarding suspected urinary tract infection. History is obtained from chart review, along with patient
interview.
Patient has a history of low back pain ultimately requiring back surgery, with complications leading to bladder dysfunction requiring long-term Preston catheter placement and ultimate placement of suprapubic catheter approximately 2 years ago.
Who presents to the emergency room on 09/02 with complaints of headaches, chills, abdominal pain. Foul-smelling urine. The patient reported a dislodged suprapubic catheter approximately 1 week prior which was manipulated and repositioned at [facility]. Additionally, earlier in the month he was treated for suspected urinary tract infection with a 7-day course of linezolid, but notes the smell of his urine did not improve during treatment. The patient has a significant allergy list, and
Infectious Diseases is asked to comment upon further antimicrobial management.
Past History
Additional Past Medical History:
GERD
HTN
HLD
Anxiety/depression
Panic disorder
Sarcoidosis
Migraine
Vertigo
NICO
Neurogenic bladder
Hx UTI
Additional Past Surgical History:
Left knee ACL repair
Jaw implant
Laminectomy
Suprapubic tube placement
Allergy History:
ciprofloxacin (From Cipro) Allergy (Intermediate, Verified 09/02/25 02:35)
Itching/tendon in leg
sulfamethoxazole (From Bactrim) Allergy (Mild, Verified 09/02/25 02:35)
Rash
hydrocodone Allergy (Unknown, Verified 09/02/25 02:35)
Unknown
sumatriptan Allergy (Unknown, Verified 09/02/25 02:35)
headache worsens
amlodipine Allergy (Verified 09/02/25 02:35)
rash and swelling
amoxicillin Allergy (Verified 09/02/25 02:35)
confusion
cefdinir Allergy (Verified 09/02/25 02:35)
Unknown
diphenhydramine (From Benadryl) Allergy (Verified 09/02/25 02:35)
Unknown
doxycycline Allergy (Verified 09/02/25 02:35)
chest heavy/lips numb/SOB
lisinopril Allergy (Verified 09/02/25 02:35)
Itching
valsartan Allergy (Verified 09/02/25 02:35)
tachycardia
ketorolac (From Toradol) Adverse Reaction (Unknown, Verified 09/02/25 02:35)
Pharmacy to Review
hydralazine Adverse Reaction (Verified 09/02/25 02:35)
pressure in head
hydrochlorothiazide Adverse Reaction (Verified 09/02/25 02:35)
lower K+
spironolactone Adverse Reaction (Verified 09/02/25 02:35)
high BP
Medications Reviewed: Yes
Current Antibiotics:
Meropenem 1 gm IV q.8 hours
Valtrex 500 mg p.o. daily
Social History
Tobacco: Non-Smoker
Alcohol: None
Drug: None
Personal: Partner
Living: With Roomate
Employment: Disabled
Family History
Family History: Not Pertinent
Review of Systems
Vital Signs
Temp Pulse Resp BP Pulse Ox
98.1 F 64 18 119/75 97
09/03/25 07:00 09/03/25 07:00 09/03/25 07:00 09/03/25 07:00 09/03/25 07:00
Physical Exam
Physical Exam
Constitutional: No Acute Distress, Comfortable and Non-toxic
Eyes: No Conjunctival Hemorrhage and Sclera Anicteric
Oral: No Thrush and No Ulcers
Cardiovascular: Regular Rate and S1/S2; Negative S3/S4
Pulmonary: Clear; Negative Wheezes, Rales or Rhonchi
Gastrointestinal: Soft, Non Tender and Non Distended
Genito-Urinary: Preston (Suprapubic) and Clear Urine; Negative CVA Tenderness or Hematuria
Extremities: Negative Edema, Cyanosis or Erythema
Neurological: Awake and Alert
Psychological: Calm
Lab / Diagnostic Study Results
09/03/25 07:45
09/03/25 07:45
Abs Immat Gran (auto) 0.1 10^3/uL (0-0.05) H 09/02/25 03:34
Absolute Neuts (auto) 11.5 10^3/uL (1.4-6.5) H 09/02/25 03:34
Absolute Lymphs (auto) 1.5 10^3/uL (1.2-3.4) 09/02/25 03:34
Absolute Monos (auto) 1.0 10^3/uL (0.1-0.6) H 09/02/25 03:34
Absolute Basos (auto) 0.0 10^3/uL (0-0.2) 09/02/25 03:34
Immature Gran % 0.4 % (0-0.5) 09/02/25 03:34
Neutrophils % 80.7 % (42.2-75.2) H 09/02/25 03:34
Lymphocytes % 10.8 % (20.5-51.1) L 09/02/25 03:34
Monocytes % 7.3 % (1.7-9.3) 09/02/25 03:34
Eosinophils % 0.5 % (0-6) 09/02/25 03:34
Basophils % 0.3 % (0-2) 09/02/25 03:34
Lactic Acid Cancelled 09/02/25 07:15
Ur Squamous Epith Cells 0-2 /LPF (Few) 09/02/25 03:34
Microbiology Results
Micro:
09/02/25 03:34 Blood Culture - Preliminary
Blood/Venous No Growth in 24 hours- Final report to follow
09/02/25 03:34 Blood Culture - Preliminary
Blood/Venous No Growth in 24 hours- Final report to follow
09/02/25 03:34 Urine Culture - Pending
Urine
09/02/25 03:34 Influenza Types A & B (INGA) - Final
Nasal Swab Negative for Influenza A & B, NAAT
Negative results must be combined with clinical observations
and patient history.
Nucleic Acid Amplification test (NAAT)performed on the
[employer] platform.
Imaging:
09/02/2025 CT abdomen/pelvis: suprapubic catheter in appropriate position. There is bladder wall thickening with adjacent fat stranding suggestive of cystitis. No evidence of intestinal obstruction, bowel inflammatory process, nephrolithiasis,
hydronephrosis, cholecystitis or abscess formation.
Assessment / Plan
Suspected complicated urinary tract infection
Leukocytosis; resolved
Neurogenic bladder with chronic suprapubic catheter
Significant antibiotic allergy list, including ciprofloxacin, sulfa, beta lactams, doxycycline
GERD
HTN
HLD
Anxiety/depression
Panic disorder
Sarcoidosis
Migraine
Vertigo
NICO
Recommendations:
Continue with current empiric antibiotic therapy.
Await urine culture.
Monitor white count and temperature curve.
Further recommendations as additional data is returned.
[2025-09-03] MEDS: ATIVAN 1 MG PO (14:03)
[2025-09-03 15:00] VITALS: BP 134/81
[2025-09-03] MEDS: LOVENOX 40 MG SC (17:24)
[2025-09-03] MEDS: DETROL LA 4 MG PO (21:19)
[2025-09-03 23:21] VITALS: BP 127/79
[2025-09-04] MEDS: STERILE WATER FOR INJECTION 20 ML IV ×3 (03:43→20:23)
[2025-09-04] MEDS: MERREM 1000 MG IV ×3 (03:43→20:23)
[2025-09-04] MEDS: TYLENOL 650 MG PO (03:55)
[2025-09-04 06:32] LABS: Hematocrit 35.6 % (39.0-52.0); Hemoglobin 12.8 g/dL (13.0-18.0); Mean Corp Hgb Conc. 36.0 g/dL (33.0-37.0); Mean Corpuscular Volume 89.0 fL (80.0-94.0); Platelet Count 164 10^3/uL (130-400); Red Cell Dist. Width 12.0 % (11.5-14.5)
[2025-09-04 07:00] LABS: Blood Urea Nitrogen 13 mg/dl (9-20); Calcium 8.4 mg/dl (8.4-10.2); Carbon Dioxide 25 mmol/L (22-30); Chloride 107 mmol/L (98-107); Estimated Creatinine Clearance 85 ml/min; Glucose 97 mg/dl (70-99); Magnesium 2.1 mg/dl (1.6-2.3); Potassium 4.2 mmol/L (3.5-5.1); Sodium 137 mmol/L (135-145); eGFR > 60.00
--- NOTE | 2025-09-04 07:02 | W.PN.HOSP.TC ---
Today's Communication/Plan
-
cont abx as per ID
Assessment / Plan
Assessment / Plan
Physical Exam
General: no acute distress, appears comfortable at this time.
HEENT: Moist mucous membranes and PERRLA
Respiratory: Clear; No Wheezes, Rales or Rhonchi
Cardiac: S1/S2 and Regular Rhythm; No Murmur
GI: Soft, Non Tender, Non Distended and Normal Bowel Sounds
Genito-urinary: Suprapubic tube in place without surrounding erythema, discharge, or bleeding
Musculoskeletal: No Clubbing, No Cyanosis and No Edema
Neuro: AO x 3 conversant coherent occasional pill rolling tremor noted hands (patient reports as nervous tic started about a year ago) no shuffling gait on ambulation noted.
A/P: Patient is a 59y M with PMH significant for neurogenic bladder with chronic suprapubic catheter who presents to ED complaining of bilateral flank pain, bladder spasms and fevers / chills at home.
CAUTI
Possible Sepsis POA (fever, leukocytosis, though fever is reported at home not seen here)
- Patient presents with tachycardia, leukocytosis and UA / symptoms suggestive of infection.
- Also had measured temp at home to 102 degrees, consistently afebrile during stay here
- IV abx with meropenem for now based on significant allergy profile.
- Urine Cx appreciated Klebsiella w/ resistance to ampicillin, otherwise good sensitivities.
- ID consulted appreciated.
Neurogenic Bladder
Chronic Indwelling Suprapubic Catheter
- Last catheter change was 08/19 at [facility]. Catheter re-positioned at [facility] about one week ago.
- Appears to be functioning appropriately at present.
- CT shows catheter well-positioned and bladder diffusely thickened / inflamed consistent with infection.
- Continue Gemtesa for bladder spasms.
- Patient is followed by Dr. Ja Bird at [facility].
Benign Hypertension
- Stable. Continue nebivolol.
Lung Disease
- Unclear diagnosis here. No prior smoking. ? pulmonary sarcoid by external med record.
- Not on any chronic medications other than PRN Xopenex MDI.
- Follow for any new issues or complaints.
Anxiety / Depression
- Stable. Continue lorazepam PRN.
DVT Prophylaxis: Lovenox
Code Status: Full
Discussed with patient and patient's listed contact significant other Pita
I spent a total of 37 minutes with the patient or on the floor. More than 50% of this time involved counseling and coordination of care.
Anticipated Discharge: 24 - 48 hours
Subjective/Interval History
-
Date of Service: September 04, 2025
no acute distress, ambulatory without need for assist device. Appears comfortable at this time.
Objective Data
-
Labs:
Laboratory Results
09/04/25
05:43
WBC 6.4
Hgb 12.8 L
Hct 35.6 L
Plt Count 164
Sodium 137
Potassium 4.2
Chloride 107
Carbon Dioxide 25
BUN 13
Creatinine 0.9
Glucose 97
Calcium 8.4
Vital Signs:
Vital Signs
Temp Pulse Resp BP Pulse Ox
97.7 F 72 18 127/79 100
09/03/25 23:21 09/03/25 23:21 09/03/25 23:21 09/03/25 23:21 09/03/25 23:21
I&O
09/03/25 09/04/25 09/05/25
06:59 06:59 06:59
Intake Total 2640 / 2640 940 / 1180 240 / 240
Output Total 950 / 950 600 / 600
Balance 1690 / 1690 340 / 580 240 / 240
[2025-09-04 07:30] VITALS: BP 138/94
[2025-09-04] MEDS: PEPCID 20 MG PO ×2 (07:39→20:23)
[2025-09-04] MEDS: VALTREX 500 MG PO (07:39)
[2025-09-04] MEDS: NON-FORMULARY ITEM 1.25 MG PO (09:29)
[2025-09-04] MEDS: ATIVAN 1 MG PO (09:36)
[2025-09-04 15:30] VITALS: BP 142/91
[2025-09-04] MEDS: LOVENOX 40 MG SC (16:39)
[2025-09-04] MEDS: DETROL LA 4 MG PO (21:11)
[2025-09-04 22:43] VITALS: BP 145/89
[2025-09-05] MEDS: MERREM 1000 MG IV ×3 (04:49→19:53)
[2025-09-05] MEDS: STERILE WATER FOR INJECTION 20 ML IV ×3 (04:50→19:53)
[2025-09-05 06:51] LABS: Hematocrit 37.7 % (39.0-52.0); Hemoglobin 13.1 g/dL (13.0-18.0); Mean Corp Hgb Conc. 34.7 g/dL (33.0-37.0); Mean Corpuscular Volume 90.2 fL (80.0-94.0); Platelet Count 186 10^3/uL (130-400); Red Cell Dist. Width 12.0 % (11.5-14.5)
[2025-09-05 07:12] LABS: Blood Urea Nitrogen 14 mg/dl (9-20); Calcium 9.0 mg/dl (8.4-10.2); Carbon Dioxide 28 mmol/L (22-30); Chloride 107 mmol/L (98-107); Estimated Creatinine Clearance 85 ml/min; Glucose 88 mg/dl (70-99); Magnesium 2.2 mg/dl (1.6-2.3); Potassium 4.4 mmol/L (3.5-5.1); Sodium 138 mmol/L (135-145); eGFR > 60.00
[2025-09-05] MEDS: PEPCID 20 MG PO ×2 (07:14→19:53)
[2025-09-05] MEDS: VALTREX 500 MG PO (07:14)
[2025-09-05 07:30] VITALS: BP 139/93
--- NOTE | 2025-09-05 08:51 | W.PN.HOSP.TC ---
Today's Communication/Plan
-
abx as per ID
Assessment / Plan
Assessment / Plan
Physical Exam
General: no acute distress, appears comfortable at this time.
HEENT: Moist mucous membranes and PERRLA
Respiratory: Clear; No Wheezes, Rales or Rhonchi
Cardiac: S1/S2 and Regular Rhythm; No Murmur
GI: Soft, Non Tender, Non Distended and Normal Bowel Sounds
Genito-urinary: Suprapubic tube in place without surrounding erythema, discharge, or bleeding
Musculoskeletal: No Clubbing, No Cyanosis and No Edema
Neuro: AO x 3 conversant coherent occasional pill rolling tremor noted hands (patient reports as nervous tic started about a year ago) no shuffling gait on ambulation noted.
A/P: Patient is a 59y M with PMH significant for neurogenic bladder with chronic suprapubic catheter who presents to ED complaining of bilateral flank pain, bladder spasms and fevers / chills at home.
CAUTI
Possible Sepsis POA (fever, leukocytosis, though fever is reported at home not seen here)
- Patient presents with tachycardia, leukocytosis and UA / symptoms suggestive of infection.
- Also had measured temp at home to 102 degrees, consistently afebrile during stay here
- IV abx with meropenem for now based on significant allergy profile.
- Urine Cx appreciated Klebsiella w/ resistance to ampicillin, otherwise good sensitivities.
- ID consulted appreciated.
Neurogenic Bladder
Chronic Indwelling Suprapubic Catheter
- Last catheter change was 08/19 at [facility]. Catheter re-positioned at [facility] about one week ago.
- Appears to be functioning appropriately at present.
- CT shows catheter well-positioned and bladder diffusely thickened / inflamed consistent with infection.
- Continue Gemtesa for bladder spasms.
- Patient is followed by Dr. Ja Bird at [facility].
Benign Hypertension
- Stable. Continue nebivolol.
Lung Disease
- Unclear diagnosis here. No prior smoking. ? pulmonary sarcoid by external med record.
- Not on any chronic medications other than PRN Xopenex MDI.
- Follow for any new issues or complaints.
Anxiety / Depression
- Stable. Continue lorazepam PRN.
DVT Prophylaxis: Lovenox
Code Status: Full
I spent a total of 37 minutes with the patient or on the floor. More than 50% of this time involved counseling and coordination of care.
Anticipated Discharge: Within 24 hours
Subjective/Interval History
-
Date of Service: September 05, 2025
No acute distress, appears comfortable at this time. Ambulatory without need for assist device.
Objective Data
-
Labs:
Laboratory Results
09/05/25
06:23
WBC 6.3
Hgb 13.1
Hct 37.7 L
Plt Count 186
Sodium 138
Potassium 4.4
Chloride 107
Carbon Dioxide 28
BUN 14
Creatinine 0.9
Glucose 88
Calcium 9.0
Vital Signs:
Vital Signs
Temp Pulse Resp BP Pulse Ox
97.7 F 61 16 145/89 97
09/04/25 22:43 09/04/25 22:43 09/04/25 22:43 09/04/25 22:43 09/04/25 22:43
I&O
09/04/25 09/05/25 09/06/25
06:59 06:59 06:59
Intake Total 940 / 1180 1060 / 1060
Output Total 600 / 600
Balance 340 / 580 1060 / 1060
[2025-09-05] MEDS: NON-FORMULARY ITEM 1.25 MG PO (10:17)
--- NOTE | 2025-09-05 13:45 | W.PN.ID1 ---
Date of Service
Date of Service: September 05, 2025
Today's Communication
Continue meropenem for today.
Assessment / Plan
Suspected complicated urinary tract infection
Leukocytosis; resolved
Neurogenic bladder with chronic suprapubic catheter
Significant antibiotic allergy list, including ciprofloxacin, sulfa, beta lactams, doxycycline
GERD
HTN
HLD
Anxiety/depression
Panic disorder
Sarcoidosis
Migraine
Vertigo
NICO
Recommendations:
Urine culture with Klebsiella oxytoca which is relatively susceptible, but extensive allergy/intolerance list precludes many antibiotics.
Currently doing well and tolerating meropenem (day #5)
Ultimately could likely complete a 10 to 14-day of ertapenem as an outpatient (possibly in the outpatient infusion department). I have reached out to Case management to further investigate.
����������������������������������������������������������
Chief Complaint
-: UTI
Subjective / Review of Systems
Review of Systems: No Fever and No Chills
Vital Signs / Physical Exam
Vital Signs
Vital Signs
Temp Pulse Resp BP Pulse Ox
97.8 F 63 16 139/93 95
09/05/25 07:30 09/05/25 07:30 09/05/25 07:30 09/05/25 07:30 09/05/25 07:30
Physical Exam
Constitutional: No Acute Distress, Comfortable and Non-toxic
Eyes: Sclera Anicteric
Cardiovascular: S1/S2; Negative S3/S4
Pulmonary: Clear; Negative Wheezes or Rales
Gastrointestinal: Soft, Non Tender and Non Distended
Genito-Urinary: Preston (Suprapubic) and Clear Urine; Negative Turbid Urine or Hematuria
Neurological: Awake and Alert
Psychological: Calm
Objective Data
Lab Data
Lab Results
09/05/25 06:23
09/05/25 06:23
Estimated Creat Clear 85 ml/min 09/05/25 06:23
Lactic Acid Cancelled 09/02/25 07:15
Total Bilirubin 2.0 mg/dl (0.2-1.3) H 09/02/25 03:34
AST 18 U/L (17-59) 09/02/25 03:34
ALT 27 U/L (0-50) 09/02/25 03:34
Alkaline Phosphatase 46 U/L (38-126) 09/02/25 03:34
Most recent labs reviewed.
Micro Results:
09/02/25 03:34 Blood Culture - Preliminary
Blood/Venous No Growth in 72 hours- Final report to follow
09/02/25 03:34 Blood Culture - Preliminary
Blood/Venous No Growth in 72 hours- Final report to follow
09/02/25 03:34 Urine Culture - Final
Urine Klebsiella oxytoca
09/02/25 03:34 Influenza Types A & B (INGA) - Final
Nasal Swab Negative for Influenza A & B, NAAT
Negative results must be combined with clinical observations
and patient history.
Nucleic Acid Amplification test (NAAT)performed on the
[employer] platform.
Imaging:
09/02/2025 CT abdomen/pelvis: suprapubic catheter in appropriate position. There is bladder wall thickening with adjacent fat stranding suggestive of cystitis. No evidence of intestinal obstruction, bowel inflammatory process, nephrolithiasis,
hydronephrosis, cholecystitis or abscess formation.
--- NOTE | 2025-09-05 13:50 | CM ---
Dr. Campbell requested for CM to contact outpatient infusion room regarding IV Ertapenem Q24h
SUPRIYA called Natalie in outpatient infusion room, stated that the financial service coord is out today.
Natalie states she will need script from Dr. Campbell as well as Reaction sheet. ?Wed or Thurs
SUPRIYA needs to fax script & reaction sheet (once received) to Natalie at [phone]
PLAN: home, IV antibiotic when set up with outpatient infusion room
[2025-09-05 15:30] VITALS: BP 140/88
[2025-09-05] MEDS: LOVENOX 40 MG SC (17:00)
[2025-09-05] MEDS: ATIVAN 1 MG PO (19:53)
[2025-09-05] MEDS: DETROL LA 4 MG PO (19:55)
[2025-09-05 23:09] VITALS: BP 115/69
[2025-09-06] MEDS: STERILE WATER FOR INJECTION 20 ML IV ×2 (04:37→12:42)
[2025-09-06] MEDS: MERREM 1000 MG IV ×2 (04:37→12:42)
[2025-09-06] MEDS: TYLENOL 650 MG PO ×2 (04:53→22:21)
[2025-09-06 07:00] VITALS: BP 120/81
--- NOTE | 2025-09-06 08:11 | W.PN.HOSP.TC ---
Today's Communication/Plan
-
For discharge tomorrow after midline placement, morning IV abx, and confirmation outpt abx infusion set up
Assessment / Plan
Assessment / Plan
Physical Exam
General: no acute distress, appears comfortable at this time.
HEENT: Moist mucous membranes and PERRLA
Respiratory: Clear; No Wheezes, Rales or Rhonchi
Cardiac: S1/S2 and Regular Rhythm; No Murmur
GI: Soft, Non Tender, Non Distended and Normal Bowel Sounds
Genito-urinary: Suprapubic tube in place without surrounding erythema, discharge, or bleeding
Musculoskeletal: No Clubbing, No Cyanosis and No Edema
Neuro: AO x 3 conversant coherent occasional pill rolling tremor noted hands (patient reports as nervous tic started about a year ago) no shuffling gait on ambulation noted.
A/P: Patient is a 59y M with PMH significant for neurogenic bladder with chronic suprapubic catheter who presents to ED complaining of bilateral flank pain, bladder spasms and fevers / chills at home.
CAUTI
Possible Sepsis POA (fever, leukocytosis, though fever is reported at home not seen here)
- Patient presents with tachycardia, leukocytosis and UA / symptoms suggestive of infection.
- Also had measured temp at home to 102 degrees, consistently afebrile during stay here
- Urine Cx appreciated Klebsiella w/ resistance to ampicillin, otherwise good sensitivities.
- ID consulted appreciated meropenem switched to ertapenem daily dosing plan to cont abx thru 09/14, outpt infusion office set up, midline
Neurogenic Bladder
Chronic Indwelling Suprapubic Catheter
- Last catheter change was 08/19 at [facility]. Catheter re-positioned at [facility] about one week ago.
- Appears to be functioning appropriately at present.
- CT shows catheter well-positioned and bladder diffusely thickened / inflamed consistent with infection.
- Continue Gemtesa for bladder spasms.
- Patient is followed by Dr. Ja Bird at [facility].
Benign Hypertension
- Stable. Continue nebivolol.
Lung Disease
- Unclear diagnosis here. No prior smoking. ? pulmonary sarcoid by external med record.
- Not on any chronic medications other than PRN Xopenex MDI.
- Follow for any new issues or complaints.
Anxiety / Depression
- Stable. Continue lorazepam PRN.
DVT Prophylaxis: Lovenox
Code Status: Full
I spent a total of 37 minutes with the patient or on the floor. More than 50% of this time involved counseling and coordination of care.
Anticipated Discharge: Within 24 hours
Subjective/Interval History
-
Date of Service: September 06, 2025
No acute distress, appears well, denies new acute issues.
Objective Data
-
Vital Signs:
Vital Signs
Temp Pulse Resp BP Pulse Ox
97.7 F 66 20 115/69 96
09/05/25 23:09 09/05/25 23:09 09/05/25 23:09 09/05/25 23:09 09/05/25 23:09
I&O
09/05/25 09/06/25 09/07/25
06:59 06:59 06:59
Intake Total 1060 / 1060 1879
Balance 1060 / 1060 1879
[2025-09-06] MEDS: NON-FORMULARY ITEM 1.25 MG PO (10:00)
[2025-09-06] MEDS: VALTREX 500 MG PO (10:07)
[2025-09-06] MEDS: PEPCID PO (10:08)
[2025-09-06 10:17] VITALS: BP 149/96
[2025-09-06] MEDS: PEPCID 20 MG PO ×2 (10:21→19:19)
[2025-09-06] MEDS: FLUSH (NSS) 1 FLUSH IV ×2 (12:42→14:14)
[2025-09-06] MEDS: ATIVAN 1 MG PO (13:22)
--- NOTE | 2025-09-06 13:49 | W.PN.ID1 ---
Date of Service
Date of Service: September 06, 2025
Today's Communication
Continue antibiotics. Changed to ertapenem.
Assessment / Plan
Suspected complicated urinary tract infection
Leukocytosis; resolved
Neurogenic bladder with chronic suprapubic catheter
Significant antibiotic allergy list, including ciprofloxacin, sulfa, beta lactams, doxycycline
GERD
HTN
HLD
Anxiety/depression
Panic disorder
Sarcoidosis
Migraine
Vertigo
NICO
Recommendations:
Urine culture with Klebsiella oxytoca which is relatively susceptible, but extensive allergy/intolerance list precludes many antibiotics.
Currently doing well and tolerating meropenem (day #6)
Change to ertapenem.
Continue abx through 09/14/2025
Script placed on paper chart. Midline before D/C
����������������������������������������������������������
Chief Complaint
-: UTI
Subjective / Review of Systems
Review of Systems: No Fever and No Chills
Vital Signs / Physical Exam
Vital Signs
Vital Signs
Temp Pulse Resp BP Pulse Ox
97.6 F 72 16 149/96 96
09/06/25 07:00 09/06/25 10:17 09/06/25 07:00 09/06/25 10:17 09/06/25 07:00
Physical Exam
Constitutional: No Acute Distress, Comfortable and Non-toxic
Eyes: Sclera Anicteric
Pulmonary: Non Labored
Gastrointestinal: Non Distended
Genito-Urinary: Preston (Suprapubic) and Clear Urine; Negative Turbid Urine or Hematuria
Neurological: Awake and Alert
Psychological: Calm
Objective Data
Lab Data
Lab Results
09/05/25 06:23
09/05/25 06:23
Estimated Creat Clear 85 ml/min 09/05/25 06:23
Lactic Acid Cancelled 09/02/25 07:15
Total Bilirubin 2.0 mg/dl (0.2-1.3) H 09/02/25 03:34
AST 18 U/L (17-59) 09/02/25 03:34
ALT 27 U/L (0-50) 09/02/25 03:34
Alkaline Phosphatase 46 U/L (38-126) 09/02/25 03:34
Most recent labs reviewed.
Micro Results:
09/02/25 03:34 Blood Culture - Preliminary
Blood/Venous No Growth in 4 days- Final report to follow
09/02/25 03:34 Blood Culture - Preliminary
Blood/Venous No Growth in 4 days- Final report to follow
09/02/25 03:34 Urine Culture - Final
Urine Klebsiella oxytoca
09/02/25 03:34 Influenza Types A & B (INGA) - Final
Nasal Swab Negative for Influenza A & B, NAAT
Negative results must be combined with clinical observations
and patient history.
Nucleic Acid Amplification test (NAAT)performed on the
[employer] platform.
Imaging:
09/02/2025 CT abdomen/pelvis: suprapubic catheter in appropriate position. There is bladder wall thickening with adjacent fat stranding suggestive of cystitis. No evidence of intestinal obstruction, bowel inflammatory process, nephrolithiasis,
hydronephrosis, cholecystitis or abscess formation.
[2025-09-06] MEDS: INVANZ 60 MG IV (14:13)
[2025-09-06 14:53] VITALS: BP 128/84
--- NOTE | 2025-09-06 15:38 | CM ---
CM reviewed chart, patient seen bedside.
Script for medication [facility]ed to [facility] [phone], office will reach out to ID office to obtain reaction sheet.
CM will contact Natalie from [facility] in the morning to confirm appointment time set up, plan for d/c tomorrow with first appt at [facility] center .
CM discussed patient will need to go to ER over weekend for infusion.
CM will continue to follow for all d/c needs.
Plan; d.c tomorrow with set up at [facility]
[2025-09-06] MEDS: LOVENOX 40 MG SC (18:35)
[2025-09-06] MEDS: DETROL LA 4 MG PO (21:01)
[2025-09-06 23:07] VITALS: BP 110/66
--- NOTE | 2025-09-07 02:29 | DOWNTIME ---
There was a [employer] Downtime on 09/07/2025 from 0100 to 09/07/2025 at 0215. Downtime documentation of patient's care, including medication administrations, has been reconciled in the electronic record per guidelines. Refer to the
patient's paper chart under the miscellaneous tab to see printed paper medication records and downtime forms.
[2025-09-07 07:25] VITALS: BP 146/93
[2025-09-07] MEDS: VALTREX 500 MG PO (08:25)
[2025-09-07] MEDS: PEPCID 20 MG PO (08:25)
[2025-09-07] MEDS: INVANZ 60 MG IV (09:00)
[2025-09-07] MEDS: NON-FORMULARY ITEM 1.25 MG PO (09:11)
--- NOTE | 2025-09-07 10:01 | CM ---
Addendum entered by Jacinda Aponte 09/07/25 11:36:
IMM verbally reviewed, provided with copy, placed in chart.
Original Note:
CM reviewed chart, patient seen bedside, for discharge today.
CM spoke with [facility], confirmed patient accepted, scheduled time 10:45 starting tomorrow 10:45 a.m.
Patient provided with [facility] number, aware they will be calling patient today.
Patient confirms transportation home.
CM will continue to follow for all d.c planning needs.
Plan; home with outpatient infusion center, scheduled tomorrow 09/08 10:45 a.m.
--- NOTE | 2025-09-07 10:31 | W.PN.HOSP.TC ---
Today's Communication/Plan
-
dc home
IV abx
midline placed
Assessment / Plan
Assessment / Plan
Physical Exam
General: no acute distress, appears comfortable at this time.
HEENT: Moist mucous membranes
Respiratory: Clear; No Wheezes, Rales or Rhonchi
Cardiac: S1/S2 and Regular Rhythm; No Murmur
GI: Soft, Non Tender, Non Distended and Normal Bowel Sounds
Genito-urinary: Suprapubic tube in place without surrounding erythema, discharge, or bleeding
Musculoskeletal: No Clubbing, No Cyanosis and No Edema
Neuro: AO x 3 conversant coherent
A/P: Patient is a 59y M with PMH significant for neurogenic bladder with chronic suprapubic catheter who presents to ED complaining of bilateral flank pain, bladder spasms and fevers / chills at home.
CAUTI
Possible Sepsis POA (fever, leukocytosis, though fever is reported at home not seen here)
- Patient presents with tachycardia, leukocytosis and UA / symptoms suggestive of infection.
- Also had measured temp at home to 102 degrees, consistently afebrile during stay here
- Urine Cx appreciated Klebsiella w/ resistance to ampicillin, otherwise good sensitivities.
- ID consulted appreciated meropenem switched to ertapenem daily dosing plan to cont abx thru 09/14, outpt infusion office set up, midline
Neurogenic Bladder
Chronic Indwelling Suprapubic Catheter
- Last catheter change was 08/19 at [facility]. Catheter re-positioned at [facility] about one week ago.
- Appears to be functioning appropriately at present.
- CT shows catheter well-positioned and bladder diffusely thickened / inflamed consistent with infection.
- Continue Gemtesa for bladder spasms.
- Patient is followed by Dr. Ja Bird at [facility].
Benign Hypertension
- Stable. Continue nebivolol.
Lung Disease
- Unclear diagnosis here. No prior smoking. ? pulmonary sarcoid by external med record.
- Not on any chronic medications other than PRN Xopenex MDI.
- Follow for any new issues or complaints.
Anxiety / Depression
- Stable. Continue lorazepam PRN.
DVT Prophylaxis: Lovenox
Code Status: Full
More than 30 minutes spent in discharge including
Final examination of the patient
Summarizing hospital stay
Instructions for continuing care to all relevant caregivers
Preparation of discharge records, prescriptions, and referral forms
Total time spent (in minutes): 55
Anticipated Discharge: Today
Subjective/Interval History
-
Date of Service: September 07, 2025
feeling better
no complaints
Objective Data
-
Vital Signs:
Vital Signs
Temp Pulse Resp BP Pulse Ox
98.0 F 62 18 146/93 97
09/07/25 07:25 09/07/25 07:25 09/07/25 07:25 09/07/25 07:25 09/07/25 07:25
I&O
09/06/25 09/07/25 09/08/25
06:59 06:59 06:59
Intake Total 1879 540 / 540
Output Total 900 / 900
Balance 1879 -360 / -360
--- NOTE | 2025-09-07 11:02 | W.DCSUMMARY ---
Discharge Summary
Discharge Data
Date of Admission: 09/02/25
Date of Discharge: 09/07/25
-
Pending Results: No
Hospital Course
59y M with PMH significant for neurogenic bladder with chronic suprapubic catheter who presents to ED complaining of bilateral flank pain, bladder spasms and fevers / chills at home. Patient was eval by infectious disease during hospitalization.
Urine culture appreciated Klebsiella with resistance of multiple antibiotics. Patient was started on IV ertapenem. CT showed catheter malposition and bladder diffusely thickened/inflamed consistent with infection. Patient follows with Dr. Peres
Pelon at [facility] recommended follow-up with his primary urologist. Patient received midline transition to continue antibiotics till 09/14/2025 as outpatient infusion center. All patient questions were answered he was discharged home.
Discharge Plan
-
Patient Disposition: Home (Routine Discharge)
Discharge Diagnosis/Procedures: complicated urinary tract infection
Leukocytosis
Condition: Fair
Diet: Regular
Activity: As tolerated
Driving Restrictions: As prior to admission
Referrals:
SOLE VILLA DO [Family Provider, Family Practice] - in less than 1 week
Prescriptions:
New
Ertapenem [Invanz] 1000 MG
0.9% Sodium Chloride [Nss] 50 ML
120 mls/hr IV Q24H
Ordered By: Trever Houston MD
Last Taken: 09/07/25 09:00 60 mls
Continued
valacyclovir [Valtrex] 500 MG tablet
500 mg PO DAILY
lorazepam 1 MG tablet
1 mg PO BID PRN (Reason: ANXIETY)
Patient Comments:
11/18/2023: LAST FILLED 10/06/23, 60 TABS FOR 30 DAYS FROM [facility]#[id number]
famotidine 20 MG tablet
20 mg PO BID
nebivolol 2.5 MG tablet
1.25 mg PO HS
albuterol sulfate 90 mcg/actuation HFA aerosol inhaler
2 puff INHALATION R Q4 PRN (Reason: SOB/WHEEZING)
Gemtesa 75 mg Tablet
75 mg PO HS
Discharge Orders:
Discharge Patient (As Directed); Ordered 09/07/25
Ordered By: Trever Houston
Discharge Date and Time
Discharge Date/Time: 09/07/25 11:55
Print Language: MACANESE
--- NOTE | 2025-09-07 11:35 | W.PN.ID1 ---
Date of Service
Date of Service: September 07, 2025
Today's Communication
Continue antibiotics.
Assessment / Plan
Suspected complicated urinary tract infection
Leukocytosis; resolved
Neurogenic bladder with chronic suprapubic catheter
Significant antibiotic allergy list, including ciprofloxacin, sulfa, beta lactams, doxycycline
GERD
HTN
HLD
Anxiety/depression
Panic disorder
Sarcoidosis
Migraine
Vertigo
NICO
Recommendations:
Urine culture with Klebsiella oxytoca which is relatively susceptible, but extensive allergy/intolerance list precludes many antibiotics.
Tolerating carbapenem (d#7)
Continue ertapenem through 09/14/2025. Patient to complete course of therapy in [facility]
Patient advised that he needs follow-up with Allergy/immunology to determine what antibiotics he can and can use.
Additionally, counseled that he will need outpatient follow-up with his Urologist.
����������������������������������������������������������
Chief Complaint
-: UTI
Subjective / Review of Systems
Review of Systems: No Fever and No Chills
Vital Signs / Physical Exam
Vital Signs
Vital Signs
Temp Pulse Resp BP Pulse Ox
98.0 F 62 18 146/93 97
09/07/25 07:25 09/07/25 07:25 09/07/25 07:25 09/07/25 07:25 09/07/25 07:25
Physical Exam
Constitutional: No Acute Distress, Comfortable and Non-toxic
Eyes: Sclera Anicteric
Pulmonary: Non Labored
Gastrointestinal: Non Distended
Genito-Urinary: Preston (Suprapubic)
Neurological: Awake and Alert
Psychological: Calm
Lines: PICC (RUE)
Objective Data
Lab Data
Lab Results
09/05/25 06:23
09/05/25 06:23
Estimated Creat Clear 85 ml/min 09/05/25 06:23
Lactic Acid Cancelled 09/02/25 07:15
Total Bilirubin 2.0 mg/dl (0.2-1.3) H 09/02/25 03:34
AST 18 U/L (17-59) 09/02/25 03:34
ALT 27 U/L (0-50) 09/02/25 03:34
Alkaline Phosphatase 46 U/L (38-126) 09/02/25 03:34
Most recent labs reviewed.
Micro Results:
09/02/25 03:34 Blood Culture - Final
Blood/Venous No Growth - Final Report
09/02/25 03:34 Blood Culture - Final
Blood/Venous No Growth - Final Report
09/02/25 03:34 Urine Culture - Final
Urine Klebsiella oxytoca
09/02/25 03:34 Influenza Types A & B (INGA) - Final
Nasal Swab Negative for Influenza A & B, NAAT
Negative results must be combined with clinical observations
and patient history.
Nucleic Acid Amplification test (NAAT)performed on the
[employer] platform.
Urine Culture Final 09/04/25-917
CC: Greater than 100,000 CFU/ML Klebsiella oxytoca
Organism 1 Klebsiella oxytoca
1. Klebsiella oxytoca
M.I.C. RX
--------- ---
Amoxicillin/Potas. Clavulanate <=8/4 S
Ampicillin >16 R
Ampicillin/Sulbactam 8/4 S
Aztreonam <=4 S
Cefazolin <=2 S
Ertapenem <=0.5 S
Ciprofloxacin <=0.25 S
Gentamicin <=2 S
Meropenem <=1 S
Nitrofurantoin-Urine Only <=32 S
Piperacillin/Tazobactam <=8 S
Tetracycline <=4 S
Tobramycin <=2 S
Trimethoprim/Sulfamethoxazole <=2/38 S
Imaging:
09/02/2025 CT abdomen/pelvis: suprapubic catheter in appropriate position. There is bladder wall thickening with adjacent fat stranding suggestive of cystitis. No evidence of intestinal obstruction, bowel inflammatory process, nephrolithiasis,
hydronephrosis, cholecystitis or abscess formation.
[2025-09-07 11:43] VITALS: BP 159/100
== END 2025-09-07 11:55 | disposition home or self-care (01) | DRG 698 ==
LOC: 4 WEST ACU 07:12
PROVIDERS: Internal Medicine; Physician Assistant; ADMITTING PHYSICIAN Hospitalist; ATTENDING PHYSICIAN Hospitalist; CONSULT PHYSICIAN Internal Medicine Infectious Disease; EMERGENCY PHYSICIAN Student in an Organized Health Care Education/Training Program; FAMILY PHYSICIAN Student in an Organized Health Care Education/Training Program
DX: T83.510A Infection and inflammatory reaction due to cystostomy catheter, initial encounter (principal); A41.9 Sepsis, unspecified organism; N39.0 Urinary tract infection, site not specified; Y73.2 Prosthetic and other implants, materials and accessory gastroenterology and urology devices associated with adverse incidents; N32.89 Other specified disorders of bladder; F41.0 Panic disorder [episodic paroxysmal anxiety]; F32.A Depression, unspecified; I10 Essential (primary) hypertension; N40.0 Benign prostatic hyperplasia without lower urinary tract symptoms; Z88.0 Allergy status to penicillin; Z88.1 Allergy status to other antibiotic agents; Z88.8 Allergy status to other drugs, medicaments and biological substances; D86.0 Sarcoidosis of lung; E78.00 Pure hypercholesterolemia, unspecified; G47.33 Obstructive sleep apnea (adult) (pediatric); K21.9 Gastro-esophageal reflux disease without esophagitis; Z79.899 Other long term (current) drug therapy; Z87.440 Personal history of urinary (tract) infections; Z87.820 Personal history of traumatic brain injury; Z93.59 Other cystostomy status; Z11.52 Encounter for screening for COVID-19
CPT/HCPCS: 74177; 80048; 80053; 81003; 81015; 83605; 83735; 84100; 85025; 85027; 87040; 87077; 87086; 87186; 87502; 87811; 96361; 96374; 99284; J1335; J2185; Q9967

== ENCOUNTER 2025-09-08 17:58 | Emergency (ER) | payer MEDICARE, OTHER, SELFPAY ==
[2025-09-08 18:02] VITALS: BP 170/110
[2025-09-08 19:09] VITALS: BMI 27.7
[2025-09-08 19:14] VITALS: BP 150/93
--- NOTE | 2025-09-08 19:52 | ED.GENMED ---
History of Present Illness
General
Chief Complaint: Chest Pain
Source: patient
Exam Limitations: none
Time Seen by Provider: 09/08/25 19:34
Nursing documentation reviewed up to this point in time: agreed with
History of Present Illness
History of Present Illness:
Patient currently receiving IV antibiotics via midline infusion, after being discharged the hospital after treatment for complicated UTI, presents to ED secondary to sudden onset of mid sternal chest pain, while he was at home this afternoon.
Patient reports 2 separate episodes of sharp pain, each lasting seconds to a minute, with spontaneous resolution. At the time of evaluation ED, patient is without any chest pain. Denies fever or chills. Denies shortness of breath. Denies nausea
or vomiting. Denies dizziness. Denies previous history of similar chest pain. However, patient does state that he has been evaluated by official greeter in the past secondary to nonspecific chest pain. Denies family history of heart disease. Denies
back pain. Denies leg pain or swelling. Overall, patient states that he does not feel 'great', as he is receiving antibiotics.
Past History
Past History
ED Past Medical History: GERD, HTN, Hypercholesterolemia, Psychiatric (Anxiety and Depression Panic disorder) and Other (sarcoidosis-in remission per pt 04/2017, 'aneurisms of carotids', concussion Sep 2016, migraines, Vertigo, Herniated disc, Sleep
apnea, Hiatal hernia, UTI, )
ED Past Surgical History: Orthopedic (ACL left knee repair, Jaw implants Laminectomy) and Urological (TURP, atonic bladder, suprapubic tube)
Patient has exhibited threatening behavior?: No
Social History
Tobacco: Non-smoker
Alcohol: None
Drug: None
Personal: Partner
Living: with roommate
Employment: Disabled
Family History
Family History: CAD and Other
Review of Systems
Review of Systems
Allergies reviewed?: Yes
All Other Systems: ROS reviewed and negative except as documented in HPI and ROS
Constitutional: Reports no symptoms
Respiratory: Reports no symptoms
Cardiac: Reports chest pain
ABD/GI: Reports no symptoms
Musculoskeletal: Reports no symptoms
Skin: Reports no symptoms
Neurological: Reports no symptoms
Phy Exam
Physical Exam
Physical Exam:
Physical Exam
General: no apparent distress, not acutely ill. afebrile
Head: nc/at. eomi
Neck: supple. normal range of motion.
Heart: s1/s2 regular rate and rhythm
Lungs: no acute respiratory distress. clear bilaterally
Abdomen: normal bowel sounds. no distention. mild epigastric tenderness to palpation
Neuro: alert and oriented x 3. no focal neurological deficits
Skin: no rash
Psychiatric: well kept. interactive and cooperative
Extremities: no edema. no calf tenderness.
Scores
Heart Score for Chest Pain Patients
STEMI patient?: Not applicable
Course
Orders/Labs/Results
Orders:
Orders
09/08/25 17:59
EKG [Electrocardiogram (*1)] Urgent
Reason for Study: Chest Pain
EKG- Treatment ONCE
09/08/25 19:52
CR Chest - 2 Views Urgent
Comment:
Reason For Exam: chest pain
US Abdomen Limited Urgent
Reason For Exam: epigastric/RUQ pain
09/08/25 21:08
Complete Blood Count/With Diff Urgent
Comprehensive Metabolic Panel Urgent
Lipase Urgent
Magnesium Urgent
Troponin I Urgent
09/08/25 22:32
EKG- Treatment ONCE
09/08/25 23:08
D-Dimer Urgent
09/09/25 00:00
Electrocardiogram (*1) Urgent
Reason for Study: Chest Pain
09/09/25 00:02
Troponin I Urgent
Abnormal Lab Results
09/08/25
21:08
RBC 4.13 L 10^6/uL
(4.70-6.10)
Hgb 12.7 L g/dL
(13.0-18.0)
Hct 37.1 L %
(39.0-52.0)
09/08/25 21:08
09/08/25 21:08
Vital Signs
Initial and Last Documented VS:
Initial Vital Signs
Temp Pulse Resp BP Pulse Ox
98.0 F 69 16 170/110 98
09/08/25 18:02 09/08/25 18:02 09/08/25 18:02 09/08/25 18:02 09/08/25 18:02
Last Documented Vital Signs
Temp Pulse Resp BP Pulse Ox
98.1 F 60 21 157/97 97
09/08/25 19:17 09/09/25 01:32 09/09/25 01:32 09/09/25 01:31 09/09/25 01:32
MDM/Problems Addressed
MDM/Problems Addressed:
Troponin repeated secondary to minimally elevated troponin on initial blood work. Ultrasound report reviewed and discussed with patient. Patient presenting symptoms less likely ACS, but likely nonspecific chest pain versus gastritis, with
differential including potential biliary disease. Nonetheless, patient remains asymptomatic during extended course of observation. As such, decision made to discharge patient home at this time, with recommendation to follow-up PCP/cardiology for
an outpatient evaluation, or return to ED with recurrent symptoms. Patient expresses understanding at time of discharge.
*Pulse Oximetry
SaO2: 96
Oxygen Mode of Delivery: Room air
Patient hypoxic: no
*EKG
Interpreted by ED Provider?: Yes
EKG Intrepretation Date: 09/08/25
Heart Rate: 67
Rate: normal
Rhythm: sinus
[place]: normal axis
Interval: normal interval
*Critical Care Note
Total Time (30-74mins, 75-104mins- exclusive of procedures): Not Applicable
ED Attending Note
-
Portions of this chart may have been created with voice recognition software.� Occasional wrong word or��sound alike� substitutions may have occurred due to the inherent limitations of voice recognition software.
Discharge Plan
Departure
Patient Disposition: Home (Routine Discharge)
Date of Disposition: 09/09/25
Time of Disposition: 01:29
Patient with high blood pressure during this ER visit?: Yes
Condition: Good
Discharge Problem:
Chest pain
Instructions: Chest pain (DC)
Prescriptions:
No Action
valacyclovir [Valtrex] 500 MG tablet
500 mg PO DAILY
lorazepam 1 MG tablet
1 mg PO BID PRN (Reason: ANXIETY)
Patient Comments:
11/18/2023: LAST FILLED 10/06/23, 60 TABS FOR 30 DAYS FROM [facility]#[id number]
famotidine 20 MG tablet
20 mg PO BID
nebivolol 2.5 MG tablet
1.25 mg PO DAILY
albuterol sulfate 90 mcg/actuation HFA aerosol inhaler
2 puff INHALATION R Q4 PRN (Reason: SOB/WHEEZING)
Gemtesa 75 mg Tablet
75 mg PO HS
Ertapenem [Invanz] 1000 MG
0.9% Sodium Chloride [Nss] 50 ML
120 mls/hr IV Q24H
Ordered By: Trever Houston MD
Last Taken: Unknown
cranberry
1 tab PO HS
Referrals:
SOLE VILLA DO [Family Provider, Family Practice]
Activity Restrictions/Additional Instructions:
As discussed, please follow-up with your primary care physician and/or official greeter for further evaluation and treatment.
Interventions
Interventions:
*Risk Screen - Suicide Last Done: 09/08/25 18:02
*General Assessment Last Done: 09/08/25 19:10
*Neglect/Abuse Screening Last Done: 09/08/25 18:02
*ED- Fall Risk Assessment Last Done: 09/08/25 19:10
*ED COVID-19 Vaccine History Last Done: 09/08/25 19:10
*ED Influenza Vaccine History Last Done: 09/08/25 19:10
*Nursing Disposition Last Done: 09/09/25 01:37
ED- Cardiac Assessment Last Done: 09/08/25 19:18
Discharge Date and Time
Discharge Date/Time: 09/09/25 01:38
Print Language: SINHALA
[2025-09-08 21:15] LABS: Hematocrit 37.1 % (39.0-52.0); Hemoglobin 12.7 g/dL (13.0-18.0); Mean Corp Hgb Conc. 34.2 g/dL (33.0-37.0); Mean Corpuscular Volume 89.8 fL (80.0-94.0); Nucleated Red Blood Cells % 0 % (-); Platelet Count 221 10^3/uL (130-400); Red Cell Dist. Width 12.3 % (11.5-14.5)
[2025-09-08 21:39] LABS: ALT (SGPT) 40 U/L (0-50); AST (SGOT) 28 U/L (17-59); Albumin 3.8 g/dl (3.5-5.0); Alkaline Phosphatase 76 U/L (38-126); Blood Urea Nitrogen 14 mg/dl (9-20); Calcium 8.7 mg/dl (8.4-10.2); Carbon Dioxide 26 mmol/L (22-30); Chloride 106 mmol/L (98-107); Estimated Creatinine Clearance 95 ml/min; Glucose 99 mg/dl (70-99); Lipase 83 U/L (23-300); Magnesium 2.1 mg/dl (1.6-2.3); Potassium 4.4 mmol/L (3.5-5.1); Sodium 137 mmol/L (135-145); Total Protein 6.5 g/dl (6.3-8.2); eGFR > 60.00
[2025-09-08 21:42] LABS: Troponin I 0.015 ng/ml
[2025-09-08 22:15] VITALS: BP 139/91
[2025-09-08 23:00] VITALS: BP 137/97
[2025-09-08 23:28] LABS: D-Dimer 0.33 ug/mlFEU (0.00-0.50)
[2025-09-09] VITALS: BP 149/98
[2025-09-09 00:54] LABS: Troponin I < 0.012 ng/ml
[2025-09-09 01:00] VITALS: BP 142/91
[2025-09-09 01:31] VITALS: BP 157/97
== END 2025-09-09 01:38 | disposition home or self-care (01) ==
LOC: EMR 17:58
PROVIDERS: EMERGENCY PHYSICIAN Emergency Medicine; FAMILY PHYSICIAN Student in an Organized Health Care Education/Training Program
DX: R07.9 Chest pain, unspecified (principal); I10 Essential (primary) hypertension; E78.00 Pure hypercholesterolemia, unspecified; G47.30 Sleep apnea, unspecified; D86.9 Sarcoidosis, unspecified; N31.2 Flaccid neuropathic bladder, not elsewhere classified; F41.9 Anxiety disorder, unspecified; F32.A Depression, unspecified; F41.0 Panic disorder [episodic paroxysmal anxiety]; K44.9 Diaphragmatic hernia without obstruction or gangrene; Z87.820 Personal history of traumatic brain injury; Z82.49 Family history of ischemic heart disease and other diseases of the circulatory system
CPT/HCPCS: 99284; 71046; 76705; 80053; 83690; 83735; 84484; 85025; 85379; 93005

== ENCOUNTER 2025-09-14 09:49 | Outpatient (RCR) | payer MEDICARE, OTHER, SELFPAY ==
[2025-09-08 10:40] VITALS: BP 126/95
[2025-09-08] MEDS: INVANZ 60 MG IV (10:55)
[2025-09-09 11:00] VITALS: BP 125/89
[2025-09-09] MEDS: INVANZ 60 MG IV (11:01)
[2025-09-10 07:06] VITALS: BP 138/97
[2025-09-10] MEDS: INVANZ 60 MG IV (07:18)
[2025-09-10 07:40] VITALS: BP 145/105
[2025-09-11 07:49] VITALS: BP 151/97
[2025-09-11] MEDS: INVANZ 60 MG IV (07:51)
[2025-09-12 09:13] VITALS: BP 143/100
[2025-09-12] MEDS: INVANZ 60 MG IV (09:39)
[2025-09-13 08:35] VITALS: BP 152/93
[2025-09-13] MEDS: INVANZ 60 MG IV (08:46)
[2025-09-13 09:35] VITALS: BP 142/97
[2025-09-14 10:13] VITALS: BP 142/94
[2025-09-14] MEDS: INVANZ 60 MG IV (10:28)
[2025-09-14 10:30] LABS: Hematocrit 41.4 % (39.0-52.0); Hemoglobin 14.6 g/dL (13.0-18.0); Mean Corp Hgb Conc. 35.3 g/dL (33.0-37.0); Mean Corpuscular Volume 88.8 fL (80.0-94.0); Platelet Count 304 10^3/uL (130-400); Red Cell Dist. Width 12.2 % (11.5-14.5)
[2025-09-14 11:19] LABS: Blood Urea Nitrogen 10 mg/dl (9-20); Calcium 9.6 mg/dl (8.4-10.2); Carbon Dioxide 28 mmol/L (22-30); Chloride 103 mmol/L (98-107); Glucose 120 mg/dl (70-99); Potassium 4.8 mmol/L (3.5-5.1); Sodium 138 mmol/L (135-145); eGFR > 60.00
[2025-09-14 11:30] VITALS: BP 132/96
== END 2025-09-16 23:59 | disposition home or self-care (01) ==
LOC: OID 09:49
PROVIDERS: ATTENDING PHYSICIAN Internal Medicine Infectious Disease; FAMILY PHYSICIAN Student in an Organized Health Care Education/Training Program
DX: N39.0 Urinary tract infection, site not specified (principal)
CPT/HCPCS: 80048; 85025; 96365; J1335

== ENCOUNTER → 2025-09-29 16:46 | Outpatient (REF) | payer MEDICARE, OTHER, SELFPAY | LOC: RAD 16:46 | PROVIDERS: ATTENDING PHYSICIAN Physician Assistant Surgical; FAMILY PHYSICIAN Student in an Organized Health Care Education/Training Program | DX: R05.8 Other specified cough (principal) | CPT/HCPCS: 71046 ==

== ENCOUNTER 2025-10-18 12:49 | Observation (INO) | payer MEDICARE, OTHER, SELFPAY ==
[2025-10-18] VITALS (9 sets, daily range): BP systolic 118–176; BP diastolic 72–109; BMI 29.2; BMI 28.5
[2025-10-18] MEDS: NSS 1000 IV (11:04)
[2025-10-18 11:05] LABS: Glucose - Point of Care 110 mg/dl (70-99)
--- NOTE | 2025-10-18 11:08 | CON.NEURO ---
Addendum entered and electronically signed by Kimo Siddiqi MD 10/18/25 13:43:
Studies reviewed.
I have personally examined the patient. I reviewed and agree with the THEATRICAL AGENT's Note.
My addenda:
Awake, alert, interactive. No acute distress.
Speech intact.
Follows 2-step requests w/o difficulty. No tremor.
Extra-ocular movements grossly intact.
Facial movements full and symmetric. Hearing intact to normal conversational volume.
Normal UE movements bilaterally.
Neck: full ROM.
Chest: no dyspnea
Heart: no JVD
Ext: (-) Clubbing, (-) Cyanosis, (-) Edema
IMPRESSIONS/RECOMMENDATIONS:
Abrupt onset of right lower extremity weakness in a patient with a prior episode which was similar by his report
Differential diagnosis is vast. MRI of cervical thoracic and lumbar spines between the years of 2017 and 2019 were unremarkable. There is a possibility that the patient is experiencing a TIA causing current symptoms. Based on lack of significant
risk factors this is less likely and relatively young age. Alternatively, prior self-reported history of myelopathy may have produced current symptoms which is again less likely. There is no evidence currently that there is an intracranial
hemorrhage or stroke by current imaging
Patient should undergo MRI of brain without contrast to determine if there is a structural abnormality producing symptoms
Okay to initiate aspirin, consider clopidogrel as add-on therapy based on MRI of brain results. Would add clopidogrel if there is evidence of chronic or acute ischemic injury
Follow lipid profile
Goal of normotension
goal of normoglycemia
Continue usual therapies for neurogenic bladder
D/W patient
All questions answered.
Will continue to follow patient.
Original Note:
Documented by User: Areli Almonte NP 10/18/25 13:14
Neuro Assessment/Plan
Assessment
Patient is a 59 year old male presented to the [facility] on 10/18/2025 as stroke alert for RLE weakness, dysarthria and blurry vision.
CT perfusion:
CBF <30% Volume: 0 cc (estimate of ischemic core)
Tmax >6 second Volume: 0 cc (critically hypoperfused tissue)
CBF/Tmax Mismatch Volume: 0 cc (ischemic penumbra)
CBF/Tmax Mismatch Ratio: N/A
Hypoperfusion Index (Tmax >10s/Tmax >6s): N/A (predicts rate of collateral flow, infarct growth, and clinical outcome)
CBV Index (rCBV in Tmax >6s): N/A
CBF <20% Volume: 0 cc (for patient's who arrived to the hospital within 60 minutes of symptom onset)
Head CT: No acute intracranial abnormality identified. ASPECT score: 10
CTA head/neck:
1. Negative for major branch vessel occlusion, flow-limiting stenosis, or dissection.
2. 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
Plan
Differential: TIA/CVA vs migraine without aura vs functional neurological disorder
-check MRI brain without contrast to evaluate for stroke
-start ASA 81mg daily
-check hemoglobin A1C. Goal is normoglycemia.
-check LDL with goal <70, pending results may need atorvastatin
-PT/OT/ST evaluations
-continue neurochecks and NIHSS per unit guidelines
-stroke education to be provided
-follow up with patient's Neurologist
All questions encouraged and answered, plan of care discussed with patient and Dr. Siddiqi
Consultation
Order
Date of Consultation: 10/18/25
Requesting Provider: ED
Reason for Consult: stroke alert
Subjective/Objective
Subjective Data
Date of Service: October 18, 2025
Patient is a 59 year old male presented to the [facility] on 10/18/2025 for evaluation of a constellation of symptoms which started this morning. At 7am, he felt a pop in his head, near his forehead. He states he was going about his day and then at 9 AM
his right leg suddenly gave out on him. He has since been able to ambulate without any difficulty. He reports the feeling of facial numbness to the right side of his face. He also reports that his vision is blurry in both eyes. He reports that
he recently completed a course of amoxicillin for prevention of cough symptoms. He denies fevers or chills. He did not take any medications for his symptoms this morning. He reports a prior history of cerebral aneurysms which have not required
any intervention as yet. He also states that he has had 2 previous TIAs with similar symptoms. He presented to the ED for slurred speech, blurry vision and RLE weakness at 1051 and was a stroke alert. CT perfusion was negative. Head and neck CTA
negative for major branch vessel occlusion, flow-limiting stenosis, or dissection. 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 On assessment, patient NIHSS 0, no
dysarthria or aphasia, no RLE weakness therefore not a TNK candidate.
He was previously seen by our service in November 2023, 'History of Present Illness: This is a 57-year-old right-handed male who has presented to the hospital on 11/18/23 with report of headache, and right facial paresthesia and drooping starting 1.5
weeks ago. Patient is followed by a neurologist at [facility]. He has a history of a fall with head trauma not requiring surgery in August 2012. He suffered from post-concussive syndrome including headaches. His initial workup after
his head trauma incidentally found b/l cavernous carotid artery aneurysms measuring about 2mm that have been stable since that time. He has experienced headaches in the past associated with dizziness, right eye pressure and right face and scalp
numbness. He has undergone EEG and MRI testing in the past for these symptoms and the results were unremarkable. Per medical records, he has been on amitriptyline for headache prevention in the past but he cannot recall taking this. He has also been
on Imitrex, Maxalt, and gabapentin for headache relief but he did not tolerate these. He currently is taking Tylenol only for headache relief.
In October 2023 he had several weeks of an acute rhinosinusitis and completed a 7 day course of Ceftin. During that month he experienced headaches and he also reports that his blood pressure has been running high. About 1.5 weeks ago his headache
became constant and he also noted right facial drooping and numbness. He also noticed that when he eats and drinks he has been drooling out of the right side of his mouth. His headache initially was at the top of his head but now is posterior. It
has been a 7/10 but currently he says it is only mild. He denies any nausea, vomiting, photo/phonophobia with his headaches. He denies any vision changes, speech, dizziness, nausea, chest pain, palpitations, and shortness of breath. He does endorse
some RLE weakness. His last similar episode of right facial drooping was about one year ago and resolved spontaneously. He reports chronic swallowing difficulty secondary to a hiatal hernia. He also reports a neurogenic bladder with chronic
suprapubic catheter secondary to extensive bladder distention from prolonged urinary retention following his lumbar laminectomy in 2020. He repots that his blood pressure has been running with the systolic in the 160's at home. He has been taking
his nebivolol as ordered and has an appointment with his Manager Rehab Dr. Delcid later this month. He denies any history of TIA or stroke in the past and he is not taking any blood-thinning medications.'
Objective Data
Vital Signs
Pulse Resp BP Pulse Ox
85 18 163/109 98
10/18/25 10:45 10/18/25 10:45 10/18/25 10:45 10/18/25 10:45
Patient Allergies
ciprofloxacin (From Cipro) Allergy (Intermediate, Verified 09/13/25 09:00)
Itching/tendon in leg
sulfamethoxazole (From Bactrim) Allergy (Mild, Verified 09/13/25 09:00)
Rash
trimethoprim (From Bactrim) Allergy (Mild, Verified 09/13/25 09:00)
Rash
hydrocodone Allergy (Unknown, Verified 09/13/25 09:00)
Unknown
sumatriptan Allergy (Unknown, Verified 09/13/25:)
headache worsens
amlodipine Allergy (Verified 09/13/25:)
rash and swelling
amoxicillin Allergy (Verified 09/13/25:00)
confusion
cefdinir Allergy (Verified 09/13/25:)
Unknown
diphenhydramine (From Benadryl) Allergy (Verified 09/13/25:)
Unknown
doxycycline Allergy (Verified 09/13/25)
chest heavy/lips numb/SOB
lisinopril Allergy (Verified 09/13/25)
Itching
NSAIDS (Non-Steroidal Anti-Inflamma Allergy (Verified 10/18/25 10:43)
Unknown
valsartan Allergy (Verified 09/13/25)
tachycardia
ketorolac (From Toradol) Adverse Reaction (Unknown, Verified 09/13/25:)
Pharmacy to Review
hydralazine Adverse Reaction (Verified 09/13/25:)
pressure in head
hydrochlorothiazide Adverse Reaction (Verified 09/13/25:)
lower K+
spironolactone Adverse Reaction (Verified 09/13/25:)
high BP
CVA Assessment
Onset of Stroke Symptoms
Onset of symptoms known: Yes
Date of onset of symptoms: 10/18/25
Time of onset of symptoms: :30
Time pt last seen normal is known: Yes
Date last time pt seen normal: 10/18/25
Time last time pt seen normal: :30
NIH Stroke Score
Level of Consciousness: 0 - Alert
LOC Questions: 0-Answers both correctly
LOC Commands: 0-Performs both correctly
Best Horizontal Gaze: 0-Normal
Visual Champion: 0=Normal, no visual loss
Facial Palsy: 0=Normal, symmetrical
Motor - Right Arm: 0=No drift 10 seconds
Motor - Left Arm: 0=No drift 10 seconds
Motor - Right Le-No drift 5 seconds
Motor - Left Le-No drift 5 seconds
Limb Ataxia: 0-Absent
Sensation: 0-Normal
Best Language: 0-No aphasia
Dysarthria: 0-Normal
Extinction and Inattention: 0-No abnormality
NIH Total Score:: 0
Tenecteplase Contraindications
Inclusion and Exclusion criteria reviewed: Yes
IAT Contraindications: NIHSS < 6
Modified Sonja Score (MRS)
-
Modified Westmoreland Scale (mRS): No significant disability. Able to carry out usual activities.
Score: 1
Data Reviewed
-
CT-A: Report Reviewed and Image Reviewed
CT-Perfusion: Report Reviewed and Image Reviewed
CT Head: Report Reviewed and Image Reviewed
Medical Test Reports: Report Reviewed
Labs: Report Reviewed
Reviewed with: Physician and Patient
Old Records: Summarized
Medications
-
Home Medications
�Medication �Instructions �Recorded
valacyclovir 500 mg tablet 500 mg PO DAILY Infection 04/22/10
(Valtrex)
lorazepam 1 mg tablet 1 mg PO BID PRN ANXIETY 08/09/18
famotidine 20 mg tablet 20 mg PO BID Gastrointestinal Issue 10/19/18
nebivolol 2.5 mg tablet 1.25 mg PO DAILY Blood Pressure 11/01/21
albuterol sulfate 90 mcg/actuation 2 puff inhalation R Q4 PRN 11/18/23
aerosol inhaler SOB/WHEEZING
vibegron 75 mg tablet (Gemtesa) 75 mg PO HS 09/02/25
Ertapenem [Invanz] 1,000 mg 120 mls/hr IV Q24H 09/07/25
cranberry 1 tab PO HS 09/08/25
Past History
Past History
ED Past Medical History: GERD, HTN, Hypercholesterolemia, Psychiatric (Anxiety and Depression Panic disorder) and Other (sarcoidosis-in remission per pt 04/2017, 'aneurisms of carotids', concussion Sep 2016, migraines, Vertigo, Herniated disc, Sleep
apnea, Hiatal hernia, UTI, )
ED Past Surgical History: Orthopedic (ACL left knee repair, Jaw implants Laminectomy) and Urological (TURP, atonic bladder, suprapubic tube)
Family/Social History
Tobacco: Non-smoker
Alcohol: None
Drug: None
Personal: Partner
Living: with roommate
Employment: Disabled
Family History: CAD and Other

Documented by User: Kimo Siddiqi MD 10/18/25 13:32
CVA Assessment
NIH Stroke Score
NIH Total Score:: 0
Modified Westmoreland Score (MRS)
-
Score: 1
--- NOTE | 2025-10-18 11:17 | ED.CVA ---
History of Present Illness
General
Chief Complaint: CVA/TIA Symptoms
Time Seen by Provider: 10/18/25 10:51
Nursing documentation reviewed up to this point in time: agreed with
Onset of Stroke Symptoms
Onset of symptoms known: Yes
Date of onset of symptoms: 10/18/25
Time of onset of symptoms: 09:00
History of Present Illness
History of Present Illness:
59 y/o male presents to the ED for evaluation of a constellation of symptoms which started this am. At 7, he felt a pop in his head, near his forehead. He denies headache. He states he was going about his day and then at 9 AM his right leg
suddenly gave out on him. He has since been able to ambulate without any difficulty. He reports the feeling of facial numbness to the right side of his face. He also reports that his vision is blurry in both eyes. He reports that he recently
completed a course of amoxicillin for prevention of cough symptoms. He denies fevers or chills. He did not take any medications for his symptoms this morning. He reports a prior history of cerebral aneurysm which has not required any intervention
as yet. He also states that he has had 2 previous TIAs with predominant symptoms of confusion and visual disturbance.
Past History
Past History
ED Past Medical History: GERD, HTN, Hypercholesterolemia, Psychiatric (Anxiety and Depression Panic disorder) and Other (sarcoidosis-in remission per pt 04/2017, 'aneurisms of carotids', concussion Sep 2016, migraines, Vertigo, Herniated disc, Sleep
apnea, Hiatal hernia, UTI, )
ED Past Surgical History: Orthopedic (ACL left knee repair, Jaw implants Laminectomy) and Urological (TURP, atonic bladder, suprapubic tube)
Patient has exhibited threatening behavior?: No
Social History
Tobacco: Non-smoker
Alcohol: None
Drug: None
Personal: Partner
Living: with roommate
Employment: Disabled
Family History
Family History: CAD and Other
Phy Exam
Physical Exam
Physical Exam:
Patient is awake, alert, appears in no acute distress, bizarre affect, head is NCAT, PERRL, EOMI, visual champion intact, mucous membranes moist, conjunctiva pink, heart regular rate and rhythm without murmurs or ectopy, lungs are clear to
auscultation without wheezes rales or rhonchi, no JVD, abdomen is soft and nontender on palpation, extremities without edema, GCS is 15, moving all extremities symmetrically without focal deficit, equal hand grasp, equal interosseous motor function
bilateral upper extremities, no facial asymmetry noted, tongue is midline, strength 4 out of 5 x 4 extremities, intact sensation to light touch diffusely of bilateral extremities, patient reports alteration in sensation to right face compared to left
NIH Stroke Score
Level of Consciousness: 0 - Alert
LOC questions: 0-Answers both correctly
LOC Commands: 0-Performs both correctly
Best Gaze: 0-Normal
Visual Champion: 0=Normal, no visual loss
Facial palsy: 0=Normal, symmetrical
Motor - Right Arm: 0=No drift 10 seconds
Motor - Left Arm: 0=No drift 10 seconds
Motor - Right Le-No drift 5 seconds
Motor - Left Le-No drift 5 seconds
Limb Ataxia: 0-Absent
Sensation: 1-Mild loss (Right face)
Best Language: 0-No aphasia
Dysarthria: 0-Normal
Extinction and Inattention: 0-No abnormality
Total Score:: 1
Course
Orders/Labs/Results
Orders:
Orders
10/18/25 10:51
Bedside Glucose- Treatment ONCE
Cardiac Monitoring- Treatment ONCE
10/18/25 10:56
Electrocardiogram (*1) Stat
Reason for Study: Other
Other Reason for Exam: neuro symptoms
CT BRAIN PERF STROKE ALERT Urgent
Comment:
Reason For Exam: R leg weakness
CT HEAD STROKE ALERT W/o Cont Urgent
Comment:
Reason For Exam: R leg weakness, R facial numbness
CT HEAD/NECK ANG STROKE ALERT Urgent
Comment:
Reason For Exam: R leg weakness
NEUROLOGY CONSULT Urgent
Consulting Provider: Kimo Siddiqi
Was physician already notified: Yes
0.9% Sodium Chloride 1000 ml [Nss] 1,000 ml IV BOLUS
10/18/25 10:59
Orthotic Aide Urgent
10/18/25 11:06
Cardiovascular Evaluation Urgent
Comment: ADD
Complete Blood Count/With Diff Urgent
Comprehensive Metabolic Panel Urgent
Glycohemoglobin (HgbA1c) Urgent
PTT Urgent
Prothrombin Time Urgent
Troponin I Urgent
10/18/25 11:33
Add On- LAB Routine
Tests Added?: hgb A1C, lipid panel
10/18/25 12:34
Admit/Transfer Patient As Directed
Co-Sign Provider:
Level of Care: Observation services
Assign to:: Telemetry
Physician / Group: shashi
Diagnosis: TIA
Reason for Telemetry: CVA/TIA
Date to Stop Telemetry: 10/21/25
Time to Stop Telemetry: 11:00
10/18/25 12:35
PRN Pain Medication Management As Directed
May give lesser potent ordered pain med per pt: Yes
preference::
Protocol:: Medication orders for pain may be administered in a
manner that supports deferring to patient preference
when the pt is:
- Requesting an ordered lesser potent pain medication.
Least to most potent pain medications are defined
as: acetaminophen < NSAID < tramadol < opioids
(morphine, oxycodone, hydromorphone).
- Requesting a lesser dose of the same medication IF
ORDERED.
- Requesting a less intrusive route of administration
if both routes are prescribed by the provider (PO <
IV).
10/18/25 12:36
Code Status As Directed
Resuscitation Status: Full Code
10/18/25 13:00
Aspirin Chewable [Low Strength Aspirin] 81 mg PO DAILY
10/18/25 14:34
Acetaminophen [Tylenol/Feverall] 650 mg RECTAL Q4HPRN PRN
Acetaminophen [Tylenol] 650 mg PO Q4HPRN PRN
Atorvastatin [Lipitor] 40 mg PO QPM
Lorazepam [Ativan] 1 mg PO BIDPRN PRN ANXIETY
10/18/25 14:34
Case Management Consult ONCE
Case Management Consult: Discharge Planning
Comment: stroke/tia
DIETARY IP CONSULT Routine
Reason for Consult: stroke/TIA
Orthotic Aide Urgent
MR Brain Without Contrast Routine
Comment:
Reason For Exam: stroke/TIA
Recent pill cam endoscopy?: No
Activity As Directed
Activity Level: As Tolerated
NIH Stroke Scale As Directed
Directions: Per protocol
Comment: every shift and with any change in condition or mental status
Neurological Checks As Directed
Frequency: q4h
Additional Instructions:: q4h x 24h upon admission to the floor, then qshift & with any change in condition
and mental status
Patient Education As Directed
Type: Stroke education packet
Comment: provide to patient and family
Pneumatic Compression Sleeves As Directed
Type: Thigh high
Vital Signs As Directed
Frequency: Per unit guidelines
Call for:: BP greater than 180/105 mmHg or less than 100/60 mmHg
Ot Eval And Treat Routine
Pt Eval And Treat Routine
Activity Level: As Tolerated
Speech Therapy Eval & Treat Routine
DX Deep Vein Thrombosis Video Routine
10/18/25 20:00
Famotidine [Pepcid] 20 mg PO BID
10/18/25 22:00
Tolterodine Extended Release [Detrol LA] 4 mg PO HS
10/19/25 06:00
Cardiovascular Evaluation IN AM
10/19/25 08:00
Artificial Tears (Pf) [Refresh Eye Drops (Pf)] 1 drops OPHTH DAILY
Metoprolol [Lopressor] 6.25 mg PO BID
Phenylephrine 0.5% Regular Spr [Herberth-Synephrine 0.5% Nasal Holt] 1 spray NASAL DAILY
Valacyclovir HCl [Valtrex] 500 mg PO DAILY
10/21/25 11:00
DC Protocol for Telemetry ONCE
Abnormal Lab Results
10/18/25 10/18/25
11:04 11:06
MCH 31.3 H pg
(27.0-31.0)
Abs Immat Gran (auto) 0.1 H 10^3/uL
(0-0.05)
Triglycerides 156 H mg/dl
(10-149)
Total Cholesterol 230 H mg/dl
(50-199)
VLDL Cholesterol, Calc 31 H mg/dl
(0-30)
POC Glucose 110 H mg/dl
(70-99)
10/18/25 11:06
10/18/25 11:06
Vital Signs
Initial and Last Documented VS:
Initial Vital Signs
Pulse Resp BP Pulse Ox
85 18 163/109 98
10/18/25 10:45 10/18/25 10:45 10/18/25 10:45 10/18/25 10:45
Last Documented Vital Signs
Temp Pulse Resp BP Pulse Ox
98.1 F 64 22 151/97 96
10/18/25 14:47 10/18/25 14:47 10/18/25 14:47 10/18/25 14:47 10/18/25 14:47
MDM/Problems Addressed
Differential Diagnosis Includes:
Differential diagnosis to consider but not limited to cerebral aneurysm rupture, atypical migraine, TIA, CVA, intracranial mass along with other etiologies considered
Chronic conditions affecting care:
Hypertension, chronic indwelling Preston, anxiety, depression,migraine, hypercholesterolemia
*Pulse Oximetry
SaO2: 95
Oxygen Mode of Delivery: Room air
Patient hypoxic: no
*EKG
Interpreted by ED Provider?: Yes (I independently viewed and interpreted twelve-lead EKG showing normal sinus rhythm, rate 76, leftward axis, normal intervals, no ST elevation, this is a normal EKG, similar to prior from 09/08/2025)
*Business Executive Interpretation
Rate: normal (I independently viewed and interpreted rhythm strip showing normal sinus rhythm, no ectopy)
*Critical Care Note
Total Time (30-74mins, 75-104mins- exclusive of procedures): see note
comment:
Critical care statement: A total of 35 minutes of critical care time was provided for this patient. This includes management of unstable vital signs, evaluation of the patient at bedside, reviewing the patient's pertinent medical records, discussion
with consultants, review of old EKGs and review of pertinent medical records. This time with separate from time utilized to perform the aforementioned documented procedures
Data Reviewed
Review of Other/Old Records Reveals: Discharge Summary (I reviewed discharge summary dated 09/07/2025, Julio Houston-patient had been admitted for urinary tract infection. He has neurogenic bladder with chronic suprapubic catheter. He also has history
of anxiety, depression, hypertension)
Update Note
Update Note:
After my initial interview, I consulted neurology, Dr. Siddiqi for stroke alert. CT head along with CT angio head and neck with perfusion is ordered.
No evidence for acute worrisome process seen on CT head. No evidence for acute occlusive process or abnormality seen on perfusion as per verbal report in discussion with Dr. Siddiqi. Patient admitted to the hospitalist for further evaluation of
symptoms which may be related to TIA.
ED Attending Note
-
Portions of this chart may have been created with voice recognition software.� Occasional wrong word or��sound alike� substitutions may have occurred due to the inherent limitations of voice recognition software.
Discharge Plan
Departure
Patient Disposition: Admit
Date of Disposition: 10/18/25
Time of Disposition: 11:49
Presentation/result/management discussed w/ accepting MD/DO: Hospitalist
Discharge Problem:
Brain TIA
Interventions
Interventions:
*Risk Screen - Suicide Last Done: 10/18/25 10:47
*General Assessment Last Done: 10/18/25 11:13
*Neglect/Abuse Screening Last Done: 10/18/25 11:13
*ED COVID-19 Vaccine History Last Done: 10/18/25 11:13
*ED Influenza Vaccine History Last Done: 10/18/25 11:13
[facility] Fall Risk Assessment Tool Last Done: 10/18/25 10:36
*Nursing Disposition Last Done: 10/18/25 14:58
ED- Pulmonary Assessment Last Done: 10/18/25 11:13
ED- Neurological Assessment Last Done: 10/18/25 11:13
ED- Cardiac Assessment Last Done: 10/18/25 11:13
ED Swallowing Screen Last Done: 10/18/25 12:45
Discharge Date and Time
Discharge Date/Time: 10/18/25 14:59
[2025-10-18 11:25] LABS: Hematocrit 46.0 % (39.0-52.0); Hemoglobin 16.3 g/dL (13.0-18.0); Mean Corp Hgb Conc. 35.4 g/dL (33.0-37.0); Mean Corpuscular Volume 88.5 fL (80.0-94.0); Nucleated Red Blood Cells % 0 % (-); Platelet Count 272 10^3/uL (130-400); Red Cell Dist. Width 12.8 % (11.5-14.5)
[2025-10-18 11:36] LABS: INR 1.02; PT 13.5 Sec (11.4-14.6)
[2025-10-18 11:37] LABS: ALT (SGPT) 37 U/L (0-50); APTT 26.5 Sec (23.4-35.0); AST (SGOT) 21 U/L (17-59); Albumin 4.7 g/dl (3.5-5.0); Alkaline Phosphatase 64 U/L (38-126); Blood Urea Nitrogen 11 mg/dl (9-20); Calcium 9.5 mg/dl (8.4-10.2); Carbon Dioxide 26 mmol/L (22-30); Chloride 106 mmol/L (98-107); Estimated Creatinine Clearance 76 ml/min; Glucose 96 mg/dl (70-99); Potassium 4.2 mmol/L (3.5-5.1); Sodium 137 mmol/L (135-145); Total Protein 7.8 g/dl (6.3-8.2); eGFR > 60.00
[2025-10-18 11:49] LABS: Troponin I < 0.012 ng/ml
--- NOTE | 2025-10-18 12:10 | HPS.HSE ---
Addendum entered and electronically signed by Jaqueline Dobson MD 10/18/25 15:46:
This is an addendum to H&P written by Chantell Patino on 67. �Patient seen and examined independently with CLASSIFICATION INSPECTOR.
59-year-old male past medical history of prior TIAs, history of internal carotid aneurysms, neurogenic bladder with chronic suprapubic catheter, hypertension, hyperlipidemia, sarcoidosis, obstructive sleep apnea, anxiety/depression, GERD, migraines,
vertigo, presenting with pop in his head near his left forehead this morning. �At 9 AM his right leg suddenly gave out. �Facial numbness of right side of the face. �Blurry vision of both eyes. �Also with headache, dizziness, speech difficulty.
Recently completed amoxicillin for cough. �Denies fevers or chills.
Vital signs show blood pressure 160s. �CT head shows no acute intracranial abnormality. �CT head and neck shows no major branch vessel occlusion stenosis or dissection. �Very small saccular aneurysms along both intracranial internal carotid arteries
seen previously without change.
Patient with concern for potential TIA. �Neurology consulted. �Start aspirin. �Check MRI brain.
Original Note:
Family Physician
-
Family Physician: SOLE VILLA DO
Chief Complaint
-
blurry vision, slurred speech, right LE weakness.
History of Present Illness
59 y/o male with past medical history for GERD, hypertension, hypercholesteremia, anxiety, depression, panic, sarcoidosis, presents to the ED for evaluation of a constellation of symptoms which started this am. At 7, he felt a pop in his head, near
his forehead. he is complaining of headache, dizzy. around 9:30am, as he was doing dishes, his right leg gave out. he is still with right LE weakness. he complained of slurred speech. his right face was numb. He also reports that his vision is
blurry in both eyes. patient states his symptoms is getting better. He denies fevers or chills,cough, congestion, chest pain, sob. denied abdominal pain,n,v,d. patient has suprapubic catheter.
concern for TIA. admitting for further management
Medical History
Past Medical History
Past Medical History: Reports Other
Additional Past Medical History:
Pulmonary sarcoidosis, head injury, saccular aneurysm depression, anxiety, hypertension, carotid artery aneurysm, conversion disorder, PVCs, hypertension
Past Surgical History: Reports Other
Additional Past Surgical History:
Lumbar laminectomy, prostate surgery, TURP, suprapubic cath in abdomen, cataract surgery
Social History
Tobacco: Non-smoker
Alcohol: None
Drug: None
Personal: Partner
Living: With Family
Family History
Family History: Not pertinent
Allergies / Home Medications
Allergies reflects when Allergies were last updated in [facility].
Home Medications with original date entered in [employer]
Allergy/Medication List:
Allergies
Allergy/AdvReac Type Severity Reaction Status Date / Time
ciprofloxacin (From Cipro) Allergy Intermediate Itching/tendon Verified 09/13/25 09:00
in leg
sulfamethoxazole (From Allergy Mild Rash Verified 09/13/25 09:00
Bactrim)
trimethoprim (From Bactrim) Allergy Mild Rash Verified 09/13/25 09:00
hydrocodone Allergy Unknown Unknown Verified 09/13/25 09:00
sumatriptan Allergy Unknown headache Verified 09/13/25 09:00
worsens
amlodipine Allergy rash and Verified 09/13/25 09:00
swelling
amoxicillin Allergy confusion Verified 09/13/25 09:00
cefdinir Allergy Unknown Verified 09/13/25 09:00
diphenhydramine (From Allergy Unknown Verified 09/13/25 09:00
Benadryl)
doxycycline Allergy chest Verified 09/13/25 09:00
heavy/lips
numb/SOB
lisinopril Allergy Itching Verified 09/13/25 09:00
NSAIDS (Non-Steroidal Allergy Unknown Verified 10/18/25 10:43
Anti-Inflamma
valsartan Allergy tachycardia Verified 09/13/25 09:00
ketorolac (From Toradol) AdvReac Unknown Pharmacy Verified 09/13/25 09:00
to Review
hydralazine AdvReac pressure Verified 09/13/25 09:00
in head
hydrochlorothiazide AdvReac lower K+ Verified 09/13/25 09:00
spironolactone AdvReac high BP Verified 09/13/25 09:00
Home Medications
valacyclovir 500 mg tablet (Valtrex) 500 mg PO DAILY Infection 04/22/10
lorazepam 1 mg tablet 1 mg PO BIDPRN PRN ANXIETY 08/09/18
famotidine 20 mg tablet 20 mg PO BID Gastrointestinal Issue 10/19/18
nebivolol 2.5 mg tablet 1.25 mg PO DAILY Blood Pressure 11/01/21
vibegron 75 mg tablet (Gemtesa) 75 mg PO HS Urinary Issue 09/02/25
cranberry fruit 450 mg tablet (cranberry) 450 mg PO QPM Supplement 09/08/25
gentamicin 40 mg/mL injection solution 60 mg intraperitoneal Q48H suprapubic catheter 10/18/25
phenylephrine HCl 0.5 % nasal spray 1 spray intranasal DAILY Congestion 10/18/25
polyethylene glycol 400 0.25 % eye drops (Blink Tears) 1 drp ophthalmic (eye) DAILY both eyes 10/18/25
Review of Systems
-
Constitutional: Reports No Symptoms
EENT: Reports No Symptoms
Respiratory: Reports No Symptoms
Cardiac: Reports No Symptoms
Abdomen/GI: Reports No Symptoms
: Reports No Symptoms
Musculoskeletal: Reports No Symptoms
Skin: Reports No Symptoms
Neurological: Reports Dizzy, Headache, Weakness and Numbness
Endocrine: Reports No Symptoms
Hematologic/Lymphatic: Reports No Symptoms
Psych: Reports No Symptoms
Physical Exam
Vital Signs
Vital Signs
Pulse Resp BP Pulse Ox
75 28 161/108 95
10/18/25 11:00 10/18/25 11:00 10/18/25 11:00 10/18/25 11:25
Physical Exam
General: Well Developed, Well Nourished and No Apparent Distress
HEENT: NormoCephalic, Moist mucous membranes and Atraumatic
Respiratory: Clear
Cardiac: S1/S2 and Regular Rhythm; No Murmur or Rub
GI: Soft, Non Tender, Non Distended and Normal Bowel Sounds; No Organomegaly
Rectal: Deferred by Provider
Genito-urinary: Suprapubic Tube
Musculoskeletal: No Clubbing, No Cyanosis and No Edema
Skin: No Rash
Neuro: AO x 3 and Nonfocal/grossly intact
Psych: Calm
Laboratory Results
-
10/18/25 11:06
10/18/25 11:06
Laboratory Results
PT 13.5 Sec (11.4-14.6) 10/18/25 11:06
INR 1.02 10/18/25 11:06
APTT 26.5 Sec (23.4-35.0) 10/18/25 11:06
Total Bilirubin 0.7 mg/dl (0.2-1.3) 10/18/25 11:06
AST 21 U/L (17-59) 10/18/25 11:06
ALT 37 U/L (0-50) 10/18/25 11:06
Alkaline Phosphatase 64 U/L (38-126) 10/18/25 11:06
Troponin I < 0.012 ng/ml 10/18/25 11:06
Data Reviewed
-
CT Scan: Report Reviewed by me
Lab Data: Labs Reviewed by me
Impression/Plan
-
#concern for TIA
- statin, obtain A1c, lipid profile, PT OT
-obtain MRI
- Neurology consulted
- Head neck CTA with the impression of Negative for major branch vessel occlusion, flow-limiting stenosis, or dissection. 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
-head CT with No acute intracranial abnormality identified.
#Neurogenic Bladder
#Chronic Indwelling Suprapubic Catheter
-on gentamicin
- Continue Gemtesa for bladder spasms.
- Patient is followed by Dr. Ja Bird at [facility].
#Benign Hypertension
- Stable. Continue nebivolol.
#Anxiety / Depression
- Stable. Continue lorazepam PRN.
#GERD
-famotidine continued
#DVT Prophylaxis: Lovenox
#Code Status: Full
--- NOTE | 2025-10-18 13:13 | EDCM ---
Reviewed chart and met with pt bedside in ED. Lives with his SO Pita in second floor apartment, [address], has elevator access.
Independent in ADLs, personal care and ambulation. No assistive devices. Pt has chronic suprapubic catheter for past 2 years. He irrigates it every other night with Gentamycin solution per [facility] from pharmacy. Pt goes to [facility] for monthly
catheter changes. He is unhappy with the care at [facility], he has seen Dr Roca at and was also treated at [facility] in the past. He was asking if he should go to [facility]. I encouraged him to discuss his concerns with [facility].
Pt did require IV antibiotics given in OID after August admission.
Confirms prescription coverage.
COLBY reviewed and signed, copy left with pt.
PCP: Lennie Watkins
Pharmacy: [facility] [address]
CM will continue to follow for all discharge planning needs.
[2025-10-18 13:28] LABS: HDL Cholesterol 46 mg/dl; LDL Cholesterol, Calculated 153 mg/dl; Very Low Density Lipoprotein 31 mg/dl (0-30)
[2025-10-18] MEDS: LOW STRENGTH ASPIRIN 81 MG PO (13:29)
--- NOTE | 2025-10-18 16:30 | PTOTSP ---
Dysphagia Evaluation:
Pt presents w/ acute (TIA symptoms) and chronic (hx of TIAs, GERD, hiatal hernia) risk factors for aspiration/dysphagia. Pt reporting increased difficulty w/ swallowing since 10/17 evening. However, no overt s/sx of aspiration observed during bedside
swallow evaluation and 10/[address] negative for acute intracranial abnormality. It is recommended that pt begins Regulars, Thins diet w/ ST to F/U pending Brain MRI results.
Recommendations:
1. Regulars, Thins
2. Medications as best tolerated
3. Strategies: Slow rate, reflux precautions
4. ST to F/U pending Brain MRI results for further dysphagia and cognitive-linguistic assessment/treatment.
[2025-10-18] MEDS: SYRINGE NON-PUMP 30 MG IRRIG ×2 (17:46)
[2025-10-18] MEDS: SYRINGE NON-PUMP 30 ML IRRIG ×2 (17:46)
[2025-10-18] MEDS: PEPCID 20 MG PO (20:30)
[2025-10-18] MEDS: DETROL LA 4 MG PO (21:41)
[2025-10-19 03:17] VITALS: BP 114/72
[2025-10-19 07:42] LABS: HDL Cholesterol 40 mg/dl; LDL Cholesterol, Calculated 153 mg/dl; Very Low Density Lipoprotein 30 mg/dl (0-30)
[2025-10-19 08:04] LABS: Glycohemoglobin (HgbA1c) 5.4 % (4.0-5.9)
[2025-10-19] MEDS: VALTREX 500 MG PO (08:47)
[2025-10-19] MEDS: REFRESH EYE DROPS (PF) 1 DROPS OPHTH (08:47)
[2025-10-19] MEDS: PEPCID 20 MG PO (08:47)
[2025-10-19] MEDS: LOPRESSOR PO ×2 (08:47→08:58)
[2025-10-19] MEDS: NEO-SYNEPHRINE 0.5% NASAL SPRAY 1 SPRAY NASAL (08:48)
[2025-10-19] MEDS: LOW STRENGTH ASPIRIN 81 MG PO (08:48)
[2025-10-19 08:55] VITALS: BP 142/94
[2025-10-19] MEDS: TYLENOL 650 MG PO (08:57)
--- NOTE | 2025-10-19 09:32 | W.PN.NEURO.1 ---
Addendum entered and electronically signed by Kimo Siddiqi MD 10/19/25 12:01:
Studies reviewed.
I have personally examined the patient. I reviewed and agree with the OCEANOLOGIST's Note.
My addenda:
Awake, alert, interactive. No acute distress.
Speech intact.
Follows 2-step requests w/o difficulty. No tremor.
Extra-ocular movements grossly intact.
Facial movements full and symmetric. Hearing intact to normal conversational volume.
Normal UE movements bilaterally.
Neck: full ROM.
Chest: no dyspnea
Heart: no JVD
Ext: (-) Clubbing, (-) Cyanosis, (-) Edema
IMPRESSIONS/RECOMMENDATIONS:
Abrupt onset of right lower extremity weakness in a patient with prior history of migraine. With unremarkable neuroimaging and the patient espouses and onset of headache after experiencing right sided symptoms and perioral symptoms, the most likely
diagnosis producing symptomatology is migraine with aura.
Discontinue aspirin
Further evaluation of the patient's neurogenic bladder is likely warranted
Patient likely will need routine prophylaxis against migraine
Provide prochlorperazine 10 mg daily may repeat x 1 as needed for recurrent headache
Agree with addition of atorvastatin to remediate the patient's hypercholesterolemia
D/W patient
All questions answered.
Will continue to follow as needed. Patient should follow with his usual outpatient neurologist
Original Note:
Today's Communication / Plan
-
.
Neuro Assessment/Plan
Assessment
IMPRESSIONS/RECOMMENDATIONS:
Abrupt onset of right lower extremity weakness in a patient with a prior episode which was similar by his report; etiology of symptoms is likely migraine aura.
MRI of cervical thoracic and lumbar spines between the years of 2017 and 2019 were unremarkable. Duration of symptoms is too long at this point to be supportive of TIA. Alternatively, prior self-reported history of myelopathy may have produced
current symptoms which is again less likely. There is no evidence currently that there is an intracranial hemorrhage or stroke by current imaging.
CT perfusion:
CBF <30% Volume: 0 cc (estimate of ischemic core)
Tmax >6 second Volume: 0 cc (critically hypoperfused tissue)
CBF/Tmax Mismatch Volume: 0 cc (ischemic penumbra)
Head CT: No acute intracranial abnormality identified. ASPECT score: 10
CTA head/neck:
1. Negative for major branch vessel occlusion, flow-limiting stenosis, or dissection.
2. 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
-MRI brain 10/18/25: No MRI evidence for an acute infarct.
Plan
-Discontinue aspirin.
-Continue thiamine 100mg daily.
-Provide ondansetron 4mg IV x1 now for headache as prochlorperazine is contraindicated due to sulfa allergy.
-stroke education packet to be provided
-Continue usual therapies for neurogenic bladder
-follow up with patient's Neurologist
All questions encouraged and answered, plan of care discussed with patient and Dr. Siddiqi
Subjective/Objective
Subjective Data
Date of Service: October 19, 2025
Patient reports that his weakness persists and now it involves both arms and legs. He still endorses slightly blurry vision, primarily in his left eye. He reports a headache that started after his MRI brain yesterday. He notes frequent migraines in
the past couple of months but his usual Neurology office with [facility] was unable to see him for an appointment.
Objective Data
Vital Signs
Temp Pulse Resp BP Pulse Ox
98.2 F 63 18 142/94 95
10/19/25 08:55 10/19/25 08:55 10/19/25 08:55 10/19/25 08:55 10/19/25 08:55
Lab Results
10/18/25 11:06
10/18/25 11:06
PT 13.5 Sec (11.4-14.6) 10/18/25 11:06
INR 1.02 10/18/25 11:06
APTT 26.5 Sec (23.4-35.0) 10/18/25 11:06
Sodium 137 mmol/L (135-145) 10/18/25 11:06
Potassium 4.2 mmol/L (3.5-5.1) 10/18/25 11:06
BUN 11 mg/dl (9-20) 10/18/25 11:06
Glucose 96 mg/dl (70-99) 10/18/25 11:06
Calcium 9.5 mg/dl (8.4-10.2) 10/18/25 11:06
LDL Cholesterol, Calc 153 mg/dl 10/19/25 06:24
Patient Allergies
ciprofloxacin (From Cipro) Allergy (Intermediate, Verified 09/13/25 09:00)
Itching/tendon in leg
sulfamethoxazole (From Bactrim) Allergy (Mild, Verified 09/13/25 09:00)
Rash
trimethoprim (From Bactrim) Allergy (Mild, Verified 09/13/25 09:00)
Rash
hydrocodone Allergy (Unknown, Verified 09/13/25 09:00)
Unknown
sumatriptan Allergy (Unknown, Verified 09/13/25 09:00)
headache worsens
amlodipine Allergy (Verified 09/13/25 09:00)
rash and swelling
amoxicillin Allergy (Verified 09/13/25 09:00)
confusion
cefdinir Allergy (Verified 09/13/25 09:00)
Unknown
diphenhydramine (From Benadryl) Allergy (Verified 09/13/25 09:00)
Unknown
doxycycline Allergy (Verified 09/13/25 09:00)
chest heavy/lips numb/SOB
lisinopril Allergy (Verified 09/13/25 09:00)
Itching
valsartan Allergy (Verified 09/13/25 09:00)
tachycardia
ketorolac (From Toradol) Adverse Reaction (Unknown, Verified 09/13/25 09:00)
Pharmacy to Review
hydralazine Adverse Reaction (Verified 09/13/25 09:00)
pressure in head
hydrochlorothiazide Adverse Reaction (Verified 09/13/25 09:00)
lower K+
NSAIDS (Non-Steroidal Anti-Inflamma Adverse Reaction (Verified 10/18/25 13:26)
bleeding, tolerates aspirin
spironolactone Adverse Reaction (Verified 09/13/25 09:00)
high BP
Review of Systems
-
History Source: Patient
EENT: Negative Blurry Vision, Decreased Vision or Swallowing Difficulty
Respiratory: Negative Cough or Trouble Breathing
Neuro: Headache and Weakness; Negative Dizzy, Numbness, Ataxia, Tremors or Speech Problem
Physical Exam
-
General: No Apparent Distress
Eyes: No Ptosis and PERRLA
HEENT: Normocephalic and Atraumatic
Neck: Full Range of Motion
Respiratory: No Dyspnea
Extremities: No Clubbing, No Cyanosis and No Edema
Extended Neurological Exam
Mood & Affect: Mood Unremarkable and Affect Unremarkable
Attention Span & Concentration: Awake, Alert, Interactive and No Difficulty with 2 Step Request
Memory: Unremarkable and Able to Recall
Tremor: Hand Tremor Absent and Head Tremor Absent
Involuntary Movement: None
Speech: Quality Unremarkable, Quantity Unremarkable and Rate of Production Unremarkable
Cranial Nerves III, IV, : Extraocular Movement: Extraocular Movement Full in all Directions
Cranial Nerve VII: Facial Symmetry: Normal Facial Symmetry
Cranial Nerve VIII: Hearing: Unremarkable Hearing to Normal Conversational Volume
Muscle Strength, Overall: Spontaneously Moves
Coordination: [id number] Testing Unremarkable
Data Reviewed
-
CT-A: Report Reviewed and Image Reviewed
CT-Perfusion: Report Reviewed and Image Reviewed
CT Head: Report Reviewed and Image Reviewed
MRI Head: Report Reviewed and Image Reviewed
Labs: Report Reviewed
Lipid Profile: Report Reviewed
HgbA1C: Report Reviewed
Reviewed with: Physician and Patient
Medications
-
Active Medications
Generic Name Dose Route Start Last Admin
Trade Name Freq PRN Reason Stop Dose Admin
Acetaminophen 650 mg 10/18/25 14:34
Acetaminophen 650 Mg Rectal Suppository RECTAL 11/15/25 14:33
Q4HPRN PRN
CHISHOLM, mild pain, or temp >100.4F
Acetaminophen 650 mg 10/18/25 14:34 10/19/25 08:57
Acetaminophen 325 Mg Tablet PO 11/15/25 14:33 650 mg
Q4HPRN PRN Administration
CHISHOLM, mild pain, or temp >100.4F
Artificial Tears 1 drops 10/19/25 08:00 10/19/25 08:47
Artificial Tears Pf (Refresh) 10 Drop Droperette OPHTH 11/16/25 07:59 1 drops
DAILY JOSE Administration
Atorvastatin Calcium 40 mg 10/18/25 14:34 10/18/25 16:55
Atorvastatin (Lipitor) 40 Mg Tablet PO 11/15/25 14:33 Not Given
QPM JOSE
Famotidine 20 mg 10/18/25 20:00 10/19/25 08:47
Famotidine 20 Mg Tablet PO 11/15/25 19:59 20 mg
BID JOSE Administration
Gentamicin Sulfate 30 mg/ 30 mls @ 0 mls/hr 10/18/25 16:00 10/18/25 17:46
Sterile Water 29.25 ml/ Device IRRIG 10/19/25 15:59 30 mls
Q48H JOSE Administration
As Directed
Gentamicin Sulfate 30 mg/ 30 mls @ 0 mls/hr 10/18/25 16:00 10/18/25 17:46
Sterile Water 29.25 ml/ Device IRRIG 10/19/25 15:59 30 mls
Q48H JOSE Administration
As Directed
Lorazepam 1 mg 10/18/25 14:34
Lorazepam 1 Mg Tablet PO 11/15/25 14:33
BIDPRN PRN
ANXIETY
Metoprolol Tartrate 6.25 mg 10/19/25 08:00 10/19/25 10:51
Metoprolol 12.5 Mg Regular Release Dose (1/2 Of 25 Mg Tablet) PO 11/16/25 07:59 6.25 mg
BID JOSE Administration
Phenylephrine HCl 1 spray 10/19/25 08:00 10/19/25 08:48
Phenylephrine 0.5% (Nasal [place]) 15 Ml Bottle NASAL 11/16/25 07:59 1 spray
DAILY JOSE Administration
Sodium Chloride 0 flush 10/18/25 15:00
Sodium Chloride 0.9% (Flush) Syringe IV 11/15/25 14:59
PER PROTOCOL JOSE
Thiamine HCl 100 mg 10/19/25 11:00 10/19/25 10:00
Thiamine 100 Mg Tablet PO 10/21/25 08:01 100 mg
DAILY JOSE Administration
Tolterodine Tartrate 4 mg 10/18/25 22:00 10/18/25 21:41
Tolterodine 4 Mg Extended Release Capsule PO 11/15/25 21:59 4 mg
HS JOSE Administration
Valacyclovir HCl 500 mg 10/19/25 08:00 10/19/25 08:47
Valacyclovir Hcl 500 Mg Tablet PO 10/29/25 07:59 500 mg
DAILY JOSE Administration
Home Medications
�Medication �Instructions �Recorded
valacyclovir 500 mg tablet 500 mg PO DAILY Infection 04/22/10
(Valtrex)
lorazepam 1 mg tablet 1 mg PO BIDPRN PRN ANXIETY 08/09/18
famotidine 20 mg tablet 20 mg PO BID Gastrointestinal Issue 10/19/18
nebivolol 2.5 mg tablet 1.25 mg PO DAILY Blood Pressure 11/01/21
vibegron 75 mg tablet (Gemtesa) 75 mg PO HS Urinary Issue 09/02/25
cranberry fruit 450 mg tablet 450 mg PO QPM Supplement 09/08/25
(cranberry)
Gentamicin Bladder Irrigation 1 dose intra-catheter Q48H bladder 10/18/25
infection
phenylephrine HCl 0.5 % nasal spray 1 spray intranasal DAILY Congestion 10/18/25
polyethylene glycol 400 0.25 % eye 1 drp ophthalmic (eye) DAILY both 10/18/25
drops (Blink Tears) eyes
[2025-10-19] MEDS: VITAMIN B1 100 MG PO (10:00)
[2025-10-19 10:43] VITALS: BP 161/101; BP 189/107; PULSE 62; O2SAT 96
[2025-10-19] MEDS: LOPRESSOR 6.25 MG PO (10:51)
[2025-10-19 11:03] VITALS: BP 161/101; PULSE 121
[2025-10-19 11:45] VITALS: BP 170/100
[2025-10-19] MEDS: ATIVAN 1 MG PO (11:45)
--- NOTE | 2025-10-19 11:46 | PTCARENOTE ---
Patient c/o of anxiety. Bp 170/100. Md made aware. PRN ativan administered per order. Will recheck bp in 30 minutes.
[2025-10-19 11:56] LABS: Urine Character Clear (Clear)
[2025-10-19 12:07] LABS: Urine Red Blood Cell 0-2 /HPF (0-2); Urine Squamous Cell 0-2 /LPF (Few)
[2025-10-19 13:10] VITALS: BP 145/93
--- NOTE | 2025-10-19 13:10 | W.PN.HOSP.TC ---
Addendum entered and electronically signed by Amaury Holland MD 10/19/25 16:26:
[id number]
Original Note:
Today's Communication/Plan
-
statin
Compazine prn
vestibular therapy
f/u neurology, PCP outpt
HTN control
Assessment / Plan
Assessment / Plan
Physical Exam
General: Well Developed, Well Nourished and No Apparent Distress
HEENT: NormoCephalic, Moist mucous membranes and Atraumatic
Respiratory: Clear
Cardiac: S1/S2 and Regular Rhythm; No Murmur or Rub
GI: Soft, Non Tender, Non Distended and Normal Bowel Sounds; No Organomegaly
Rectal: Deferred by Provider
Genito-urinary: Suprapubic Tube
Musculoskeletal: No Clubbing, No Cyanosis and No Edema
Skin: No Rash
Neuro: AO x 3 and Nonfocal/grossly intact
Psych: Calm
# right lower extremity weakness in a patient with prior history of migraine
# right sided symptoms and perioral symptoms
#Migraine with Aura
-MRI negative
-Compazine PRN
-Neuro outpatient
-Vestibular therapy
-Head neck CTA with the impression of Negative for major branch vessel occlusion, flow-limiting stenosis, or dissection. 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
-head CT with No acute intracranial abnormality identified.
#Neurogenic Bladder
#Chronic Indwelling Suprapubic Catheter
-on gentamicin
- Continue Gemtesa for bladder spasms.
- Patient is followed by Dr. Ja Bird at [facility].
#Flank pain
-CT A/P with contrast and UA negative
-likely related to immobility, and possible bladder spasms
-f/u urology outpatient
-no obvious infection seen, remains afebrile
-F/u CBC, CMP outpt
#Benign Hypertension
- Stable. Continue nebivolol.
-improved with anxiolytics as well
-f/u outpatient
#Hyperlipidemia
-statin
#Anxiety / Depression
- Stable. Continue lorazepam PRN.
#GERD
-famotidine continued
#DVT Prophylaxis: Lovenox
#Code Status: Full
More than 30 minutes spent in discharge including
Final examination of the patient
Summarizing hospital stay
Instructions for continuing care to all relevant caregivers
Preparation of discharge records, prescriptions, and referral forms
Total time spent (in minutes): 36
Anticipated Discharge: Today
Subjective/Interval History
-
Date of Service: October 19, 2025
No acute events overnight, today complaint of some flank pain when administering gentamicin
Objective Data
-
Vital Signs:
Vital Signs
Temp Pulse Resp BP Pulse Ox
98.2 F 63 18 170/100 95
10/19/25 08:55 10/19/25 08:55 10/19/25 08:55 10/19/25 11:45 10/19/25 08:55
I&O
10/18/25 10/19/25 10/20/25
06:59 06:59 06:59
Intake Total 1440 / 1440
Output Total 2250 / 2250
Balance -810 / -810
Review of Systems
-
History Source: Patient
All other systems: Not reviewed unless documented
Data Reviewed
-
CT Scan: Report Reviewed by me
MRI: Report Reviewed by me
Labs: Labs Reviewed by me
--- NOTE | 2025-10-19 13:16 | W.DS.TRANS ---
DC Summary - Commercial Project Manager
-
Discharge Instructions:
Discharge Diagnosis/Procedures migraine with aura
Possible BPPV
Hyperlipidemia
Diet Low Fat,Low Cholesterol
Activity As tolerated
Blood Work cbc and cmp in 1 week
Other Services OT
Instructions:
Stand-Alone Forms:
Changes to Home Medications: Yes
Discharge Medications:
DC Medications w/original date entered in [employer]
valacyclovir 500 mg tablet (Valtrex) 500 mg PO DAILY Infection 04/22/10
lorazepam 1 mg tablet 1 mg PO BIDPRN PRN ANXIETY 08/09/18
famotidine 20 mg tablet 20 mg PO BID Gastrointestinal Issue 10/19/18
nebivolol 2.5 mg tablet 1.25 mg PO DAILY Blood Pressure 11/01/21
vibegron 75 mg tablet (Gemtesa) 75 mg PO HS Urinary Issue 09/02/25
cranberry fruit 450 mg tablet (cranberry) 450 mg PO QPM Supplement 09/08/25
Gentamicin Bladder Irrigation 1 dose intra-catheter Q48H bladder infection 10/18/25
phenylephrine HCl 0.5 % nasal spray 1 spray intranasal DAILY Congestion 10/18/25
polyethylene glycol 400 0.25 % eye drops (Blink Tears) 1 drp ophthalmic (eye) DAILY both eyes 10/18/25
atorvastatin 40 mg tablet 40 mg PO QPM 30 days #30 tabs 10/19/25
prochlorperazine maleate 10 mg tablet (Compazine) 10 mg PO DAILY PRN headache, migraine with aura #30 tabs 10/19/25
Home Medication Changes
atorvastatin 40 mg tablet 40 mg PO QPM 30 days #30 tabs 10/19/25
prochlorperazine maleate 10 mg tablet (Compazine) 10 mg PO DAILY PRN headache, migraine with aura #30 tabs 10/19/25
Pending Results: No
--- NOTE | 2025-10-19 13:24 | CM ---
Addendum entered by Danae Landeros 10/19/25 13:43:
Patient is getting Outpatient script from Hospitalist for special PT program.
Original Note:
F/U: Patient discharging and has no DC needs. PLAN: DC Home No Needs.
[2025-10-19] MEDS: FLUZONE (6 mos+) 2025-2026 FORMULA 0.5 ML IM (13:36)
== END 2025-10-19 13:49 | disposition home or self-care (01) ==
LOC: 2 NORTH 12:49
PROVIDERS: Registered Nurse; ADMITTING PHYSICIAN Hospitalist; ATTENDING PHYSICIAN Internal Medicine; CONSULT PHYSICIAN Psychiatry & Neurology Neurology; EMERGENCY PHYSICIAN Emergency Medicine; FAMILY PHYSICIAN Student in an Organized Health Care Education/Training Program
DX: G43.109 Migraine with aura, not intractable, without status migrainosus (principal); R20.0 Anesthesia of skin; H53.8 Other visual disturbances; K21.9 Gastro-esophageal reflux disease without esophagitis; F41.9 Anxiety disorder, unspecified; E78.00 Pure hypercholesterolemia, unspecified; I10 Essential (primary) hypertension; F41.0 Panic disorder [episodic paroxysmal anxiety]; R53.1 Weakness; G47.33 Obstructive sleep apnea (adult) (pediatric); D86.0 Sarcoidosis of lung; D86.9 Sarcoidosis, unspecified; K44.9 Diaphragmatic hernia without obstruction or gangrene; N32.89 Other specified disorders of bladder; N31.2 Flaccid neuropathic bladder, not elsewhere classified; F32.A Depression, unspecified; K76.0 Fatty (change of) liver, not elsewhere classified; J34.1 Cyst and mucocele of nose and nasal sinus; I67.1 Cerebral aneurysm, nonruptured; R29.810 Facial weakness; R13.10 Dysphagia, unspecified; Z87.440 Personal history of urinary (tract) infections; Z90.79 Acquired absence of other genital organ(s); Z82.49 Family history of ischemic heart disease and other diseases of the circulatory system; Z88.1 Allergy status to other antibiotic agents; Z88.5 Allergy status to narcotic agent; Z88.0 Allergy status to penicillin; Z88.2 Allergy status to sulfonamides; Z86.79 Personal history of other diseases of the circulatory system; Z86.73 Personal history of transient ischemic attack (TIA), and cerebral infarction without residual deficits; Z88.8 Allergy status to other drugs, medicaments and biological substances; Z79.624 Long term (current) use of inhibitors of nucleotide synthesis; Z93.59 Other cystostomy status; Z79.899 Other long term (current) drug therapy; Z23 Encounter for immunization
CPT/HCPCS: 0042T; 70450; 70496; 70498; 70551; 74177; 80053; 80061; 81003; 81015; 82962; 83036; 84484; 85025; 85610; 85730; 87086; 90656; 92610; 93005; 96360; 97162; 97167; 99291; G0008; G0378; Q9967

== ENCOUNTER 2025-10-21 09:39 | Outpatient (RCR) | payer MEDICARE, OTHER, SELFPAY ==
[2025-10-21 10:00] VITALS: BP 142/92
[2025-10-21] MEDS: LEQVIO 284 MG SC (10:18)
== END 2025-10-24 10:40 | disposition home or self-care (01) ==
LOC: OID 09:39
PROVIDERS: ATTENDING PHYSICIAN Internal Medicine Cardiovascular Disease
DX: E78.5 Hyperlipidemia, unspecified (principal); I25.84 Coronary atherosclerosis due to calcified coronary lesion
CPT/HCPCS: 96372; J1306